=== PATIENT | female | born 1970 | race Caucasian/White ===

== ENCOUNTER 2017-09-27 15:15 | Outpatient (RCR) | payer OTHER, MEDICAID, SELFPAY ==
--- NOTE | 2017-06-05 16:45 | PT.OTN ---
Current Diagnoses Radiculopathy, lumbosacral region (06/05/17) Muscle weakness (generalized) (06/05/17) Myalgia (06/05/17) Sprain of sacroiliac joint, subsequent encounter (06/05/17) On June 05, 2017 our therapy services consisting of Speech, Occupational, and Physical therapy transitioned from [employer] electronic documentation system to a new [employer] electronic system. All documentation prior to June 05 can be found under [employer] saved data. From June 05 forward, all medical record documentation will be in [employer] 6.1.
--- NOTE | 2017-06-05 18:24 | PT.OTN ---
Current Diagnoses Radiculopathy, lumbosacral region (06/05/17) Muscle weakness (generalized) (06/05/17) Myalgia (06/05/17) Sprain of sacroiliac joint, subsequent encounter (06/05/17) Physical Therapy Treatment Note PT-OP-A Visit Information Start: 06/05/17 16:49 Freq: Status: Active Protocol: Activity Type Activity Date Activity User E-Sign Co-Sign Detail Recorded Client Recorded Date Recorded By Document 06/05/17 16:20 GGD [email or web address] 06/05/17 18:24 GGD 06/05/17 16:20 Out-Patient Physical Therapy Visit Information [Visit Information] -Visit Type Treatment Note -Visit Start Time 16:00 -Visit Stop Time 16:55 -Total Visit Minutes 55 -Visit Number 3 -Number of OVER THE ROAD DRIVER Visits 1 [Evaluation Information] -Evaluation Date 05/16/17 PT-OP-C Subjective Start: 06/05/17 16:49 Freq: Status: Active Protocol: Activity Type Activity Date Activity User E-Sign Co-Sign Detail Recorded Client Recorded Date Recorded By Document 06/05/17 16:20 GGD [email or web address] 06/05/17 18:24 GGD 06/05/17 16:20 OP-PT Subjective [Patient Comments] -Patient Comments Pt states she been doing her HEP. She has increase in pain with sleep and wakes from pain after 3-4 hours of sleep . OP-PT Pain Assessment [Location] Right Lower -Pain Location Details Right leg -Intensity 5 -Scale Used Numeric (1 - 10 ) -Description Sharp Shooting -Radiating Location hip into lower leg -Other Pain Aggravating Factors Sleeping PT-OP-Q Treatments Start: 06/05/17 16:49 Freq: Status: Active Protocol: Activity Type Activity Date Activity User E-Sign Co-Sign Detail Recorded Client Recorded Date Recorded By Document 06/05/17 16:20 GGD [email or web address] 06/05/17 18:24 GGD 06/05/17 16:20 Therapeutic Exercises [Supine Exercises] 1 -Supine Exercise Name Pirifomis Stretch -Side right -Reps/Minutes 2 [Sitting Exercises] 1 -Sitting Exercise Name Sciatic Nerve glides -Side right -Reps/Minutes 10 each -Comments SB B knee flexed, SB L with R knee ext , SB L with R knee ext & SB L C/S Manual Therapy Treatment [Soft Tissue Mobilization] 2 -Body Location quadratus lumborum -Mobilization Type Rolling -Intensity/Depth Moderate -Body Position Prone 1 -Body Location Pirformis -Mobilization Type Myofascial Release Rolling Sustained Pressure -Intensity/Depth Deep -Body Position Prone [Joint Mobilizations] 1 -Joint L4-5, L5-S1 -Direction Gap, distraction -Grade III -Body Position Sidelying -Reps/Duration 15 -Comments in left sidelying PT-OP-R Modalities Start: 06/05/17 16:49 Freq: Status: Active Protocol: Activity Type Activity Date Activity User E-Sign Co-Sign Detail Recorded Client Recorded Date Recorded By Document 06/05/17 16:20 GGD [email or web address] 06/05/17 18:24 GGD 06/05/17 16:20 Hot Pack/Cold Pack [Treatment] Cold Pack -Location L/S, -Patient Position Supine -Treatment Duration (minutes) 10 -Patient Tolerance Good PT-OP-T Assessment and Plan Start: 06/05/17 16:49 Freq: Status: Active Protocol: Activity Type Activity Date Activity User E-Sign Co-Sign Detail Recorded Client Recorded Date Recorded By Document 06/05/17 16:20 GGD [email or web address] 06/05/17 18:24 GGD 06/05/17 16:20 Physical Therapy Assessment [Assessment Summary] -Assessment Pt need cues for correct form with nerve glides and not to stretch into pain. She had decrease in pain after STM . Physical Therapy Plan [Frequency and Duration] -Frequency of Treatment 2x/Week -Duration of Treatment 8 weeks -Plan of Care Start Date 05/16/17 -Plan of Care End Date 07/10/17 [Next Visit Focus/Plan] -Next Visit Plan Progression under current plan and stretching, hip strengthening and review sciatic nerve glides.
--- NOTE | 2017-06-07 17:37 | PT.OTN ---
Current Diagnoses Radiculopathy, lumbosacral region (06/07/17) Muscle weakness (generalized) (06/07/17) Myalgia (06/07/17) Sprain of sacroiliac joint, subsequent encounter (06/07/17) Physical Therapy Treatment Note PT-OP-A Visit Information Start: 06/05/17 16:49 Freq: Status: Active Protocol: Activity Type Activity Date Activity User E-Sign Co-Sign Detail Recorded Client Recorded Date Recorded By Document 06/07/17 15:47 [place] [id number] 06/07/17 15:49 [facility] 06/07/17 15:47 Out-Patient Physical Therapy Visit Information [Visit Information] -Visit Type Treatment Note -Visit Start Time 15:15 -Visit Stop Time 15:58 -Total Visit Minutes 43 -Visit Number 4 -Number of WELDING MACHINE OPERATOR ARC Visits 0 [Evaluation Information] -Evaluation Date 05/16/17 PT-OP-C Subjective Start: 06/05/17 16:49 Freq: Status: Active Protocol: Activity Type Activity Date Activity User E-Sign Co-Sign Detail Recorded Client Recorded Date Recorded By Document 06/07/17 15:47 [place] [id number] 06/07/17 15:49 [facility] 06/07/17 15:47 OP-PT Subjective [Patient Comments] -Patient Comments Pt reports that she has less pain with sleep and feels like she had less pain at work today. -Patient Reported Progress Improving PT-OP-L Special Tests Start: 06/07/17 15:49 Freq: Status: Active Protocol: Activity Type Activity Date Activity User E-Sign Co-Sign Detail Recorded Client Recorded Date Recorded By Document 06/07/17 15:49 [place] [id number] 06/07/17 15:50 [facility] 06/07/17 15:49 Special Tests [LE Neural Special Tests] Sciatic Nerve Tension -Test Results (+) -Comments 35 deg hip flex (+) sciatic pain 60 deg. hip flexion without sciatic pain with hip add and IR ( modified slump) PT-OP-Q Treatments Start: 06/05/17 16:49 Freq: Status: Active Protocol: Activity Type Activity Date Activity User E-Sign Co-Sign Detail Recorded Client Recorded Date Recorded By Document 06/07/17 15:50 [facility] [email or web address] 06/07/17 15:54 [facility] 06/07/17 15:50 Therapeutic Exercises [Supine Exercises] 1 -Supine Exercise Name Piriformis Stretch -Side right -Reps/Minutes 2 min [Sitting Exercises] 1 -Sitting Exercise Name Sciatic Nerve glides -Side right -Equipment Used RLE on 5 step; seated, mirror for visual -Reps/Minutes 2 x 10 each -Comments SB L with R knee ext, SB L with R knee ext & SB L C/S Manual Therapy Treatment [Soft Tissue Mobilization] 2 -Body Location quadratus lumborum -Mobilization Type Rolling -Intensity/Depth Moderate -Body Position Sidelying -Comments Right [Joint Mobilizations] 1 -Joint L4-5, L5-S1 -Direction Gap, distraction -Grade III -Body Position Sidelying -Reps/Duration 18 -Comments L sidelying, towel under L side @ L4 PT-OP-R Modalities Start: 06/05/17 16:49 Freq: Status: Active Protocol: Activity Type Activity Date Activity User E-Sign Co-Sign Detail Recorded Client Recorded Date Recorded By Document 06/07/17 15:54 [facility] [email or web address] 06/07/17 15:54 [facility] 06/07/17 15:54 Hot Pack/Cold Pack [Treatment] Cold Pack -Location L/S, R hip -Patient Position Supine -Treatment Duration (minutes) 10 -Patient Tolerance Good PT-OP-T Assessment and Plan Start: 06/05/17 16:49 Freq: Status: Active Protocol: Activity Type Activity Date Activity User E-Sign Co-Sign Detail Recorded Client Recorded Date Recorded By Document 06/07/17 15:54 [facility] [email or web address] 06/07/17 16:00 [facility] 06/07/17 15:54 Physical Therapy Assessment [Assessment Summary] -Assessment Pt with decreased hypomobility of L4 on L5, but still with QL tension. 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 Pt with good understanding of HEP, less cuing for LE alignment required. Physical Therapy Plan [Frequency and Duration] -Frequency of Treatment 2x/Week -Duration of Treatment 8 wks -Plan of Care Start Date 05/16/17 -Plan of Care End Date 07/10/17 [Next Visit Focus/Plan] -Next Visit Plan continue with lumbar mobilizations, nerve glides in sitting (can progress to 6 step for RLE).
--- NOTE | 2017-06-12 18:00 | PT.OTN ---
Current Diagnoses Radiculopathy, lumbosacral region (06/12/17) Muscle weakness (generalized) (06/12/17) Myalgia (06/12/17) Sprain of sacroiliac joint, subsequent encounter (06/12/17) Physical Therapy Treatment Note PT-OP-A Visit Information Start: 06/05/17 16:49 Freq: Status: Active Protocol: Document 06/12/17 16:15 GGD (Rec: 06/12/17 17:59 GGD [email or web address]) Out-Patient Physical Therapy Visit Information Visit Information Visit Type Treatment Note Visit Start Time 15:50 Visit Stop Time 16:45 Total Visit Minutes 55 Visit Number 5 Number of QUANTITATIVE RESEARCH ANALYST Visits 1 Evaluation Information Evaluation Date 05/16/17 PT-OP-C Subjective Start: 06/05/17 16:49 Freq: Status: Active Protocol: Document 06/12/17 16:15 GGD (Rec: 06/12/17 17:59 GGD [email or web address]) OP-PT Subjective Patient Comments Patient Comments Pt states that her LBK feel tight today. PT-OP-L Special Tests Start: 06/07/17 15:49 Freq: Status: Active Protocol: Document 06/07/17 15:49 [facility] (Rec: 06/07/17 15:50 [facility] [email or web address]) Special Tests LE Neural Special Tests Sciatic Nerve Tension Test Results (+) Comments 35 deg hip flex (+) sciatic pain 60 deg. hip flexion without sciatic pain with hip add and IR (modified slump) PT-OP-Q Treatments Start: 06/05/17 16:49 Freq: Status: Active Protocol: Document 06/12/17 16:15 GGD (Rec: 06/12/17 17:59 GGD [email or web address]) Therapeutic Exercises Supine Exercises 1 Supine Exercise Name Piriformis Stretch Side right Reps/Minutes 2 min Sitting Exercises 1 Sitting Exercise Name Sciatic Nerve glides Side right Equipment Used RLE on 6 step; seated, mirror for visual Reps/Minutes 2 x 10 each Comments SB L with R knee ext, SB L with R knee ext & SB L C/S Manual Therapy Treatment Soft Tissue Mobilization 2 Body Location quadratus lumborum Mobilization Type Rolling Intensity/Depth Moderate Body Position Sidelying 1 Body Location Pirformis Mobilization Type Rolling Sustained Pressure Intensity/Depth Moderate Body Position Sidelying Joint Mobilizations 1 Joint L4-5, L5-S1 Direction Gap, distraction Grade III Body Position Sidelying Reps/Duration 18 Comments L sidelying, towel under L side @ L4 PT-OP-R Modalities Start: 06/05/17 16:49 Freq: Status: Active Protocol: Document 06/12/17 16:15 GGD (Rec: 06/12/17 17:59 GGD [email or web address]) Hot Pack/Cold Pack Treatment Cold Pack Location L/S, R hip Patient Position Supine Treatment Duration (minutes) 10 Patient Tolerance Good PT-OP-T Assessment and Plan Start: 06/05/17 16:49 Freq: Status: Active Protocol: Document 06/12/17 16:15 GGD (Rec: 06/12/17 17:59 GGD [email or web address]) Physical Therapy Assessment Assessment Summary Assessment Pt had increase in muscle tension and tenderness to QL Physical Therapy Plan Frequency and Duration Frequency of Treatment 2x/Week Duration of Treatment 8 wks Plan of Care Start Date 05/16/17 Plan of Care End Date 07/10/17 Next Visit Focus/Plan Next Visit Plan Progress under current plan of care and hip strengthening
--- NOTE | 2017-06-19 16:33 | PT.OTN ---
Current Diagnoses Radiculopathy, lumbosacral region (06/19/17) Muscle weakness (generalized) (06/19/17) Myalgia (06/19/17) Sprain of sacroiliac joint, subsequent encounter (06/19/17) Physical Therapy Treatment Note PT-OP-A Visit Information Start: 06/05/17 16:49 Freq: Status: Active Protocol: Document 06/19/17 15:21 GGD (Rec: 06/19/17 16:33 GGD [email or web address]) Out-Patient Physical Therapy Visit Information Visit Information Visit Type Treatment Note Visit Start Time 15:50 Visit Stop Time 16:45 Total Visit Minutes 55 Visit Number 6 Number of INTERNAL WHOLESALER Visits 2 Evaluation Information Evaluation Date 05/16/17 PT-OP-C Subjective Start: 06/05/17 16:49 Freq: Status: Active Protocol: Document 06/19/17 15:21 GGD (Rec: 06/19/17 16:33 GGD [email or web address]) OP-PT Subjective Patient Comments Patient Comments Pt states that she is sore. She been working more and only had one day off. Document 06/19/17 15:21 GGD (Rec: 06/19/17 16:33 GGD [email or web address]) Therapeutic Exercises Supine Exercises 2 Supine Exercise Name Hamstring Side right Resistance passive 1 Supine Exercise Name Piriformis Stretch Side right Reps/Minutes 2 min Sitting Exercises 1 Sitting Exercise Name Sciatic Nerve glides Side right Equipment Used RLE on 6 step; seated, mirror for visual Reps/Minutes 2 x 10 each Comments SB L with R knee ext, SB L with R knee ext & SB L C/S Manual Therapy Treatment Soft Tissue Mobilization 2 Body Location quadratus lumborum Mobilization Type Rolling Intensity/Depth Moderate Body Position Sidelying 1 Body Location Pirformis Mobilization Type Rolling Sustained Pressure Intensity/Depth Moderate Body Position Sidelying Joint Mobilizations 1 Joint L4-5, L5-S1 Direction Gap, distraction Grade III Body Position Sidelying Reps/Duration 18 Comments L sidelying, towel under L side @ L4 PT-OP-R Modalities Start: 06/05/17 16:49 Freq: Status: Active Protocol: Document 06/19/17 15:21 GGD (Rec: 06/19/17 16:33 GGD [email or web address]) Hot Pack/Cold Pack Treatment Cold Pack Location L/S, R hip Patient Position Supine Treatment Duration (minutes) 10 Patient Tolerance Good PT-OP-T Assessment and Plan Start: 06/05/17 16:49 Freq: Status: Active Protocol: Document 06/19/17 15:21 GGD (Rec: 06/19/17 16:33 GGD [email or web address]) Physical Therapy Assessment Assessment Summary Assessment Pt had decrease in pain after stretches. Physical Therapy Plan Frequency and Duration Frequency of Treatment 2x/Week Duration of Treatment 8 wks Plan of Care Start Date 05/16/17 Plan of Care End Date 07/10/17 Next Visit Focus/Plan Next Visit Plan Progress under current plan of care and flexibility
--- NOTE | 2017-06-21 16:09 | PT.OTN ---
Current Diagnoses Radiculopathy, lumbosacral region (06/21/17) Muscle weakness (generalized) (06/21/17) Myalgia (06/21/17) Sprain of sacroiliac joint, subsequent encounter (06/21/17) Physical Therapy Treatment Note PT-OP-A Visit Information Start: 06/05/17 16:49 Freq: Status: Active Protocol: Document 06/21/17 15:57 [facility] (Rec: 06/21/17 16:08 [facility] [email or web address]) Out-Patient Physical Therapy Visit Information Visit Information Visit Type Treatment Note Visit Start Time 15:15 Visit Stop Time 16:05 Total Visit Minutes 50 Visit Number 7 Number of ANALYSIS OR RESEARCH SAFETY INSPECTOR Visits 0 Evaluation Information Evaluation Date 05/16/17 PT-OP-C Subjective Start: 06/05/17 16:49 Freq: Status: Active Protocol: Document 06/21/17 15:57 [facility] (Rec: 06/21/17 16:08 [facility] [email or web address]) OP-PT Subjective Patient Comments Patient Comments Pt notes that her buttock and leg symptoms are better, but still has a knot in the R back . Patient Reported Progress Improving PT-OP-F Manual Assessment Start: 06/05/17 16:49 Freq: Status: Active Protocol: Document 06/21/17 15:57 [facility] (Rec: 06/21/17 16:08 [facility] [email or web address]) Manual Assessments Soft Tissue Assessment Soft Tissue Mobility Assessment TTP: R QL. PT-OP-L Special Tests Start: 06/07/17 15:49 Freq: Status: Active Protocol: Document 06/07/17 15:49 [facility] (Rec: 06/07/17 15:50 [facility] [email or web address]) Special Tests Neural Special Tests- Lower Body Sciatic Nerve Tension Test Results (+) Comments 35 deg hip flex (+) sciatic pain 60 deg. hip flexion without sciatic pain with hip add and IR (modified slump) PT-OP-Q Treatments Start: 06/05/17 16:49 Freq: Status: Active Protocol: Document 06/21/17 15:57 [facility] (Rec: 06/21/17 16:08 [facility] [email or web address]) Therapeutic Exercises Supine Exercises 3 Supine Exercise Name LTR Side bilateral Reps/Minutes 2 min 1 Supine Exercise Name Piriformis Stretch Side right Reps/Minutes 2 min Standing Exercises 1 Standing Exercise Name R QL stretch @ // bars Reps/Minutes 6 min. Manual Therapy Treatment Soft Tissue Mobilization 2 Body Location quadratus lumborum Mobilization Type Rolling Intensity/Depth Moderate Body Position Sidelying Comments 18 min Joint Mobilizations 1 Joint L4-5, L5-S1 Direction Gap, distraction Grade III Body Position Sidelying Reps/Duration 12 min Comments L sidelying PT-OP-R Modalities Start: 06/05/17 16:49 Freq: Status: Active Protocol: Document 06/21/17 15:57 [facility] (Rec: 06/21/17 16:08 [facility] [email or web address]) Hot Pack/Cold Pack Treatment Cold Pack Location L/S, R hip Patient Position Prone Treatment Duration (minutes) 10 Patient Tolerance Good PT-OP-T Assessment and Plan Start: 06/05/17 16:49 Freq: Status: Active Protocol: Document 06/21/17 15:57 [facility] (Rec: 06/21/17 16:08 [facility] [email or web address]) Physical Therapy Assessment Assessment Summary Assessment Pt with decreased QL tension and tenderness with manual therapy and stretching techniques. Pt appears to be reporting less distal symptoms , but does present with positive secondary tension of musculature of the lumbar spine. Physical Therapy Plan Frequency and Duration Frequency of Treatment 2x/Week Duration of Treatment 8 wks Plan of Care Start Date 05/16/17 Plan of Care End Date 07/10/17 Next Visit Focus/Plan Next Visit Plan check QL tension and tenderness, attempt quadruped position with progression toward alt LE extension if tolerable.
--- NOTE | 2017-06-26 17:21 | PT.OTN ---
Current Diagnoses Radiculopathy, lumbosacral region (06/26/17) Muscle weakness (generalized) (06/26/17) Myalgia (06/26/17) Sprain of sacroiliac joint, subsequent encounter (06/26/17) Physical Therapy Treatment Note PT-OP-A Visit Information Start: 06/05/17 16:49 Freq: Status: Active Protocol: Document 06/26/17 15:15 GGD (Rec: 06/26/17 17:21 GGD [email or web address]) Out-Patient Physical Therapy Visit Information Visit Information Visit Type Treatment Note Visit Start Time 15:15 Visit Stop Time 16:05 Total Visit Minutes 50 Visit Number 8 Number of SHEET METAL TECHNICIAN Visits 1 Evaluation Information Evaluation Date 05/16/17 PT-OP-C Subjective Start: 06/05/17 16:49 Freq: Status: Active Protocol: Document 06/26/17 15:15 GGD (Rec: 06/26/17 17:21 GGD [email or web address]) OP-PT Subjective Patient Comments Patient Comments Pt states that she feels more less tight and doing stretching everyday. PT-OP-F Manual Assessment Start: 06/05/17 16:49 Freq: Status: Active Protocol: Document 06/21/17 15:57 [facility] (Rec: 06/21/17 16:08 [facility] [email or web address]) Manual Assessments Soft Tissue Assessment Soft Tissue Mobility Assessment TTP: R QL. PT-OP-L Special Tests Start: 06/07/17 15:49 Freq: Status: Active Protocol: Document 06/07/17 15:49 [facility] (Rec: 06/07/17 15:50 [facility] [email or web address]) Special Tests Neural Special Tests- Lower Body Sciatic Nerve Tension Test Results (+) Comments 35 deg hip flex (+) sciatic pain 60 deg. hip flexion without sciatic pain with hip add and IR (modified slump) PT-OP-Q Treatments Start: 06/05/17 16:49 Freq: Status: Active Protocol: Document 06/26/17 15:15 GGD (Rec: 06/26/17 17:21 GGD [email or web address]) Therapeutic Exercises Supine Exercises 3 Supine Exercise Name LTR Side bilateral Reps/Minutes 2 min 1 Supine Exercise Name Piriformis Stretch Side right Reps/Minutes 2 min Standing Exercises 1 Standing Exercise Name R QL stretch @ // bars Reps/Minutes 6 min. Other Exercises 1 Other Exercise Name Quad Alt LE Reps/Minutes 10 Manual Therapy Treatment Soft Tissue Mobilization 2 Body Location quadratus lumborum Mobilization Type Rolling Intensity/Depth Moderate Body Position Sidelying Comments 18 min Joint Mobilizations 1 Joint L4-5, L5-S1 Direction Gap, distraction Grade III Body Position Sidelying Reps/Duration 12 min Comments L sidelying PT-OP-R Modalities Start: 06/05/17 16:49 Freq: Status: Active Protocol: Document 06/26/17 15:15 GGD (Rec: 06/26/17 17:21 GGD [email or web address]) Hot Pack/Cold Pack Treatment Cold Pack Location L/S, R hip Patient Position Prone Treatment Duration (minutes) 10 Patient Tolerance Good PT-OP-T Assessment and Plan Start: 06/05/17 16:49 Freq: Status: Active Protocol: Document 06/26/17 15:15 GGD (Rec: 06/26/17 17:21 GGD [email or web address]) Physical Therapy Assessment Assessment Summary Assessment PT improving with mobility and decrease muscle tenderness. Physical Therapy Plan Frequency and Duration Frequency of Treatment 2x/Week Duration of Treatment 8 wks Plan of Care Start Date 05/16/17 Plan of Care End Date 07/10/17 Next Visit Focus/Plan Next Visit Plan Progress under current plan of care and stabilization
--- NOTE | 2017-06-28 17:55 | PT.OTN ---
Current Diagnoses Radiculopathy, lumbosacral region (06/28/17) Muscle weakness (generalized) (06/28/17) Myalgia (06/28/17) Sprain of sacroiliac joint, subsequent encounter (06/28/17) Physical Therapy Treatment Note PT-OP-A Visit Information Start: 06/05/17 16:49 Freq: Status: Active Protocol: Document 06/28/17 16:05 [facility] (Rec: 06/28/17 17:54 [facility] [email or web address]) Out-Patient Physical Therapy Visit Information Visit Information Visit Type Treatment Note Visit Start Time 15:15 Visit Stop Time 16:05 Total Visit Minutes 50 Visit Number 9 Number of AVIATION MAINTENANCE INSTRUCTOR Visits 0 Evaluation Information Evaluation Date 05/16/17 PT-OP-C Subjective Start: 06/05/17 16:49 Freq: Status: Active Protocol: Document 06/28/17 16:05 [facility] (Rec: 06/28/17 17:54 [facility] [email or web address]) OP-PT Subjective Patient Comments Patient Comments Pt notes no pain in upper back this session. She admits that her lower back has been a little sore but no pain distally. PT-OP-F Manual Assessment Start: 06/05/17 16:49 Freq: Status: Active Protocol: Document 06/21/17 15:57 [facility] (Rec: 06/21/17 16:08 [facility] [email or web address]) Manual Assessments Soft Tissue Assessment Soft Tissue Mobility Assessment TTP: R QL. PT-OP-L Special Tests Start: 06/07/17 15:49 Freq: Status: Active Protocol: Document 06/07/17 15:49 [facility] (Rec: 06/07/17 15:50 [facility] [email or web address]) Special Tests Neural Special Tests- Lower Body Sciatic Nerve Tension Test Results (+) Comments 35 deg hip flex (+) sciatic pain 60 deg. hip flexion without sciatic pain with hip add and IR (modified slump) PT-OP-Q Treatments Start: 06/05/17 16:49 Freq: Status: Active Protocol: Document 06/28/17 16:05 [facility] (Rec: 06/28/17 17:54 [facility] [email or web address]) Therapeutic Exercises Supine Exercises 5 Supine Exercise Name Alternating hip/knee flex/ext Side bilateral Equipment Used 55 cm ball 4 Supine Exercise Name Bridging Side bilateral Equipment Used 55 cm ball Reps/Minutes 15 reps 3 Supine Exercise Name LTR Side bilateral Equipment Used 55 cm ball Reps/Minutes 2 min 1 Supine Exercise Name Piriformis Stretch Side right Reps/Minutes 2 min Sitting Exercises 2 Sitting Exercise Name piriformis stretch Reps/Minutes 4 min Other Exercises 1 Other Exercise Name Quad Alt LE Reps/Minutes 10 Manual Therapy Treatment Soft Tissue Mobilization 3 Body Location lumbosacral mm. Mobilization Type Strumming Intensity/Depth Moderate Body Position Sidelying Comments right Joint Mobilizations 1 Joint L4-5, L5-S1 Direction Gap, distraction Grade III Body Position Sidelying Reps/Duration 14 min Comments L sidelying PT-OP-R Modalities Start: 06/05/17 16:49 Freq: Status: Active Protocol: Document 06/28/17 16:05 [facility] (Rec: 06/28/17 17:54 [facility] [email or web address]) Hot Pack/Cold Pack Treatment Cold Pack Location L/S, R hip Patient Position Prone Treatment Duration (minutes) 10 Patient Tolerance Good PT-OP-T Assessment and Plan Start: 06/05/17 16:49 Freq: Status: Active Protocol: Document 06/28/17 16:05 [facility] (Rec: 06/28/17 17:54 [email or web address] Physical Therapy Assessment Assessment Summary Assessment Pt with less antalgic gait, and able to perform seated piriformis stretch (unable to do at initial evaluation). Physical Therapy Plan Next Visit Focus/Plan Next Note Type Treatment Note Next Visit Plan core stability Please Sign and Return: I have reviewed this Plan of Care and certify that the skilled therapy services above are required to meet the patient???s needs. Physician Signature Date Printed Name and Credentials Clinical Instructor Signature Printed Name and Credentials
--- NOTE | 2017-07-05 16:20 | PT.OTN ---
Current Diagnoses Radiculopathy, lumbosacral region (07/05/17) Muscle weakness (generalized) (07/05/17) Myalgia (07/05/17) Sprain of sacroiliac joint, subsequent encounter (07/05/17) Physical Therapy Treatment Note PT-OP-A Visit Information Start: 06/05/17 16:49 Freq: Status: Active Protocol: Document 07/05/17 16:10 RCC (Rec: 07/05/17 16:20 RCC [email or web address]) Out-Patient Physical Therapy Visit Information Visit Information Visit Type Treatment Note Visit Start Time 15:15 Visit Stop Time 16:10 Total Visit Minutes 55 Visit Number 10 Number of ENTRY LEVEL ACCOUNT MANAGER Visits 0 Evaluation Information Evaluation Date 05/16/17 PT-OP-C Subjective Start: 06/05/17 16:49 Freq: Status: Active Protocol: Document 07/05/17 16:10 RCC (Rec: 07/05/17 16:20 RCC [email or web address]) OP-PT Subjective Patient Comments Patient Comments Pt reports she has no lower leg pain this past week, but has had some R sided low back pain increased while at work. PT-OP-F Manual Assessment Start: 06/05/17 16:49 Freq: Status: Active Protocol: Document 07/05/17 16:10 RCC (Rec: 07/05/17 16:20 RCC [email or web address]) Manual Assessments Soft Tissue Assessment Soft Tissue Mobility Assessment Moderate tension in R QL and piriformis. PT-OP-L Special Tests Start: 06/07/17 15:49 Freq: Status: Active Protocol: Document 06/07/17 15:49 RCC (Rec: 06/07/17 15:50 RCC [email or web address]) Special Tests Neural Special Tests- Lower Body Sciatic Nerve Tension Test Results (+) Comments 35 deg hip flex (+) sciatic pain 60 deg. hip flexion without sciatic pain with hip add and IR (modified slump) PT-OP-Q Treatments Start: 06/05/17 16:49 Freq: Status: Active Protocol: Document 07/05/17 16:10 RCC (Rec: 07/05/17 16:20 RCC [email or web address]) Therapeutic Exercises Supine Exercises 2 Supine Exercise Name Hamstring Side right Resistance passive 1 Supine Exercise Name Piriformis Stretch Side right Reps/Minutes 2 min Sidelying Exercises 1 Sidelying Exercise Name R QL stretch Side right Reps/Minutes 2 min Manual Therapy Treatment Soft Tissue Mobilization 3 Body Location lumbosacral mm. Mobilization Type Strumming Intensity/Depth Moderate Body Position Sidelying Comments right 10 min 2 Body Location quadratus lumborum Mobilization Type Rolling Intensity/Depth Moderate Body Position Sidelying Comments 20 min 1 Body Location Pirformis Mobilization Type Rolling Sustained Pressure Intensity/Depth Moderate Body Position Sidelying Comments 10 min PT-OP-R Modalities Start: 06/05/17 16:49 Freq: Status: Active Protocol: Document 07/05/17 16:10 RCC (Rec: 07/05/17 16:20 RCC [email or web address]) Hot Pack/Cold Pack Treatment Cold Pack Location L/S, R hip Patient Position Supine Treatment Duration (minutes) 10 Patient Tolerance Good PT-OP-T Assessment and Plan Start: 06/05/17 16:49 Freq: Status: Active Protocol: Document 07/05/17 16:10 RCC (Rec: 07/05/17 16:20 [facility] [email or web address]) Physical Therapy Assessment Assessment Summary Assessment Pt with increased tension in quadratus lumborum on the R, but no more symptoms below the lumbosacral spine. Piriformis flexibility appears to be improving with greater ease for stretching. Physical Therapy Plan Frequency and Duration Frequency of Treatment 2x/Week Duration of Treatment 8 wks Plan of Care Start Date 05/16/17 Plan of Care End Date 07/10/17 Next Visit Focus/Plan Next Note Type Re-Evaluation Next Visit Plan Re-assess objective measures. Please Sign and Return: I have reviewed this Plan of Care and certify that the skilled therapy services above are required to meet the patient?s needs. Physician Signature Date Printed Name and Credentials Clinical Instructor Signature Printed Name and Credentials
--- NOTE | 2017-07-10 17:20 | PT.OPPOC ---
Current Diagnoses Radiculopathy, lumbosacral region (07/10/17) Muscle weakness (generalized) (07/10/17) Myalgia (07/10/17) Sprain of sacroiliac joint, subsequent encounter (07/10/17) Provider Visit Care Team Role Provider Type Nahun Mariee MD Family Provider Physician Primary Care Provider Specialty: Family Practice Address: [address] [place] [address], [id number] Email: DALTON Thomas Attending Provider Non-Staff Specialty: Medical Address: [address] [place] [address], [id number] Email: Plan Of Care PT-OP-T Assessment and Plan Start: 06/05/17 16:49 Freq: Status: Active Protocol: Document 07/10/17 16:54 EA (Rec: 07/10/17 17:17 EA [id number]) Physical Therapy Assessment Rehab Potential Rehabilitation Potential Good Goals Three Impairment Grade 2 tenderness to upper gluteals and SI joint. Chief Transfer And Pumphouse Operator Goal (LTG) Patient will exhibit grade 0-1 tenderness to right SI jnt and upper gluteal region LTG Duration 4 wks Two Impairment Increase right lateral trunk bending during gait Care Home Goal (LTG) Patient will exhibit improve core control with decrease lateral trunk bending to right . 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 Patient also exhibited increased lateral trunk bending to right during heel strike to left which placing increase stress to SI joint. During the course of the treatment, patient is progressing and will continue to benefit with skilled PT. Plan of Care Dates Plan of Care Start Date 05/16/17 Plan of Care End Date 07/10/17 Please Sign and Return: I have reviewed this Plan of Care and certify that the skilled therapy services above are required to meet the patient?s needs. Physician Signature Date Printed Name and Credentials Clinical Instructor Signature Printed Name and Credentials
--- NOTE | 2017-07-10 17:20 | PT.OTRE ---
Current Diagnoses Radiculopathy, lumbosacral region (07/10/17) Muscle weakness (generalized) (07/10/17) Myalgia (07/10/17) Sprain of sacroiliac joint, subsequent encounter (07/10/17) Surgical History History of carpal tunnel repair Provider Visit Care Team Role Provider Type Nahun Mariee MD Family Provider Physician Primary Care Provider Specialty: Family Practice Address: [address] [place] [address], [id number] Email: DALTON Thomas Attending Provider Non-Staff Specialty: Medical Address: [address] [place] [address], [id number] Email: Physical Therapy Re-Evaluation PT-OP-A Visit Information Start: 06/05/17 16:49 Freq: Status: Active Protocol: Document 07/10/17 16:54 EA (Rec: 07/10/17 17:17 EA [id number]) Out-Patient Physical Therapy Visit Information Visit Information Visit Type Treatment Note Visit Note Progress report perform to his visit Total Visit Minutes 55 Visit Number 11 PT-OP-C Subjective Start: 06/05/17 16:49 Freq: Status: Active Protocol: Document 07/10/17 16:54 EA (Rec: 07/10/17 17:17 EA [id number]) OP-PT Subjective Patient Comments Patient Comments Patient reports that pain comes and goes and rated 5/10 with weight bearing activities and 2/10 with rest. Patient states she might undergo MRI if pain does not improve with PT. Patient Reported Progress Improving Patient Questionnaires Oswestry Low Back Index Oswestry Score 13 Oswestry Impairment 1 to 19% Impaired (Score 1-19) PT-OP-F Manual Assessment Start: 06/05/17 16:49 Freq: Status: Active Protocol: Document 07/05/17 16:10 RCC (Rec: 07/05/17 16:20 RCC [email or web address]) Manual Assessments Soft Tissue Assessment Soft Tissue Mobility Assessment Moderate tension in R QL and piriformis. PT-OP-L Special Tests Start: 06/07/17 15:49 Freq: Status: Active Protocol: Document 07/10/17 16:54 EA (Rec: 07/10/17 17:17 EA [id number]) Special Tests Lumbar Spine Special Tests Other- 2 Test Results + single leg step up Straight Leg Raise Test Results + pain at SI joint Comments No pain radiation thigh Other- 1 Test Results + Gaenlen's test PT-OP-Q Treatments Start: 06/05/17 16:49 Freq: Status: Active Protocol: Document 07/10/17 16:54 EA (Rec: 07/10/17 17:17 EA [id number]) Therapeutic Exercises Supine Exercises 4 Supine Exercise Name Bridging Side bilateral Equipment Used 55 cm ball Reps/Minutes 15 reps Comments with isomet hip ABD: BTB 2 Supine Exercise Name Hamstring Side right Resistance passive 1 Supine Exercise Name Piriformis Stretch Side right Reps/Minutes 2 min Prone Exercises 1 Prone Exercise Name Right HIP extension with Abdominal bracing Reps/Minutes 15 x 2 Sidelying Exercises 1 Sidelying Exercise Name Clamshell Side right Resistance BTB Reps/Minutes x 12 reps x 2 Gait Training Gait Activity 1 Description Focus on decreasing lateral trunk bending to right Manual Therapy Treatment Soft Tissue Mobilization 3 Body Location lumbosacral mm. Mobilization Type Strumming Intensity/Depth Moderate Body Position Sidelying Comments right 10 min 2 Body Location quadratus lumborum Mobilization Type Rolling Intensity/Depth Moderate Body Position Sidelying 1 Body Location Pirformis Mobilization Type Rolling Sustained Pressure Intensity/Depth Moderate Body Position Sidelying PT-OP-R Modalities Start: 06/05/17 16:49 Freq: Status: Active Protocol: Document 07/10/17 16:54 EA (Rec: 07/10/17 17:17 EA [id number]) Electric Stimulation Electric Stimulation Interferential Current (IFC) Body Location Right UG, Paralumbars Duration (Minutes) 15 Combined With Heat/Cold Hot Pack PT-OP-T Assessment and Plan Start: 06/05/17 16:49 Freq: Status: Active Protocol: Document 07/10/17 16:54 EA (Rec: 07/10/17 17:17 EA [id number]) Physical Therapy Assessment Rehab Potential Rehabilitation Potential Good Goals Three Impairment Grade 2 tenderness to upper gluteals and SI joint. [facility] Goal (LTG) Patient will exhibit grade 0-1 tenderness to right SI jnt and upper gluteal region LTG Duration 4 wks Two Impairment Increase right lateral trunk bending during gait [facility] Goal (LTG) Patient will exhibit improve core control with decrease lateral trunk bending to right . 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 Patient also exhibited increased lateral trunk bending to right during heel strike to left which placing increase stress to SI joint. During the course of the treatment, patient is progressing and will continue to benefit with skilled PT. Please Sign and Return: I have reviewed this Plan of Care and certify that the skilled therapy services above are required to meet the patient?s needs. Physician Signature Date Printed Name and Credentials Clinical Instructor Signature Printed Name and Credentials
--- NOTE | 2017-07-17 15:56 | PT.OTN ---
Current Diagnoses Radiculopathy, lumbosacral region (07/17/17) Muscle weakness (generalized) (07/17/17) Myalgia (07/17/17) Sprain of sacroiliac joint, subsequent encounter (07/17/17) Physical Therapy Treatment Note PT-OP-A Visit Information Start: 06/05/17 16:49 Freq: Status: Active Protocol: Document 07/17/17 15:43 EA (Rec: 07/17/17 15:56 EA [id number]) Out-Patient Physical Therapy Visit Information Visit Information Visit Type Treatment Note Visit Start Time 15:15 Visit Stop Time 15:55 Total Visit Minutes 40 Visit Number 12 PT-OP-C Subjective Start: 06/05/17 16:49 Freq: Status: Active Protocol: Document 07/17/17 15:43 EA (Rec: 07/17/17 15:56 EA [id number]) OP-PT Subjective Patient Comments Patient Comments Patient reports right leg shooting pain occured when at bed time; states lying down to left side does not increase pain. PT-OP-F Manual Assessment Start: 06/05/17 16:49 Freq: Status: Active Protocol: Document 07/05/17 16:10 RCC (Rec: 07/05/17 16:20 RCC [email or web address]) Manual Assessments Soft Tissue Assessment Soft Tissue Mobility Assessment Moderate tension in R QL and piriformis. PT-OP-L Special Tests Start: 06/07/17 15:49 Freq: Status: Active Protocol: Document 07/10/17 16:54 EA (Rec: 07/10/17 17:17 EA [id number]) Special Tests Lumbar Spine Special Tests Other- 2 Test Results + single leg step up Straight Leg Raise Test Results + pain at SI joint Comments No pain radiation thigh Other- 1 Test Results + Gaenlen's test PT-OP-Q Treatments Start: 06/05/17 16:49 Freq: Status: Active Protocol: Document 07/17/17 15:43 EA (Rec: 07/17/17 15:56 EA [id number]) Cardio Equipment Recumbent Bicycle Duration (Minutes) 5 Resistance 4 Therapeutic Exercises Supine Exercises 4 Supine Exercise Name Bridging Side bilateral Equipment Used 55 cm ball Reps/Minutes 15 reps Comments with isomet hip ABD: BTB 2 Supine Exercise Name Hamstring Side right Resistance passive 1 Supine Exercise Name Piriformis Stretch Side right Reps/Minutes 2 min Prone Exercises 1 Prone Exercise Name Right HIP extension with Abdominal bracing Reps/Minutes 15 x 2 Sidelying Exercises 1 Sidelying Exercise Name Clamshell Side right Resistance BTB Reps/Minutes x 12 reps x 2 Manual Therapy Treatment Soft Tissue Mobilization 3 Body Location lumbosacral mm. Mobilization Type Strumming Intensity/Depth Moderate Body Position Sidelying Comments right 10 min 2 Body Location quadratus lumborum Mobilization Type Rolling Intensity/Depth Moderate Body Position Sidelying 1 Body Location Pirformis Mobilization Type Rolling Sustained Pressure Intensity/Depth Moderate Body Position Sidelying PT-OP-R Modalities Start: 06/05/17 16:49 Freq: Status: Active Protocol: Document 07/17/17 15:43 EA (Rec: 07/17/17 15:56 EA [id number]) Electric Stimulation Electric Stimulation Interferential Current (IFC) Body Location Right UG, Paralumbars Duration (Minutes) 15 Combined With Heat/Cold Hot Pack PT-OP-T Assessment and Plan Start: 06/05/17 16:49 Freq: Status: Active Protocol: Document 07/17/17 15:43 EA (Rec: 07/17/17 15:56 EA [id number]) Physical Therapy Assessment Assessment Summary Assessment Decreased stiffness and tenderness noted during the treatment. Multiple mid back and left mid ribs cramps complaint during hamstring stretch but disappear after few seconds of stretch. Physical Therapy Plan Next Visit Focus/Plan Next Visit Plan Cont. with current plan. Please Sign and Return: I have reviewed this Plan of Care and certify that the skilled therapy services above are required to meet the patient?s needs. Physician Signature Date Printed Name and Credentials Clinical Instructor Signature Printed Name and Credentials
--- NOTE | 2017-07-24 15:15 | PT.OTN ---
Current Diagnoses Radiculopathy, lumbosacral region (07/24/17) Muscle weakness (generalized) (07/24/17) Myalgia (07/24/17) Sprain of sacroiliac joint, subsequent encounter (07/24/17) Physical Therapy Treatment Note PT-OP-A Visit Information Start: 06/05/17 16:49 Freq: Status: Active Protocol: Document 07/24/17 15:15 GGD (Rec: 07/24/17 17:49 GGD [email or web address]) Out-Patient Physical Therapy Visit Information Visit Information Visit Type Treatment Note Visit Start Time 15:15 Visit Stop Time 16:15 Total Visit Minutes 60 Visit Number 13 Number of WOOD HEEL FINISHER Visits 1 Evaluation Information Evaluation Date 05/16/17 PT-OP-C Subjective Start: 06/05/17 16:49 Freq: Status: Active Protocol: Document 07/24/17 15:15 GGD (Rec: 07/24/17 17:49 GGD [email or web address]) OP-PT Subjective Patient Comments Patient Comments Pt states she feels tight, but overall a little better. PT-OP-F Manual Assessment Start: 06/05/17 16:49 Freq: Status: Active Protocol: Document 07/05/17 16:10 RCC (Rec: 07/05/17 16:20 RCC [email or web address]) Manual Assessments Soft Tissue Assessment Soft Tissue Mobility Assessment Moderate tension in R QL and piriformis. PT-OP-L Special Tests Start: 06/07/17 15:49 Freq: Status: Active Protocol: Document 07/10/17 16:54 EA (Rec: 07/10/17 17:17 EA [id number]) Special Tests Lumbar Spine Special Tests Other- 2 Test Results + single leg step up Straight Leg Raise Test Results + pain at SI joint Comments No pain radiation thigh Other- 1 Test Results + Gaenlen's test PT-OP-Q Treatments Start: 06/05/17 16:49 Freq: Status: Active Protocol: Document 07/24/17 15:15 GGD (Rec: 07/24/17 17:49 GGD [email or web address]) Cardio Equipment Recumbent Bicycle Duration (Minutes) 5 Resistance 4 Therapeutic Exercises Supine Exercises 4 Supine Exercise Name Bridging Side bilateral Equipment Used 55 cm ball Reps/Minutes 15 reps 2 Supine Exercise Name Hamstring Side right Resistance passive 1 Supine Exercise Name Piriformis Stretch Side right Reps/Minutes 2 min Prone Exercises 1 Prone Exercise Name Right HIP extension with Abdominal bracing Reps/Minutes 15 x 2 Sidelying Exercises 1 Sidelying Exercise Name Clamshell Side right Resistance level 2 Equipment Used Thera band Reps/Minutes x 15 reps x 2 Manual Therapy Treatment Soft Tissue Mobilization 3 Body Location lumbosacral mm. Mobilization Type Strumming Intensity/Depth Moderate Body Position Sidelying Comments right 10 min 2 Body Location quadratus lumborum Mobilization Type Rolling Intensity/Depth Moderate Body Position Sidelying 1 Body Location Pirformis Mobilization Type Rolling Sustained Pressure Intensity/Depth Moderate Body Position Prone Self-Care/Home Management Treatment Education Other Education Sleep postioning. PT-OP-R Modalities Start: 06/05/17 16:49 Freq: Status: Active Protocol: Document 07/24/17 15:15 GGD (Rec: 07/24/17 17:49 GGD [email or web address]) Electric Stimulation Electric Stimulation Interferential Current (IFC) Body Location right glutes and lumbar spine Duration (Minutes) 15 Combined With Heat/Cold Hot Pack Ultrasound Therapy Treatment right lumbar paraspinals Treatment Duration (minutes) 8 Patient Position Prone Coupling Medium Ultrasound Gel Applicator Size (cm2) 5 Frequency Setting (mHz) 1 Mode Setting Continuous Intensity Setting (w/cm2) 1.5 PT-OP-T Assessment and Plan Start: 06/05/17 16:49 Freq: Status: Active Protocol: Document 07/24/17 15:15 GGD (Rec: 07/24/17 17:49 GGD [email or web address]) Physical Therapy Assessment Assessment Summary Assessment Pt had decrease pain. She still limit in hip ROM and increase in tightness in lumbar spine muscle right greater than left. She need cues for core stability with exercise. Physical Therapy Plan Next Visit Focus/Plan Next Note Type Treatment Note Next Visit Plan Progress stretching and core stability.
--- NOTE | 2017-07-26 15:54 | PT.OTN ---
Current Diagnoses Radiculopathy, lumbosacral region (07/26/17) Muscle weakness (generalized) (07/26/17) Myalgia (07/26/17) Sprain of sacroiliac joint, subsequent encounter (07/26/17) Physical Therapy Treatment Note PT-OP-A Visit Information Start: 06/05/17 16:49 Freq: Status: Active Protocol: Document 07/26/17 15:54 RCC (Rec: 07/26/17 16:06 RCC [email or web address]) Out-Patient Physical Therapy Visit Information Visit Information Visit Type Treatment Note Visit Start Time 15:15 Visit Stop Time 15:54 Total Visit Minutes 39 Visit Number 14 Number of TRUCK DRIVER HEAVY Visits 0 Evaluation Information Evaluation Date 05/16/17 PT-OP-C Subjective Start: 06/05/17 16:49 Freq: Status: Active Protocol: Document 07/26/17 15:54 RCC (Rec: 07/26/17 16:06 RCC [email or web address]) OP-PT Subjective Patient Comments Patient Comments Pt notes that she is not having pain into the RLE or buttock, but does have a sharp pain in the R SI joint today. PT-OP-F Manual Assessment Start: 06/05/17 16:49 Freq: Status: Active Protocol: Document 07/26/17 15:54 RCC (Rec: 07/26/17 16:06 RCC [email or web address]) Manual Assessments Other Manual Assessments Other Manual Assessments R posterior ilial rotation. PT-OP-L Special Tests Start: 06/07/17 15:49 Freq: Status: Active Protocol: Document 07/10/17 16:54 EA (Rec: 07/10/17 17:17 EA [id number]) Special Tests Lumbar Spine Special Tests Other- 2 Test Results + single leg step up Straight Leg Raise Test Results + pain at SI joint Comments No pain radiation thigh Other- 1 Test Results + Gaenlen's test PT-OP-Q Treatments Start: 06/05/17 16:49 Freq: Status: Active Protocol: Document 07/26/17 15:54 RCC (Rec: 07/26/17 16:06 RCC [email or web address]) Therapeutic Exercises Supine Exercises 5 Supine Exercise Name Alternating hip/knee flex/ext Side bilateral Equipment Used 55 cm ball 4 Supine Exercise Name Bridging Side bilateral Equipment Used 55 cm ball Reps/Minutes 15 reps 3 Supine Exercise Name LTR Side bilateral Equipment Used 55 cm ball Reps/Minutes 1 x 20 1 Supine Exercise Name Piriformis Stretch Side right Reps/Minutes 2 min Manual Therapy Treatment Soft Tissue Mobilization 4 Body Location Gluteals Mobilization Type Strumming Intensity/Depth Moderate Body Position Prone Comments Right 1 Body Location Pirformis Mobilization Type Rolling Sustained Pressure Intensity/Depth Moderate Body Position Prone Comments Right Joint Mobilizations 2 Joint SI joint (Right) Direction caudal Grade III Body Position Prone Reps/Duration 10 min Manual Techniques 1 Type MET to correct R posterior ilial rotation Body Position Supine Reps/Duration 5 min PT-OP-R Modalities Start: 06/05/17 16:49 Freq: Status: Active Protocol: Document 07/24/17 15:15 GGD (Rec: 07/24/17 17:49 GGD [email or web address]) Electric Stimulation Electric Stimulation Interferential Current (IFC) Body Location right glutes and lumbar spine Duration (Minutes) 15 Combined With Heat/Cold Hot Pack Ultrasound Therapy Treatment right lumbar paraspinals Treatment Duration (minutes) 8 Patient Position Prone Coupling Medium Ultrasound Gel Applicator Size (cm2) 5 Frequency Setting (mHz) 1 Mode Setting Continuous Intensity Setting (w/cm2) 1.5 PT-OP-T Assessment and Plan Start: 06/05/17 16:49 Freq: Status: Active Protocol: Document 07/26/17 15:54 RCC (Rec: 07/26/17 16:06 RCC [email or web address]) Physical Therapy Assessment Goals Three Impairment Grade 2 tenderness to upper gluteals and SI joint. [facility] Goal (LTG) Patient will exhibit grade 0-1 tenderness to right SI jnt and upper gluteal region LTG Duration 4 wks Two Impairment Increase right lateral trunk bending during gait [facility] Goal (LTG) Patient will exhibit improve core control with decrease lateral trunk bending to right . LTG Duration 4 wks One Impairment Pain reports of 5/10 with mobility Brand Analyst Goal (LTG) Patient will report 2/10 pain complaint with mobility LTG Duration 4 wks Progress Towards Goals Progress Comments goals and objective measures taken 07/10/2017 and dates extended from 07/10/2017 to , as dates were not changed upon prior re-evaluation. Assessment Summary Assessment Pt with less discomfort into the R buttock and no symptoms into the R leg. Pt still with joint hypomobility of the R SI joint, and lacks core stability and strength of lower quadrant to stabilize her lumbosacral spine throughout the day and with work related tasks. Pt would greatly benefit from skilled outpatient physical therapy to progress strength and stability, improve posture, and progress toward pain-free work related tasks. Goals and objective measures taken 2017 and dates extended from to , as dates were not changed upon prior re -evaluation. Physical Therapy Plan Frequency and Duration Frequency of Treatment 2x/Week Duration of Treatment 8 wks Plan of Care Start Date 07/10/17 Plan of Care End Date 08/07/17 Therapeutic Interventions Therapeutic Interventions Aquatic Therapy Home Exercise Program Joint Mobilizations Neuromuscular Re-education Patient/Caregiver Education Self-Care/Home Management Soft Tissue Mobilization Taping Therapeutic Activities Therapeutic Exercises Modalities Cold Pack/Ice Massage Electric Stimulation Hot Packs Ultrasound Next Visit Focus/Plan Next Note Type Treatment Note Next Visit Plan Progress stretching and core stability.
--- NOTE | 2017-07-26 16:47 | PT.OPPOC ---
Current Diagnoses Radiculopathy, lumbosacral region (07/26/17) Muscle weakness (generalized) (07/26/17) Myalgia (07/26/17) Sprain of sacroiliac joint, subsequent encounter (07/26/17) Provider Visit Care Team Role Provider Type Nahun Mariee MD Family Provider Physician Primary Care Provider Specialty: Family Practice Address: [address] [place] [address], [id number] Email: DALTON Thomas Attending Provider Non-Staff Specialty: Medical Address: [address] [place] [address], [id number] Email: Plan Of Care PT-OP-T Assessment and Plan Start: 06/05/17 16:49 Freq: Status: Active Protocol: Document 07/26/17 15:54 RCC (Rec: 07/26/17 16:06 RCC [email or web address]) Physical Therapy Assessment Goals Three Impairment Grade 2 tenderness to upper gluteals and SI joint. Commissary Superintendent Goal (LTG) Patient will exhibit grade 0-1 tenderness to right SI jnt and upper gluteal region LTG Duration 4 wks Two Impairment Increase right lateral trunk bending during gait Commissary Superintendent Goal (LTG) Patient will exhibit improve core control with decrease lateral trunk bending to right . LTG Duration 4 wks One Impairment Pain reports of 5/10 with mobility [facility] Goal (LTG) Patient will report 2/10 pain complaint with mobility LTG Duration 4 wks Progress Towards Goals Progress Comments goals and objective measures taken 07/10/2017 and dates extended from 07/10/2017 to , as dates were not changed upon prior re-evaluation. Assessment Summary Assessment Pt with less discomfort into the R buttock and no symptoms into the R leg. Pt still with joint hypomobility of the R SI joint, and lacks core stability and strength of lower quadrant to stabilize her lumbosacral spine throughout the day and with work related tasks. Pt would greatly benefit from skilled outpatient physical therapy to progress strength and stability, improve posture, and progress toward pain-free work related tasks. Goals and objective measures taken 2017 and dates extended from to 7/3/208, as dates were not changed upon prior re -evaluation. Physical Therapy Plan Frequency and Duration Frequency of Treatment 2x/Week Duration of Treatment 4 wks Plan of Care Start Date 07/10/17 Plan of Care End Date 08/07/17 Therapeutic Interventions Therapeutic Interventions Aquatic Therapy Home Exercise Program Joint Mobilizations Neuromuscular Re-education Patient/Caregiver Education Self-Care/Home Management Soft Tissue Mobilization Taping Therapeutic Activities Therapeutic Exercises Modalities Cold Pack/Ice Massage Electric Stimulation Hot Packs Ultrasound Next Visit Focus/Plan Next Note Type Treatment Note Next Visit Plan Progress stretching and core stability. Plan of Care Dates Plan of Care Start Date 07/10/17 Plan of Care End Date 08/07/17 Please Sign and Return: I have reviewed this Plan of Care and certify that the skilled therapy services above are required to meet the patient?s needs. Physician Signature Date Printed Name and Credentials Clinical Instructor Signature Printed Name and Credentials
--- NOTE | 2017-08-02 16:05 | PT.OTN ---
Current Diagnoses Radiculopathy, lumbosacral region (08/02/17) Muscle weakness (generalized) (08/02/17) Myalgia (08/02/17) Sprain of sacroiliac joint, subsequent encounter (08/02/17) Physical Therapy Treatment Note PT-OP-A Visit Information Start: 06/05/17 16:49 Freq: Status: Active Protocol: Document 08/02/17 15:55 RCC (Rec: 08/02/17 16:02 RCC [email or web address]) Out-Patient Physical Therapy Visit Information Visit Information Visit Type Treatment Note Visit Start Time 15:15 Visit Stop Time 16:05 Total Visit Minutes 50 Visit Number 15 Number of FISHER WEIR Visits 0 Evaluation Information Evaluation Date 05/16/17 PT-OP-C Subjective Start: 06/05/17 16:49 Freq: Status: Active Protocol: Document 08/02/17 15:55 RCC (Rec: 08/02/17 16:02 RCC [email or web address]) OP-PT Subjective Patient Comments Patient Comments Pt notes she still feels a little knot in her R buttock , but significantly better since last session. PT-OP-F Manual Assessment Start: 06/05/17 16:49 Freq: Status: Active Protocol: Document 07/26/17 15:54 RCC (Rec: 07/26/17 16:06 RCC [email or web address]) Manual Assessments Other Manual Assessments Other Manual Assessments R posterior ilial rotation. PT-OP-L Special Tests Start: 06/07/17 15:49 Freq: Status: Active Protocol: Document 07/10/17 16:54 EA (Rec: 07/10/17 17:17 EA [id number]) Special Tests Lumbar Spine Special Tests Other- 2 Test Results + single leg step up Straight Leg Raise Test Results + pain at SI joint Comments No pain radiation thigh Other- 1 Test Results + Gaenlen's test PT-OP-Q Treatments Start: 06/05/17 16:49 Freq: Status: Active Protocol: Document 08/02/17 15:55 RCC (Rec: 08/02/17 16:02 RCC [email or web address]) Therapeutic Exercises Supine Exercises 6 Supine Exercise Name posterior pelvic tilt Side bilateral Reps/Minutes 15 reps 3 Supine Exercise Name LTR Side bilateral Reps/Minutes 1 x 20 1 Supine Exercise Name Piriformis Stretch Side right Reps/Minutes 2 min Other Exercises 2 Other Exercise Name Quadruped cat/camel 1 Other Exercise Name Quadruped alternating LE lift Side bilateral Resistance 10 Manual Therapy Treatment Soft Tissue Mobilization 4 Body Location Gluteals Mobilization Type Strumming Intensity/Depth Moderate Body Position Prone Comments Right 1 Body Location Pirformis Mobilization Type Rolling Sustained Pressure Intensity/Depth Moderate Body Position Prone Comments Right Joint Mobilizations 2 Joint SI joint (Right) Direction caudal Grade III Body Position Prone Reps/Duration 10 min Manual Techniques 1 Type MET to correct R posterior ilial rotation Body Position Supine Reps/Duration 5 min PT-OP-R Modalities Start: 06/05/17 16:49 Freq: Status: Active Protocol: Document 08/02/17 15:55 RCC (Rec: 08/02/17 16:02 RCC [email or web address]) Hot Pack/Cold Pack Treatment Hot Pack Location l/s, R hip Patient Position Supine Treatment Duration (minutes) 10 Patient Tolerance Good PT-OP-T Assessment and Plan Start: 06/05/17 16:49 Freq: Status: Active Protocol: Document 08/02/17 15:55 RCC (Rec: 08/02/17 16:02 RCC [email or web address]) Physical Therapy Assessment Assessment Summary Assessment Pt still with hypomobility of the SI joint on the R, but less tension noted in musculature this date. Physical Therapy Plan Frequency and Duration Frequency of Treatment 2x/Week Duration of Treatment 8 wks Plan of Care Start Date 07/10/17 Plan of Care End Date 08/07/17 Next Visit Focus/Plan Next Note Type Progress Note Next Visit Plan reassess objective measures.
--- NOTE | 2017-08-09 15:50 | PT.OPPOC ---
Current Diagnoses Radiculopathy, lumbosacral region (08/09/17) Muscle weakness (generalized) (08/09/17) Myalgia (08/09/17) Sprain of sacroiliac joint, subsequent encounter (08/09/17) Provider Visit Care Team Role Provider Type Nahun Mariee MD Family Provider Physician Primary Care Provider Specialty: Family Practice Address: [address] [place] [address], [id number] Email: DALTON Thomas Attending Provider Non-Staff Specialty: Medical Address: [address] [place] [address], [id number] Email: Plan Of Care PT-OP-T Assessment and Plan Start: 06/05/17 16:49 Freq: Status: Active Protocol: Document 08/09/17 15:50 RCC (Rec: 08/09/17 18:07 RCC [email or web address]) Physical Therapy Assessment Rehab Potential Rehabilitation Potential Excellent Impairments Impairments Activity Tolerance Functional Activities Functional Mobility Pain Posture Soft Tissue Mobility Goals Three Impairment Grade 2 tenderness to upper gluteals and SI joint. Prison Goal (LTG) Patient will exhibit grade 0-1 tenderness to right SI jnt and upper gluteal region *Goal achieved 08/09/2017 LTG Duration 4 wks Two Impairment Increase right lateral trunk bending during gait Collet Gluer Goal (LTG) Patient will exhibit improve core control with decrease lateral trunk bending to right . *Goal achieved 08/09/2017. No lateral sway with gait. LTG Duration 4 wks One Impairment Pain reports of 5/10 with mobility Prison Goal (LTG) Patient will report 2/10 pain complaint with mobility LTG Duration 6 wks Progress Towards Goals Progress Towards Goals Slow Progress due to Activity Tolerance Progress Comments met goal 2 and 3 but pt still with pain in prolonged standing and work 5/10 at worst, but no longer extending distally below SI joint. Assessment Summary Assessment Pt with SI joint and lumbar spinal musculature pain, but no longer with radiating pain into the upper leg. Pt still has pain with work related tasks and prolonged standing, but we have initiated pelvic posture/positioning activities and will progress to standing activities with core engagement to assist with work demand. Overall, pt does have times of no pain but still moderate intensity in standing for prolonged periods of time . Pt would greatly benefit from the continuation of skilled physical therapy to improve core stability, decrease pain, and improve posture and body mechanics to decrease discomfort at work. Physical Therapy Plan Frequency and Duration Frequency of Treatment 1x/Week Duration of Treatment 6 weeks Plan of Care Start Date 08/09/17 Plan of Care End Date 09/20/17 Therapeutic Interventions Therapeutic Interventions Aquatic Therapy Home Exercise Program Joint Mobilizations Neuromuscular Re-education Patient/Caregiver Education Self-Care/Home Management Soft Tissue Mobilization Taping Therapeutic Activities Therapeutic Exercises Modalities Cold Pack/Ice Massage Electric Stimulation Hot Packs Ultrasound Next Visit Focus/Plan Next Note Type Treatment Note Next Visit Plan pelvic positioning, standing body mechanics, core stability . Plan of Care Dates Plan of Care Start Date 08/09/17 Plan of Care End Date 09/20/17 Please Sign and Return: I have reviewed this Plan of Care and certify that the skilled therapy services above are required to meet the patient?s needs. Physician Signature Date Printed Name and Credentials Clinical Instructor Signature Printed Name and Credentials
--- NOTE | 2017-08-09 15:50 | PT.OTN ---
Current Diagnoses Radiculopathy, lumbosacral region (08/09/17) Muscle weakness (generalized) (08/09/17) Myalgia (08/09/17) Sprain of sacroiliac joint, subsequent encounter (08/09/17) Physical Therapy Treatment Note PT-OP-A Visit Information Start: 06/05/17 16:49 Freq: Status: Active Protocol: Document 08/09/17 15:50 RCC (Rec: 08/09/17 18:07 RCC [email or web address]) Out-Patient Physical Therapy Visit Information Visit Information Visit Type Treatment Note Visit Start Time 15:20 Visit Stop Time 15:50 Total Visit Minutes 30 Visit Number 16 Number of HEALTHCARE TRANSLATOR Visits 0 Evaluation Information Evaluation Date 05/16/17 PT-OP-B Current Condition Start: 06/05/17 16:49 Freq: Status: Active Protocol: Document 08/09/17 15:50 RCC (Rec: 08/09/17 18:07 RCC [email or web address]) Current Condition History of Current Condition Onset Date 04/23/17 History of Current Condition Pt is a 47 y/o female presenting to outpatient physical therapy witha c/o R sided low back, buttock, and upper leg pain. Denies any JEN . 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 She denies any numbness or tingling. Heat and massage help decrease pain. Prior Treatments and Tests Radiograph 05/26/17 negative ( lumbar spine) Future Testing and Treatments Planned MRI if continued pain/symptoms . PT-OP-C Subjective Start: 06/05/17 16:49 Freq: Status: Active Protocol: Document 08/09/17 15:50 RCC (Rec: 08/09/17 18:07 RCC [email or web address]) OP-PT Subjective Patient Comments Patient Comments Pt notes that she was able to sit in a car for 2.5 hours without increased back or buttock pain. She is still experiencing some low back/SI joint pain with prolonged standing at work. OP-PT Pain Assessment Location Right Lower Sacrum Pain Location Details @ worst; sometimes no pain Intensity 5 Scale Used Numeric (1 - 10) PT-OP-F Manual Assessment Start: 06/05/17 16:49 Freq: Status: Active Protocol: Document 08/09/17 15:50 RCC (Rec: 08/09/17 18:07 RCC [email or web address]) Manual Assessments Soft Tissue Assessment Soft Tissue Mobility Assessment Mild tenderness R QL and piriformis, moderate IT band. PT-OP-L Special Tests Start: 06/07/17 15:49 Freq: Status: Active Protocol: Document 08/09/17 15:50 RCC (Rec: 08/09/17 18:07 [facility] [email or web address]) Special Tests Lumbar Spine Special Tests Other- 2 Test Results negative (-) single leg step up Straight Leg Raise Test Results negative Other- 1 Test Results + Gaenlen's test PT-OP-Q Treatments Start: 06/05/17 16:49 Freq: Status: Active Protocol: Document 08/09/17 15:50 RCC (Rec: 08/09/17 18:07 [facility] [email or web address]) Therapeutic Exercises Sitting Exercises 3 Sitting Exercise Name posterior pelvic tilt Side bilateral Equipment Used 65 cm ball Manual Therapy Treatment Soft Tissue Mobilization 4 Body Location Gluteals Mobilization Type Strumming Intensity/Depth Moderate Body Position Prone Comments Right 2 Body Location quadratus lumborum Mobilization Type Rolling Intensity/Depth Moderate Body Position Sidelying 1 Body Location Pirformis Mobilization Type Rolling Sustained Pressure Intensity/Depth Moderate Body Position Prone Comments Right Joint Mobilizations 1 Joint L4-5, L5-S1 Direction Gap, distraction Grade III Body Position Sidelying Reps/Duration 10 min Comments L sidelying PT-OP-R Modalities Start: 06/05/17 16:49 Freq: Status: Active Protocol: Document 08/02/17 15:55 RCC (Rec: 08/02/17 16:02 [facility] [email or web address]) Hot Pack/Cold Pack Treatment Hot Pack Location l/s, R hip Patient Position Supine Treatment Duration (minutes) 10 Patient Tolerance Good PT-OP-T Assessment and Plan Start: 06/05/17 16:49 Freq: Status: Active Protocol: Document 08/09/17 15:50 RCC (Rec: 08/09/17 18:07 [facility] [email or web address]) Physical Therapy Assessment Rehab Potential Rehabilitation Potential Excellent Impairments Impairments Activity Tolerance Functional Activities Functional Mobility Pain Posture Soft Tissue Mobility Goals Three Impairment Grade 2 tenderness to upper gluteals and SI joint. Assisted Goal (LTG) Patient will exhibit grade 0-1 tenderness to right SI jnt and upper gluteal region *Goal achieved 08/09/2017 LTG Duration 4 wks Two Impairment Increase right lateral trunk bending during gait Assisted Goal (LTG) Patient will exhibit improve core control with decrease lateral trunk bending to right . *Goal achieved 08/09/2017. No lateral sway with gait. LTG Duration 4 wks One Impairment Pain reports of 5/10 with mobility Waistline Joiner Goal (LTG) Patient will report 2/10 pain complaint with mobility LTG Duration 4 wks Progress Towards Goals Progress Towards Goals Slow Progress due to Activity Tolerance Progress Comments met goal 2 and 3 but pt still with pain in prolonged standing and work 5/10 at worst, but no longer extending distally below SI joint. Assessment Summary Assessment Pt with SI joint and lumbar spinal musculature pain, but no longer with radiating pain into the upper leg. Pt still has pain with work related tasks and prolonged standing, but we have initiated pelvic posture/positioning activities and will progress to standing activities with core engagement to assist with work demand. Overall, pt does have times of no pain but still moderate intensity in standing for prolonged periods of time . Pt would greatly benefit from the continuation of skilled physical therapy to improve core stability, decrease pain, and improve posture and body mechanics to decrease discomfort at work. Physical Therapy Plan Frequency and Duration Frequency of Treatment 1x/Week Duration of Treatment 6 weeks Plan of Care Start Date 08/09/17 Plan of Care End Date 09/20/17 Therapeutic Interventions Therapeutic Interventions Aquatic Therapy Home Exercise Program Joint Mobilizations Neuromuscular Re-education Patient/Caregiver Education Self-Care/Home Management Soft Tissue Mobilization Taping Therapeutic Activities Therapeutic Exercises Modalities Cold Pack/Ice Massage Electric Stimulation Hot Packs Ultrasound Next Visit Focus/Plan Next Note Type Treatment Note Next Visit Plan pelvic positioning, standing body mechanics, core stability .
--- NOTE | 2017-08-16 15:15 | PT.OTN ---
Current Diagnoses Radiculopathy, lumbosacral region (08/16/17) Muscle weakness (generalized) (08/16/17) Myalgia (08/16/17) Sprain of sacroiliac joint, subsequent encounter (08/16/17) Physical Therapy Treatment Note PT-OP-A Visit Information Start: 06/05/17 16:49 Freq: Status: Active Protocol: Document 08/16/17 15:55 RCC (Rec: 08/16/17 17:18 RCC [email or web address]) Out-Patient Physical Therapy Visit Information Visit Information Visit Type Treatment Note Visit Start Time 15:15 Visit Stop Time 15:55 Total Visit Minutes 40 Visit Number 17 Number of CLINICAL DOCUMENTATION CLERK Visits 0 Evaluation Information Evaluation Date 05/16/17 PT-OP-B Current Condition Start: 06/05/17 16:49 Freq: Status: Active Protocol: Document 08/09/17 15:50 RCC (Rec: 08/09/17 18:07 RCC [email or web address]) Current Condition History of Current Condition Onset Date 04/23/17 History of Current Condition Pt is a 47 y/o female presenting to [facility] physical therapy witha c/o R sided low back, buttock, and upper leg pain. Denies any JEN . 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 She denies any numbness or tingling. Heat and massage help decrease pain. Prior Treatments and Tests Radiograph 05/26/17 negative ( lumbar spine) Future Testing and Treatments Planned MRI if continued pain/symptoms . PT-OP-C Subjective Start: 06/05/17 16:49 Freq: Status: Active Protocol: Document 08/16/17 15:55 RCC (Rec: 08/16/17 17:18 RCC [email or web address]) OP-PT Subjective Patient Comments Patient Comments Pt reports that she is doing well today, slight back pain but otherwise doing well at work as well. PT-OP-F Manual Assessment Start: 06/05/17 16:49 Freq: Status: Active Protocol: Document 08/16/17 15:55 RCC (Rec: 08/16/17 17:18 RCC [email or web address]) Manual Assessments Soft Tissue Assessment Soft Tissue Mobility Assessment TTP: R QL, multifidi. PT-OP-L Special Tests Start: 06/07/17 15:49 Freq: Status: Active Protocol: Document 08/09/17 15:50 RCC (Rec: 08/09/17 18:07 RCC [email or web address]) Special Tests Lumbar Spine Special Tests Other- 2 Test Results negative (-) single leg step up Straight Leg Raise Test Results negative Other- 1 Test Results + Gaenlen's test PT-OP-Q Treatments Start: 06/05/17 16:49 Freq: Status: Active Protocol: Document 08/16/17 15:55 RCC (Rec: 08/16/17 17:18 RCC [email or web address]) Therapeutic Exercises Supine Exercises 4 Supine Exercise Name Bridging Side bilateral Equipment Used 55 cm ball Reps/Minutes 15 reps 3 Supine Exercise Name LTR Side bilateral Reps/Minutes 1 x 20 1 Supine Exercise Name Piriformis Stretch Side right Sitting Exercises 4 Sitting Exercise Name Alternating UE lift, heel lift , LE lift Equipment Used 65 cm ball 3 Sitting Exercise Name posterior pelvic tilt Side bilateral Equipment Used 65 cm ball Standing Exercises 2 Standing Exercise Name Lifting/body mechanics Resistance 5-10 lbs Comments box lifts from 12 setting, stepping with holding weighted box Manual Therapy Treatment Soft Tissue Mobilization 3 Body Location lumbosacral mm. Mobilization Type Strumming Intensity/Depth Moderate Body Position Sidelying Comments right 2 Body Location quadratus lumborum Mobilization Type Rolling Intensity/Depth Moderate Body Position Sidelying Comments right PT-OP-R Modalities Start: 06/05/17 16:49 Freq: Status: Active Protocol: Document 08/02/17 15:55 RCC (Rec: 08/02/17 16:02 RCC [email or web address]) Hot Pack/Cold Pack Treatment Hot Pack Location l/s, R hip Patient Position Supine Treatment Duration (minutes) 10 Patient Tolerance Good PT-OP-T Assessment and Plan Start: 06/05/17 16:49 Freq: Status: Active Protocol: Document 08/16/17 15:55 RCC (Rec: 08/16/17 17:18 RCC [email or web address]) Physical Therapy Assessment Assessment Summary Assessment Pt with excessive lateral lean with alternating LE sitting on ball, but able to improve pelvic positioning and core activation. Pt requires moderate supervision and cuing for lifting technique and body mechanics and will require further ongoing training to prevent re-injury. Physical Therapy Plan Frequency and Duration Frequency of Treatment 1x/Week Duration of Treatment 6 weeks Plan of Care Start Date 08/09/17 Plan of Care End Date 08/16/18 Next Visit Focus/Plan Next Note Type Treatment Note Next Visit Plan core strengthening, lifting/ body mechanics.
--- NOTE | 2017-08-30 15:55 | PT.OTN ---
Current Diagnoses Radiculopathy, lumbosacral region (08/30/17) Muscle weakness (generalized) (08/30/17) Myalgia (08/30/17) Sprain of sacroiliac joint, subsequent encounter (08/30/17) Physical Therapy Treatment Note PT-OP-A Visit Information Start: 06/05/17 16:49 Freq: Status: Active Protocol: Document 08/30/17 15:55 RCC (Rec: 08/31/17 08:44 RCC [email or web address]) Out-Patient Physical Therapy Visit Information Visit Information Visit Type Treatment Note Visit Start Time 15:15 Visit Stop Time 15:55 Total Visit Minutes 40 Visit Number 18 Number of OPERATORS SCHOOL MANAGER Visits 0 Evaluation Information Evaluation Date 05/16/17 PT-OP-B Current Condition Start: 06/05/17 16:49 Freq: Status: Active Protocol: Document 08/09/17 15:50 RCC (Rec: 08/09/17 18:07 RCC [email or web address]) Current Condition History of Current Condition Onset Date 04/23/17 History of Current Condition Pt is a 47 y/o female presenting to [facility] physical therapy witha c/o R sided low back, buttock, and upper leg pain. Denies any JEN . 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 She denies any numbness or tingling. Heat and massage help decrease pain. Prior Treatments and Tests Radiograph 05/26/17 negative ( lumbar spine) Future Testing and Treatments Planned MRI if continued pain/symptoms . PT-OP-C Subjective Start: 06/05/17 16:49 Freq: Status: Active Protocol: Document 08/30/17 15:55 RCC (Rec: 08/31/17 08:44 RCC [email or web address]) OP-PT Subjective Patient Comments Patient Comments Denies pain into the RLE, but stiff today, and tight in the R low back. PT-OP-F Manual Assessment Start: 06/05/17 16:49 Freq: Status: Active Protocol: Document 08/30/17 15:55 RCC (Rec: 08/31/17 08:44 RCC [email or web address]) Manual Assessments Soft Tissue Assessment Soft Tissue Mobility Assessment TTP: R QL, multifidi. PT-OP-L Special Tests Start: 06/07/17 15:49 Freq: Status: Active Protocol: Document 08/09/17 15:50 RCC (Rec: 08/09/17 18:07 RCC [email or web address]) Special Tests Lumbar Spine Special Tests Other- 2 Test Results negative (-) single leg step up Straight Leg Raise Test Results negative Other- 1 Test Results + Gaenlen's test PT-OP-Q Treatments Start: 06/05/17 16:49 Freq: Status: Active Protocol: Document 08/30/17 15:55 RCC (Rec: 08/31/17 08:44 RCC [email or web address]) Therapeutic Exercises Supine Exercises 5 Supine Exercise Name Alternating hip/knee flex/ext Side bilateral Equipment Used 55 cm ball 3 Supine Exercise Name LTR Side bilateral Reps/Minutes 1 x 20 2 Supine Exercise Name Hamstring Side right Resistance passive 1 Supine Exercise Name Piriformis Stretch Side right Manual Therapy Treatment Soft Tissue Mobilization 3 Body Location lumbosacral mm. Mobilization Type Strumming Intensity/Depth Moderate Body Position Sidelying Comments right 2 Body Location quadratus lumborum Mobilization Type Rolling Intensity/Depth Moderate Body Position Sidelying Comments right 1 Body Location Pirformis Mobilization Type Rolling Sustained Pressure Intensity/Depth Moderate Body Position Sidelying Comments Right Joint Mobilizations 1 Joint L4-5, L5-S1 Direction Gap, distraction Grade III Body Position Sidelying Reps/Duration 10 min Comments L sidelying Manual Techniques 1 Type MET to correct R posterior ilial rotation Body Position Supine Reps/Duration 5 min PT-OP-R Modalities Start: 06/05/17 16:49 Freq: Status: Active Protocol: Document 08/02/17 15:55 RCC (Rec: 08/02/17 16:02 [facility] [email or web address]) Hot Pack/Cold Pack Treatment Hot Pack Location l/s, R hip Patient Position Supine Treatment Duration (minutes) 10 Patient Tolerance Good PT-OP-T Assessment and Plan Start: 06/05/17 16:49 Freq: Status: Active Protocol: Document 08/30/17 15:55 RCC (Rec: 08/31/17 08:44 RCC [email or web address]) Physical Therapy Assessment Assessment Summary Assessment Tension in the general lumbosacral musculature and R QL this session, but no referred pain. Pt likely with increased tone due to increased days of working and repetitive working tasks and improper body mechanics. Recommend continuing to train body mechanics, STR, and core stability to improve functional abilities and tolerance. Physical Therapy Plan Frequency and Duration Frequency of Treatment 1x/Week Duration of Treatment 6 weeks Plan of Care Start Date 08/09/17 Plan of Care End Date 09/20/17 Next Visit Focus/Plan Next Note Type Treatment Note Next Visit Plan core strengthening, lifting/ body mechanics.
--- NOTE | 2017-09-27 16:00 | PT.OPPOC ---
Current Diagnoses Radiculopathy, lumbosacral region (09/27/17) Muscle weakness (generalized) (09/27/17) Myalgia (09/27/17) Sprain of sacroiliac joint, subsequent encounter (09/27/17) Provider Visit Care Team Role Provider Type Nahun Mariee MD Family Provider Physician Primary Care Provider Specialty: Family Practice Address: [address] [place] [address], [id number] Email: DALTON Thomas Attending Provider Non-Staff Specialty: Medical Address: [address] [place] [address], [id number] Email: Plan Of Care PT-OP-T Assessment and Plan Start: 06/05/17 16:49 Freq: Status: Active Protocol: Document 09/27/17 16:00 RCC (Rec: 09/27/17 18:08 RCC [email or web address]) Physical Therapy Assessment Impairments Impairments Activity Tolerance Pain Posture Soft Tissue Mobility Strength Goals Four Impairment impaired body mechanics Penitentiary Goal (LTG) Patient will demonstrate neutral spine with lifting 10 lb object from ground prior to d/c. LTG Duration 6 wks Three Impairment Grade 2 tenderness to upper gluteals and SI joint. Penitentiary Goal (LTG) Patient will exhibit grade 0-1 tenderness to right SI jnt and upper gluteal region *Goal achieved 08/09/2017 LTG Duration 4 wks Two Impairment Increase right lateral trunk bending during gait Venue Attendant Goal (LTG) Patient will exhibit improve core control with decrease lateral trunk bending to right . *Goal achieved 08/09/2017. No lateral sway with gait. LTG Duration 4 wks One Impairment pain 6/10 Penitentiary Goal (LTG) Patient will report 2/10 pain complaint with mobility LTG Duration 6 wks Progress Towards Goals Progress Comments pt's pain has increased slightly since initial evaluation over the past week. Assessment Summary Assessment Pt with c/o increased pain over the past week, and denies any mechanism of injury. It is likely that pt's pain has once again been exacerbated by work related tasks, and she would benefit from continued training on body mechanics and lifting techniques, and continued skilled progression of strength and manual therapy for soft tissue and joint mobility restrictions. Pt may benefit from an MRI of the lumbar and SI region to rule out further injury to the lumbosacral region that could be non-mechanical causation of her symptoms. Recommend MRI of lumbar and sacral regions at this time given the extent of impairments and continued issues at these regions. Physical Therapy Plan Frequency and Duration Frequency of Treatment 1x/Week Duration of Treatment 6 weeks Plan of Care Start Date 09/27/17 Plan of Care End Date 11/08/17 Therapeutic Interventions Therapeutic Interventions Aquatic Therapy Home Exercise Program Joint Mobilizations Neuromuscular Re-education Patient/Caregiver Education Self-Care/Home Management Soft Tissue Mobilization Taping Therapeutic Activities Therapeutic Exercises Modalities Cold Pack/Ice Massage Electric Stimulation Hot Packs Ultrasound Other Referrals/Consults Referrals/Consults Recommended MD for MRI of lumbar and sacral regions- referred pain continued into buttock Next Visit Focus/Plan Next Note Type Treatment Note Next Visit Plan lifting and body mechanics r/t work, continued STR and joint mobilizations as needed. Plan of Care Dates Plan of Care Start Date 09/27/17 Plan of Care End Date 11/08/17 Please Sign and Return: I have reviewed this Plan of Care and certify that the skilled therapy services above are required to meet the patient?s needs. Physician Signature Date Printed Name and Credentials Clinical Instructor Signature Printed Name and Credentials
--- NOTE | 2017-09-27 16:00 | PT.OTN ---
Current Diagnoses Radiculopathy, lumbosacral region (09/27/17) Muscle weakness (generalized) (09/27/17) Myalgia (09/27/17) Sprain of sacroiliac joint, subsequent encounter (09/27/17) Physical Therapy Treatment Note PT-OP-A Visit Information Start: 06/05/17 16:49 Freq: Status: Active Protocol: Document 09/27/17 16:00 RCC (Rec: 09/27/17 18:08 RCC [email or web address]) Out-Patient Physical Therapy Visit Information Visit Information Visit Type Treatment Note Visit Start Time 15:15 Visit Stop Time 16:00 Total Visit Minutes 45 Visit Number 19 Number of RECEPTION SPECIALIST Visits 0 Evaluation Information Evaluation Date 05/16/17 PT-OP-B Current Condition Start: 06/05/17 16:49 Freq: Status: Active Protocol: Document 08/09/17 15:50 RCC (Rec: 08/09/17 18:07 RCC [email or web address]) Current Condition History of Current Condition Onset Date 04/23/17 History of Current Condition Pt is a 47 y/o female presenting to [facility] physical therapy witha c/o R sided low back, buttock, and upper leg pain. Denies any JEN . 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 She denies any numbness or tingling. Heat and massage help decrease pain. Prior Treatments and Tests Radiograph 05/26/17 negative ( lumbar spine) Future Testing and Treatments Planned MRI if continued pain/symptoms . PT-OP-C Subjective Start: 06/05/17 16:49 Freq: Status: Active Protocol: Document 09/27/17 16:00 RCC (Rec: 09/27/17 18:08 RCC [email or web address]) OP-PT Subjective Patient Comments Patient Comments Pt notes that over the past week her pain has worsened. She was feeling good for the first two weeks off of PT with doing her HEP, but this week she has had increased pain to the R low back and buttock. Patient Reported Progress Worse OP-PT Pain Assessment Location Right Lower Sacrum Intensity 6 Scale Used Numeric (1 - 10) PT-OP-F Manual Assessment Start: 06/05/17 16:49 Freq: Status: Active Protocol: Document 09/27/17 16:00 RCC (Rec: 09/27/17 18:08 [facility] [email or web address]) Manual Assessments Soft Tissue Assessment Soft Tissue Mobility Assessment TTP: R lower lumbar paraspinals and glute Joint Mobility Assessment Joint Mobility Assessment hypomobile R SI joint PT-OP-L Special Tests Start: 06/07/17 15:49 Freq: Status: Active Protocol: Document 09/27/17 16:00 RCC (Rec: 09/27/17 18:08 RCC [email or web address]) Special Tests Lumbar Spine Special Tests Other- 2 Test Results negative (+) single leg step up Straight Leg Raise Test Results negative PT-OP-Q Treatments Start: 06/05/17 16:49 Freq: Status: Active Protocol: Document 09/27/17 16:00 RCC (Rec: 09/27/17 18:08 [facility] [email or web address]) Therapeutic Exercises Standing Exercises 6 Standing Exercise Name 8 step up Side right Reps/Minutes 10 5 Standing Exercise Name hip extension Side right Reps/Minutes 10 4 Standing Exercise Name Gastroc stretch Side bilateral Equipment Used NOAH 3 Standing Exercise Name HS stretch Side bilateral Equipment Used stairs Manual Therapy Treatment Soft Tissue Mobilization 4 Body Location Gluteals Mobilization Type Strumming Intensity/Depth Moderate Body Position Prone Comments Right 3 Body Location lumbosacral mm. Mobilization Type Strumming Intensity/Depth Moderate Body Position Sidelying Comments right Joint Mobilizations 2 Joint SI joint (Right) Direction caudal Grade III Body Position Prone Reps/Duration 10 min 1 Joint L4-5, L5-S1 Direction Gap, distraction Grade III Body Position Sidelying Reps/Duration 10 min Comments L sidelying PT-OP-R Modalities Start: 06/05/17 16:49 Freq: Status: Active Protocol: Document 08/02/17 15:55 RCC (Rec: 08/02/17 16:02 [facility] [email or web address]) Hot Pack/Cold Pack Treatment Hot Pack Location l/s, R hip Patient Position Supine Treatment Duration (minutes) 10 Patient Tolerance Good PT-OP-T Assessment and Plan Start: 06/05/17 16:49 Freq: Status: Active Protocol: Document 09/27/17 16:00 RCC (Rec: 09/27/17 18:08 RCC [email or web address]) Physical Therapy Assessment Impairments Impairments Activity Tolerance Pain Posture Soft Tissue Mobility Strength Goals Four Impairment impaired body mechanics Dramatic Teacher Goal (LTG) Patient will demonstrate neutral spine with lifting 10 lb object from ground prior to d/c. LTG Duration 6 wks Three Impairment Grade 2 tenderness to upper gluteals and SI joint. Dramatic Teacher Goal (LTG) Patient will exhibit grade 0-1 tenderness to right SI jnt and upper gluteal region *Goal achieved 08/09/2017 LTG Duration 4 wks Two Impairment Increase right lateral trunk bending during gait Dramatic Teacher Goal (LTG) Patient will exhibit improve core control with decrease lateral trunk bending to right . *Goal achieved 08/09/2017. No lateral sway with gait. LTG Duration 4 wks One Impairment pain 6/10 Retirement Goal (LTG) Patient will report 2/10 pain complaint with mobility LTG Duration 6 wks Progress Towards Goals Progress Comments pt's pain has increased slightly since initial evaluation over the past week. Assessment Summary Assessment Pt with c/o increased pain over the past week, and denies any mechanism of injury. It is likely that pt's pain has once again been exacerbated by work related tasks, and she would benefit from continued training on body mechanics and lifting techniques, and continued skilled progression of strength and manual therapy for soft tissue and joint mobility restrictions. Pt may benefit from an MRI of the lumbar and SI region to rule out further injury to the lumbosacral region that could be non-mechanical causation of her symptoms. Recommend MRI of lumbar and sacral regions at this time given the extent of impairments and continued issues at these regions. Physical Therapy Plan Frequency and Duration Frequency of Treatment 1x/Week Duration of Treatment 6 weeks Plan of Care Start Date 09/27/17 Plan of Care End Date 11/08/17 Therapeutic Interventions Therapeutic Interventions Aquatic Therapy Home Exercise Program Joint Mobilizations Neuromuscular Re-education Patient/Caregiver Education Self-Care/Home Management Soft Tissue Mobilization Taping Therapeutic Activities Therapeutic Exercises Modalities Cold Pack/Ice Massage Electric Stimulation Hot Packs Ultrasound Other Referrals/Consults Referrals/Consults Recommended MD for MRI of lumbar and sacral regions- referred pain continued into buttock Next Visit Focus/Plan Next Note Type Treatment Note Next Visit Plan lifting and body mechanics r/t work, continued STR and joint mobilizations as needed.
--- NOTE | 2017-12-19 17:37 | PT.OPDS ---
Current Diagnoses Radiculopathy, lumbosacral region (09/27/17) Muscle weakness (generalized) (09/27/17) Myalgia (09/27/17) Sprain of sacroiliac joint, subsequent encounter (09/27/17) Provider Visit Care Team Role Provider Type Nahun Mariee MD Family Provider Physician Primary Care Provider Specialty: Family Practice Address: [address] [place] [address], [id number] Email: DALTON Thomas Attending Provider Non-Staff Specialty: Medical Address: [address] [place] [address], [id number] Email: Visit Number Visit Number 19 Discharge Summary PT-OP-B Current Condition Start: 06/05/17 16:49 Freq: Status: Active Protocol: Document 08/09/17 15:50 RCC (Rec: 08/09/17 18:07 RCC [email or web address]) Current Condition History of Current Condition Onset Date 04/23/17 History of Current Condition Pt is a 47 y/o female presenting to patient physical therapy witha c/o R sided low back, buttock, and upper leg pain. Denies any JEN . 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 She denies any numbness or tingling. Heat and massage help decrease pain. Prior Treatments and Tests Radiograph 05/26/17 negative ( lumbar spine) Future Testing and Treatments Planned MRI if continued pain/symptoms . PT-OP-C Subjective Start: 06/05/17 16:49 Freq: Status: Active Protocol: Document 12/19/17 17:37 RCC (Rec: 12/19/17 17:41 RCC [email or web address]) OP-PT Subjective Patient Comments Patient Comments Pt called into the clinic and stated that her health insurance had changed, she now has a $40 co-pay. She is unable to attend regular physical therapy at this time due to this. PT-OP-F Manual Assessment Start: 06/05/17 16:49 Freq: Status: Active Protocol: Document 09/27/17 16:00 RCC (Rec: 09/27/17 18:08 RCC [email or web address]) Manual Assessments Soft Tissue Assessment Soft Tissue Mobility Assessment TTP: R lower lumbar paraspinals and glute Joint Mobility Assessment Joint Mobility Assessment hypomobile R SI joint PT-OP-L Special Tests Start: 06/07/17 15:49 Freq: Status: Active Protocol: Document 09/27/17 16:00 RCC (Rec: 09/27/17 18:08 RCC [email or web address]) Special Tests Lumbar Spine Special Tests Other- 2 Test Results negative (+) single leg step up Straight Leg Raise Test Results negative PT-OP-T Assessment and Plan Start: 06/05/17 16:49 Freq: Status: Active Protocol: Document 12/19/17 17:37 RCC (Rec: 12/19/17 17:41 RCC [email or web address]) Physical Therapy Assessment Assessment Summary Assessment Pt is unable to attend physical therapy on a regular basis due to the financial burden of a high co-pay. Pt with some improvements with therapy but pain continues to be set off most of the time by work related tasks. Pt appeared to be compliant with her HEP, but was forced to work many hours which likely caused increased pain. Pt has not attended physical therapy since 09/27/17. Objective measures taken on her final visit on 09/27/17. Recommend recheck with MD and MRI if pain continues. Pt is no longer attending PT at this time. Physical Therapy Plan Discharge Physical Therapy Discharge Reasons No Longer Attending PT Discharge Comments increased co-pay amount, high financial burden
== END 2018-04-24 10:04 ==
LOC: PHYS 15:15
PROVIDERS: Family Provider Family Medicine; PCP Family Medicine; Visit Provider Nurse Practitioner Family
DX: M79.1 Myalgia (principal); S33.6XXD Sprain of sacroiliac joint, subsequent encounter; M54.17 Radiculopathy, lumbosacral region; M62.81 Muscle weakness (generalized)
CPT/HCPCS: 97010; 97014; 97035; 97110; 97116; 97140; G0283

== ENCOUNTER → 2018-05-06 14:41 | Outpatient (CLI) | payer OTHER, SELFPAY ==
--- NOTE | 2018-05-06 | DI.MG.S_ITS ---
BILATERAL DIGITAL SCREENING MAMMOGRAM 3D/2D WITH CAD: 05/06/2018 CLINICAL: Routine screening. Comparison is made to exams dated: 05/04/2017 mammogram, 05/01/2016 mammogram, 03/08/2015 mammogram, 03/05/2014 mammogram, 03/01/2012 mammogram, 02/24/2011 mammogram - [facility]. There are scattered fibroglandular elements in both breasts. Current study was also evaluated with a Computer Aided Detection (CAD) system. Previously noted 1.3 cm oval circumbscribed equal denisty mass in the lower inner left breast at middle depth remains stable in appearance to prior exams, consistent with benignity. No significant masses, calcifications, or other findings are seen in either breast. There has been no significant interval change. IMPRESSION: There is no mammographic evidence of malignancy. A 1 year screening mammogram is recommended. This exam was interpreted at Station ID: [id number]. NOTE: For mammograms, a report in lay terms will be sent to the patient. Approximately 15% of breast malignancies will not be visualized mammographically. In the management of a palpable breast mass, a negative mammogram must not discourage biopsy of a clinically suspicious lesion. Electronically Signed By: Reggie Campbell M.D. ecl/:05/06/2018 20:43:15 letter sent: Normal Exam ACR BI-RADS Category 2: Benign Finding(s) [id number]
== END ==
PROVIDERS: PCP Family Medicine; Visit Provider Family Medicine
DX: Z12.31 Encounter for screening mammogram for malignant neoplasm of breast (principal)
CPT/HCPCS: 77063; 77067

== ENCOUNTER → 2018-05-10 11:15 | Outpatient (CLI) | payer OTHER, SELFPAY ==
--- NOTE | 2018-05-10 | DI.RAD.S_ITS ---
PROCEDURE: XR SACROILIAC JOINT MIN 3V INDICATIONS: PAIN TECHNIQUE: 3 views of the sacroiliac joints were acquired. COMPARISON: None. FINDINGS: Bones: Osteoarthritic changes involving left sacroiliac joint is seen with mild joint space narrowing and subchondral sclerosis. No bony erosions or ankylosis. No suspicious bony lesions. No fractures. Soft tissues: Overlying bowel gas pattern is normal. No suspicious soft tissue densities. 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 No bony erosion or ankylosis. Normal appearing right sacroiliac joint. Dictated by: Richar Lacey M.D. on 05/10/2018 at 13:30 Approved by: Richar Lacey M.D. on 05/10/2018 at 13:32
--- NOTE | 2018-05-10 | DI.RAD.S_ITS ---
PROCEDURE: XR LUMBAR SPINE 2-3V INDICATIONS: RT SIDE LUMBAR PAIN W/RADICULOPATHY CHRONIC TECHNIQUE: 3 views of the lumbar spine were acquired. COMPARISON: [facility], , -SPINE 2-3 VIEWS, 05/26/2017, 7:09. FINDINGS: Bones: 5 [id number] vertebrae are present. There is normal bony alignment. Degenerative endplate changes are noted throughout lower thoracic spine and lumbar spine not significantly changed from previous study. No vertebral body compression fractures. No suspicious bony lesions. Soft tissues: Overlying bowel gas pattern is normal. No suspicious soft tissue calcifications. IMPRESSION: Mild degenerative disc disease throughout lumbar spine. No compression fracture or spondylolisthesis. Dictated by: Richar Lacey M.D. on 05/10/2018 at 13:29 Approved by: Richar Lacey M.D. on 05/10/2018 at 13:30
== END ==
PROVIDERS: PCP Family Medicine; Visit Provider Nurse Practitioner Family
DX: M51.16 Intervertebral disc disorders with radiculopathy, lumbar region (principal)
CPT/HCPCS: 72100; 72202

== ENCOUNTER → 2018-10-29 13:43 | Outpatient (CLI) | payer OTHER, SELFPAY | DX: Z23 Encounter for immunization (principal) | CPT/HCPCS: 90471; 90686 ==

== ENCOUNTER → 2019-07-31 12:34 | Outpatient (CLI) | payer OTHER, SELFPAY ==
--- NOTE | 2019-07-31 12:36 | DI.MG.S_ITS ---
BILATERAL DIGITAL SCREENING MAMMOGRAM 3D/2D WITH CAD: 07/31/2019 CLINICAL: Routine screening. Comparison is made to exams dated: 05/06/2018 mammogram, 05/04/2017 mammogram, and 05/01/2016 mammogram - [facility]. There are scattered fibroglandular elements in both breasts. Current study was also evaluated with a Computer Aided Detection (CAD) system. There is a benign mass in the left breast. No significant masses, calcifications, or other findings are seen in either breast. There has been no significant interval change. IMPRESSION: There is no mammographic evidence of malignancy. A 1 year screening mammogram is recommended. This exam was interpreted at Station ID: [id number]. NOTE: For mammograms, a report in lay terms will be sent to the patient. Approximately 15% of breast malignancies will not be visualized mammographically. In the management of a palpable breast mass, a negative mammogram must not discourage biopsy of a clinically suspicious lesion. Electronically Signed By: Aguilar [email or web address]/[email or web address]:07/31/2019 13:37:07 letter sent: Normal Exam ACR BI-RADS Category 2: Benign Finding(s) [id number]
== END ==
PROVIDERS: PCP Internal Medicine; Referring Provider Internal Medicine; Visit Provider Internal Medicine
DX: Z12.31 Encounter for screening mammogram for malignant neoplasm of breast (principal)
CPT/HCPCS: 77063; 77067

== ENCOUNTER → 2019-09-30 13:26 | Outpatient (CLI) | payer OTHER, SELFPAY ==
[2019-10-01 16:35] LABS: COVID19 Sendout Not Detected (Not Detect)
== END ==
PROVIDERS: PCP Internal Medicine; Visit Provider Physician Assistant
DX: Z11.59 Encounter for screening for other viral diseases (principal)
CPT/HCPCS: 87635

== ENCOUNTER 2019-10-03 14:36 | Day surgery (SDC) | payer OTHER, SELFPAY ==
--- NOTE | 2019-10-03 12:05 | PM.HP.1 ---
History of Present Illness History of Present Illness Date Patient Seen: 10/03/19 Chief complaint: SDC Narrative: 49 Years Old Female seen today for consideration of a screening colonoscopy. There have been no lower GI symptoms suggesting disease such as change in bowel habits, bleeding, abdominal pain or anemia. There's been no family history of colon cancer or colon polyps. Overall health issues have been stable, including no major cardiac events for at least 6 weeks. Current Medications: 1) Lisinopril 5 Mg Oral Tablet (Lisinopril) .... Take 1 tablet by mouth once a day for blood pressure control. 2) Metformin Hcl 1000 Mg Oral Tablet (Metformin Hcl) .... Take one tablet twice a day for diabetes 3) Meloxicam 15 Mg Oral Tablet (Meloxicam) .... Take 1/2 tablet once a day as needed for joint pain 4) Crowdasaurus Finepoint Lancets (Lancets) .... Use to check blood sugar once a day 5) [employer]aurus Ultra Blue in Vitro Strip (Glucose Blood) .... use once daily for diabetes 6) [employer]aurus Ultra 2 W/device Kit (Blood Glucose Monitoring Suppl) .... Use as directed, for diabetes management 7) Aspirin Ec 81 Mg Oral Tablet Delayed Release (Aspirin) .... Take one daily to reduce cardiovascular risk 8) Zomig 5 Mg Oral Tablet (Zolmitriptan) .... Take 1 at headache onset; may repeat after 2 hours; max 2 doses in 24 hours. 9) Imitrex 100 Mg Oral Tablet (Sumatriptan Succinate) .... Take 1 tablet by mouth at start of headache. May repeat in 2 hours. Maximum 200 mg per 24 hours. 10) Imitrex Statdose System 6 Mg/0.5ml Subcutaneous Solution Auto-Injector (Sumatriptan Succinate) .... 1 subcu at start of headache. May repeat in 2 hours. Max 12 mg in 24 hours. 11) Triamcinolone Acetonide 0.5 % External Cream (Triamcinolone Acetonide) .... Apply thin layer to affected areas once daily. Allergies: No Known Drug Allergies Past Medical History: Psoriasis; 2015 depression; 2015 acne, mild; 2015 Hypertension SEBORRHEIC KERATOSIS Diabetes mellitus type II Obesity BMI 37-37.9 adult Low back pain Migraine w/out aura Past Surgical History: Carpal Tunnel Release, bilateral Shoulder surgery 2008 Bilateral tubal ligation Family History: Reviewed history from 03/18/2015 and no changes required: Father: Diabetes Mother: high blood pressure Siblings: Social History: Reviewed history from 08/15/2018 and no changes required: Marital Status: Children: none Occupation: [employer] Household Members: Bebe (1971) Education: 14 Alcohol drinks/day: 0 >5/day in last 3 mos: no Caffeine use/day: 1 Type of Exercise: yard work and housekeeping Exercise Times per Week: daily Guns in home: no Dental Care w/in 6 mos.: yes Sun Exposure: occasionally Fall Risk: no falls in past year Seat Belt Use: yes Smoking Status: never smoker Passive Smoke Exposure: no Drug Use: never HIV High Risk Behavior: no Patient History Medical History (Updated 10/03/19 @ 15:42 by Tiffany Owen RN) Acne, mild (Acute) Depression (Acute) Diabetes (Acute) Hypertension (Acute) Low back pain (Acute) Migraine without aura (Acute) Obesity (BMI 35.0-39.9 without comorbidity) (Acute) Psoriasis (Acute) Seborrheic keratosis (Acute) Surgical History (Updated 10/03/19 @ 15:42 by Tiffany Owen RN) H/O shoulder surgery (Acute) History of bilateral tubal ligation (Acute) History of carpal tunnel release of both wrists (Acute) History of carpal tunnel repair Meds Home Medications and Allergies Home Medications Medication Instructions Recorded Confirmed Type Imitrex 100 mg PO 10/03/19 History aspirin [Aspirin Low Dose] 81 mg PO DAILY 10/03/19 10/03/19 History meloxicam 7.5 mg PO DAILY PRN 10/03/19 10/03/19 History metformin 1,000 mg PO BID 10/03/19 10/03/19 History sumatriptan succinate [Imitrex mg SUBCUT PRN 10/03/19 History STATdose Pen] triamcinolone acetonide 1 applic TOPICAL DAILY 10/03/19 10/03/19 History Allergies Allergy/AdvReac Type Severity Reaction Status Date / Time No Known Drug Allergies Allergy Verified 10/03/19 15:15 Review of Systems Review of Systems ROS: Yes All systems reviewed with the patient and are negative except as otherwise documented Exam Narrative Exam Narrative: GENERAL: Alert and oriented, appearing stated age and in no acute distress. HEENT: Head normocephalic/atraumatic. Pupils equal, round, and reactive to light and accomodation. Extraocular muscles intact. Tympanic membranes clear. Nasal mucosa moist, septum midline. Oral mucosa moist, no lesions. Neck soft and supple, no lymphadenopathy. LUNGS: Clear to ausculation bilaterally, no wheezes, rhonchi or rales. CV: Normal S1 and S2 with regular rate and rhythm, no audible murmurs, rubs or gallops. ABDOMEN: Soft, non-tender, non-distended, no organomegaly. Positive bowel sounds. EXTREMITIES: No clubbing, cyanosis, or edema. NEURO: Cranial nerves II through XII grossly intact, no focal deficits. PSYCH: Alert and oriented x 3. SKIN: No concerning lesions. Assessment & Plan Assessment & Plan narrative: 1. Screening for colon cancer Plan for colonoscopy. The nature and character of the procedure as well as anticipated results were discussed. The possibility of not completing the procedure was also discussed. Possible complications including aspiration pneumonia, bleeding, perforation and reaction to medications either for sedation or preparation and missed lesions were discussed. Questions were answered and proceeding to the colonoscopy was elected. Informed consent signed. I sincerely appreciate the referral allowing me to participate in this patient's care. Please contact me with any questions or concerns.
--- NOTE | 2019-10-03 12:06 | PM.OP.ENDO ---
Operative Date/Time/Diagnoses Date of procedure: 10/03/19 Procedure Notes SCOAP/Timeout: 4:01 p.m. Procedure in detail: ENDOSCOPIST: Fernanda Wiggins MD Sedation RN: Jero Smith RN Sedation start time: 4:02 p.m. Sedation end time: 4:34 p.m. PROCEDURE: Colonoscopy INDICATIONS: 1. Screening for colon cancer MEDICATION: Levsin 0.125 mg sublingual, incremental doses of Versed and fentanyl until appropriate level sedation achieved. ASA CLASS: 2 CECAL WITHDRAWAL TIME: 8 minutes COMPLICATIONS: None. EXTENT OF PROCEDURE: Cecum. QUALITY OF PREP: Good with portions of liquid stool. PROCEDURE: Prior to insertion of the colonoscope, a digital rectal examination was accomplished with circumferential palpation of the distal rectal mucosa without significant findings being noted. The high-definition colonoscope was passed into the rectum in the usual fashion and advanced over to the cecum without difficulty. The ileocecal valve, appendiceal stoma, and medial wall all could be inspected and no abnormalities were seen. ASCENDING COLON: As the colonoscope was withdrawn, care was taken to expose and inspect the haustral folds and no abnormalities were seen. HEPATIC FLEXURE: Normal, no polyps, diverticula or other abnormalities. TRANSVERSE COLON: Normal, no polyps, diverticula or other abnormalities. DESCENDING COLON: Normal, no polyps, diverticula or other abnormalities. SIGMOID COLON: Normal, no polyps, diverticula or other abnormalities. RECTUM: Normal. J maneuver was produced. There was no significant perianal disease. The J maneuver was broken. The remainder of the rectum was inspected and there was no external hemorrhoid disease. The scope was withdrawn. IMPRESSION: 1. Normal colonoscopy PLAN: 1. Repeat colonoscopy in 10 years. The possibility of a missed lesion including a malignancy has been discussed with the patient previously. Potential alarm symptoms have been discussed and should be reported immediately.
[2019-10-03] MEDS: HYOSCYAMINE 0.125 MG TABLET PO (15:20)
[2019-10-03] MEDS: LACTATED RINGERS 1,000 ML 200 ML IV (15:20)
[2019-10-03 15:30] VITALS: BP 127/81; PULSE 90; RESP 16; TEMP 36.6; O2SAT 99; BMI 38.0
[2019-10-03] MEDS: fentaNYL 250 MCG/5 ML INJ IV (16:02)
[2019-10-03] MEDS: MIDAZOLAM 5 MG/5 ML VIAL IV (16:03)
[2019-10-03 16:43] VITALS: BP 123/75; PULSE 83; RESP 22; TEMP 36.2; O2SAT 96
[2019-10-03 16:48] VITALS: BP 115/61; PULSE 84; RESP 18; TEMP 36.2; O2SAT 97
[2019-10-03 16:53] VITALS: BP 113/52; PULSE 80; RESP 16; TEMP 36.2; O2SAT 98
[2019-10-03 16:58] VITALS: BP 118/54; PULSE 73; RESP 19; TEMP 36.4; O2SAT 98
== END 2019-10-03 17:12 | disposition home or self-care (01) ==
PROVIDERS: PCP Internal Medicine; Referring Provider Student in an Organized Health Care Education/Training Program; Visit Provider Student in an Organized Health Care Education/Training Program
PROC: 0DJD8ZZ Inspection of Lower Intestinal Tract, Via Natural or Artificial Opening Endoscopic (ICD-10-PCS; CPT 45378; principal; 2019-10-03 16:00)
DX: Z12.11 Encounter for screening for malignant neoplasm of colon (principal)
CPT/HCPCS: 45378; J2250; J3010

== ENCOUNTER 2019-10-27 16:51 | Emergency (ER) | payer OTHER, SELFPAY ==
[2019-10-27 16:59] VITALS: BP 165/68; PULSE 92; RESP 16; O2SAT 99; BMI 33.6
[2019-10-27 17:31] LABS: Alanine Aminotransferase 16 IU/L (<35)
[2019-10-27] MEDS: TET,DIPH,PERTUSS(ACELL),VAC/PF 0.5 ML SYRINGE IM (17:43)
[2019-10-27] MEDS: BACITRACIN OINT 0.9 GM PCKT 1 APPLIC TOP (17:47)
[2019-10-27 18:16] LABS: Hepatitis B Surface Antigen NEGATIVE s/c (NEGATIVE)
[2019-10-27 18:49] LABS: HIV 1 & 2 Ab/Ag 4th Gen Combo NEGATIVE (NEGATIVE); Hep C Virus Ab w/Reflex Quant NEGATIVE s/c (NEGATIVE)
--- NOTE | 2019-10-27 21:14 | ED.GENADULT ---
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 Patient reports she was emptying out the trash and there were 3 long sharp needles that was used for spine surgery wrapped in white tape punctured the affected finger tip. Patient reports numbness to affected finger tip and pain. Patient was employed since August last year and she is pretty sure received hepatitis A/B series. She is not sure about last tetanus immunization. The source patient of the needles that were used are known who was admitted to the hospital. 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 Hepatitis-B antibody was drawn in April 2019 in EHR showing >999 (possibly post vaccination verification). Related Data Home Medications Medication Instructions Recorded Confirmed Imitrex 100 mg PO 10/03/19 aspirin [Aspirin Low Dose] 81 mg PO DAILY 10/03/19 10/03/19 meloxicam 7.5 mg PO DAILY PRN 10/03/19 10/03/19 metformin 1,000 mg PO BID 10/03/19 10/03/19 sumatriptan succinate [Imitrex mg SUBCUT PRN 10/03/19 STATdose Pen] triamcinolone acetonide 1 applic TOPICAL DAILY 10/03/19 10/03/19 Allergies Allergy/AdvReac Type Severity Reaction Status Date / Time No Known Drug Allergies Allergy Verified 10/27/19 17:05 Review of Systems <Gerald ForrestDALTON - Last Filed: 10/27/19 21:49> Review of Systems Narrative: General: Denies fever, chills, fatigue, malaise, sweats. HEENT: Denies sinus pain, ear pain, sore throat, difficulty swallowing, dizziness. Respiratory: Denies dyspnea, cough, wheezing, hemoptysis, sputum. Cardiovascular: Denies chest pain, palpitations, orthopnea, edema. Gastrointestinal: Denies nausea, vomiting, abdominal pain, diarrhea, constipation, melena. : Denies dysuria, frequency, incontinence, hematuria, urinary retention. Musculoskeletal: see HPI Skin: See HPI Neurologic: Denies weakness, headache, numbness, change in speech, confusion, seizures, incoordination. Patient History <DALTON Cummings - Last Filed: 10/27/19 21:49> Medical History Acne, mild (Acute) Depression (Acute) Diabetes (Acute) Hypertension (Acute) Low back pain (Acute) Migraine without aura (Acute) Obesity (BMI 35.0-39.9 without comorbidity) (Acute) Psoriasis (Acute) Seborrheic keratosis (Acute) Surgical History H/O shoulder surgery (Acute) History of bilateral tubal ligation (Acute) History of carpal tunnel release of both wrists (Acute) History of carpal tunnel repair Social History household members: spouse Smoking Status: Never smoker Smoking Status: Never smoker alcohol intake frequency: holidays/special occasions only Substance Use Type: does not use and prescription drug Exam <DALTON Cummings - Last Filed: 10/27/19 21:49> Narrative Exam Narrative: General appearance: well developed, well nourished, in no acute distress. Head: normocephalic, atraumatic, no scalp lesions, non-tender. ENT: Hearing grossly intact. Nose without bleeding, purulent discharge. Airway patent. Neck/Thyroid: neck supple, full range of motion, no visible masses or meningeal signs. No JVD, non-tender without lymphadenopathy. Skin: one erythematous puncture wound appreciated in right index finger pad. no suspicious rashes, lesions over visible areas. Warm and dry and appropriate color for ethnicity. Heart: no clubbing, no cyanosis, no edema. Lungs: Breathing even and unlabored. No stridor. No accessory muscles used. Able to speak in full sentences. Chest: normal shape and expansion. Abdomen: non-obese, non-distended. Neurologic: alert and oriented. 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 Psych: good eye contact, normal affect. Initial Vital Signs Initial Vital Signs: Vital Signs Pulse Rate 92 H 10/27/19 16:59 Respiratory Rate 16 10/27/19 16:59 Blood Pressure 165/68 H 10/27/19 16:59 Pulse Oximetry 99 10/27/19 16:59 Extrem Right upper extremity: hand Details: normal to inspection, neuromotor exam normal, neurosensory exam normal, tenderness Location: of the 2nd digit Location: at the distal phalanx (pad), vascular exam Details: radial pulse present and normal capillary refill, normal ROM of fingers, no swelling and puncture wound (One red puncture spot appreciated in index finger pad); no unusual warmth and no foreign bodies <Carole Leung DO - Last Filed: 11/02/19 07:33> Initial Vital Signs Initial Vital Signs: Vital Signs Pulse Rate 92 H 10/27/19 16:59 Respiratory Rate 16 10/27/19 16:59 Blood Pressure 165/68 H 10/27/19 16:59 Pulse Oximetry 99 10/27/19 16:59 Scores <DALTON Cummings - Last Filed: 10/27/19 21:49> GCS Rip coma scale eye opening: Spontaneous [place] coma scale verbal response: Orientated [place] coma scale motor response: Obey commands Rip coma scale total score: 15 Course <DALTON Cummings - Last Filed: 10/27/19 21:49> Orders Ordered: Discontinued Medications Bacitracin (Bacitracin) 1 applic TOP NOW ONE Stop: 10/27/19 17:42 Last Admin: 10/27/19 17:47 Dose: 1 applic Documented by: CATE Diphtheria/Tetanus/Acell Pertussis (Adacel) 0.5 ml IM .ONCE ONE Stop: 10/27/19 17:39 Last Admin: 10/27/19 17:43 Dose: 0.5 ml Documented by: CATE Vital Signs Vital signs: Vital Signs - 8 hr 10/27/19 16:59 Pulse Rate 92 H Respiratory Rate 16 Blood Pressure 165/68 H Pulse Oximetry 99 <Carole Leung DO - Last Filed: 11/02/19 07:33> Orders Ordered: Discontinued Medications Bacitracin (Bacitracin) 1 applic TOP NOW ONE Stop: 10/27/19 17:42 Last Admin: 10/27/19 17:47 Dose: 1 applic Documented by: CATE Diphtheria/Tetanus/Acell Pertussis (Adacel) 0.5 ml IM .ONCE ONE Stop: 10/27/19 17:39 Last Admin: 10/27/19 17:43 Dose: 0.5 ml Documented by: CATE Vital Signs Vital signs: Vital Signs - 8 hr 10/27/19 16:59 Pulse Rate 92 H Respiratory Rate 16 Blood Pressure 165/68 H Pulse Oximetry 99 Medical Decision Making <Gerald KrugerDALTON Valle - Last Filed: 10/27/19 21:49> Differential Diagnosis Differential Diagnosis: Needlestick, accidental exposure to body fluid Medical Records Medical records reviewed: Yes I reviewed the patient's medical records. Lab Data Lab results reviewed: Yes I reviewed the patient's lab results. 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 The known source for the exposure is a low risk according to EHR. Post exposure labs were drawn as a baseline. We discussed risk and benefit on starting post body fluid exposure medications with patient and she deferred at this time. ALT is 16. Negative hep B antigen, negative hep C antibody, HIV 1 and 2 antibody results were negative as well. Hep B antibody test result pending. Patient advised to monitor for signs and symptoms for infection on affected finger. Advised to follow up with employee health and provided contact phone number. Require documentation was initiated and send it to the employee health department. Return precautions were discussed with patient and patient verbalized understanding in agreement with the treatment plan. Patient advised to use precaution during sexual encounter until this was cleared by Employee Health (HIV test was pending when the patient was discharged from ED). <Carole Leung DO - Last Filed: 11/02/19 07:33> Lab Data Labs: Lab Results 10/27/19 10/27/19 10/27/19 Range/Units 17:11 17:11 17:11 ALT 16 (<35) IU/L Hep Bs Antigen Negative (NEGATIVE) s/c Hep Bs Antibody Reactive (.) Hepatitis C Antibody Negative (NEGATIVE) s/c HIV 1&2 Ab/P24 Ag 4thGn Negative (NEGATIVE) Discharge Plan Departure Patient Disposition: Home Clinical Impression: Needlestick injury accident Discharge Date/Time: 10/27/19 18:49 Instructions: DI for Accidental Exposure to Body Fluids Activity Restrictions/Additional Instructions: You have been diagnosed with [accidental needlestick and exposure to body fluid to known source at work]. What to do: *Take your medications as directed. No new medications at this time. *Follow up with employee health, call for an appointment. [phone] if you do not hear from them next couple of days. Let them know you were seen in the ED and that we asked you to be seen in follow up. *Return to ED if you have any new, worsening, or concerning symptoms, such as [chest pain, breathing difficulty, abdominal pain, nausea vomiting, jaundice, fever, or any acute concerns]. Prescriptions: No Action meloxicam 15 mg Tablet 7.5 mg PO DAILY PRN (Reason: Joint Pain) RF: 0 aspirin [Aspirin Low Dose] 81 mg Tablet,Delayed Release (Dr/Ec) 81 mg PO DAILY RF: 0 triamcinolone acetonide 0.025 % Cream 1 applic TOPICAL DAILY RF: 0 metformin 1,000 mg Tablet 1,000 mg PO BID RF: 0 sumatriptan succinate [Imitrex STATdose Pen] 6 mg/0.5 mL Pen Injector SUBCUT PRN (Reason: headaches) RF: 0 Imitrex 100 mg PO RF: 0 Referrals: Corinna Lynn ARNP [Primary Care Provider] - <Carole Leung DO - Last Filed: 11/02/19 07:33> Cosign ED Attending Cossoteroature Attestation: I was immediately available in the department for consultation. Documentation has been reviewed. I agree with assessment and plan.
[2019-10-28 07:35] LABS: Hepatitis B Surf Ab Qualitativ Reactive (.)
== END 2019-10-27 18:49 | disposition home or self-care (01) ==
PROVIDERS: Emergency Provider Nurse Practitioner Family; PCP Internal Medicine
DX: Z77.21 Contact with and (suspected) exposure to potentially hazardous body fluids (principal); W46.0XXA Contact with hypodermic needle, initial encounter; Z23 Encounter for immunization; Y99.0 Civilian activity done for income or pay
CPT/HCPCS: 36415; 90471; 99283; 90715

== ENCOUNTER → 2020-02-11 08:56 | Outpatient (CLI) | payer OTHER, SELFPAY ==
[2020-02-11] MEDS: COVID-19 VACC(MODERNA-1)/PF 100 MCG/0.5 ML VIAL IM (09:03)
== END ==
PROVIDERS: PCP Internal Medicine; Visit Provider Internal Medicine
DX: Z23 Encounter for immunization (principal)
CPT/HCPCS: 0011A; 91301

== ENCOUNTER → 2020-03-12 11:57 | Outpatient (CLI) | payer OTHER, SELFPAY ==
[2020-03-12] MEDS: COVID-19 VACC #2, MRNA(MOD) 100 MCG/0.5 ML VIAL IM (12:03)
== END ==
PROVIDERS: PCP Internal Medicine; Visit Provider Internal Medicine
DX: Z23 Encounter for immunization (principal)
CPT/HCPCS: 0012A; 91301

== ENCOUNTER 2020-06-07 19:04 | Emergency (ER) | payer OTHER, SELFPAY ==
[2020-06-07 19:08] VITALS: BP 140/75; PULSE 75; RESP 16; TEMP 36.7; O2SAT 99
--- NOTE | 2020-06-07 19:17 | ED_ITS ---
HPI - Wound/Laceration General Chief Complaint: Wound/Laceration Stated Complaint: FALL RIGHT KNEE INJURY AND HANDS Time Seen by Provider: 06/07/20 19:10 Source: patient Mode of arrival: Ambulatory Limitations: no limitations History of Present Illness HPI narrative: 50-year-old female nonsmoker with noncontributory medical history presents with a work related fall and right knee injury. She states she was in her normal state of health and denies any dizziness, weakness or lightheadedness. She had no chest pain or shortness of breath and denies any prodromal symptoms. She states that she was walking and slipped on a slick substance on the floor and fell forward, landing solidly on her right knee. She denies any head neck or back pain. She had no loss of consciousness and has full recall. She does state that she has a minimal amount of pain in the palms of her hands but nothing significant. She was able to ambulate in without significant difficulty but suffered a superficial abrasion to her right knee Onset (ago): minute(s) Extremity Location: Right: knee Body four view annotation: 1. Place: work Patient tetanus UTD: Yes Context: accidental Associated symptoms: none Treatments prior to arrival: cold therapy and bandage Related Data Home Medications Medication Instructions Recorded Confirmed Imitrex 100 mg PO 10/03/19 aspirin [Aspirin Low Dose] 81 mg PO DAILY 10/03/19 10/03/19 meloxicam 7.5 mg PO DAILY PRN 10/03/19 10/03/19 metformin 1,000 mg PO BID 10/03/19 10/03/19 sumatriptan succinate [Imitrex mg SUBCUT PRN 10/03/19 STATdose Pen] triamcinolone acetonide 1 applic TOPICAL DAILY 10/03/19 10/03/19 Allergies Allergy/AdvReac Type Severity Reaction Status Date / Time No Known Drug Allergies Allergy Verified 10/27/19 17:05 Review of Systems Constitutional Constitutional: Denies chills, Denies fatigue, Denies fever(s), Denies frequent falls, Denies lethargy and Denies weakness Eyes Eyes: Denies change in vision, Denies eye discharge, Denies irritation and Denies loss of vision ENT Ears, Nose, Mouth, and Throat: Denies change in voice, Denies dizziness, Denies neck pain, Denies sore throat and Denies throat swelling Cardiovascular Cardiovascular: Denies chest pain, Denies irregular heart rhythm, Denies lightheadedness, Denies palpitations, Denies dyspnea, Denies dyspnea on exertion and Denies orthopnea Respiratory Respiratory: Denies cough, Denies dyspnea, Denies dyspnea on exertion and Denies wheezing Gastrointestinal Gastrointestinal: Denies abdominal pain, Denies change in bowel habits, Denies diarrhea, Denies nausea and Denies vomiting Musculoskeletal Musculoskeletal: Reports arthralgias, Denies neck pain and Denies numbness Integumentary/Breasts Skin/Breast: Denies pruritus, Denies erythema, Denies rash and Reports wounds Neurologic Neurologic: Denies behavioral changes, Denies confusion, Denies dizziness, Denies frequent falls, Denies loss of vision, Denies numbness and Denies weakness Psychiatric Psychiatric: Denies anxiety, Denies behavioral changes, Denies confusion, Denies depression, Denies homicidal ideation and Denies suicidal ideation Endocrine Endocrine: Denies fatigue, Denies flushing and Denies palpitations Hematologic/Lymphatic Hematologic/Lymphatic: Denies easy bruising Allergic/Immunologic Allergic/Immunologic: Denies urticaria, Denies throat swelling and Denies wheezing Patient History Medical History Acne, mild Depression Diabetes Hypertension Low back pain Migraine without aura Obesity (BMI 35.0-39.9 without comorbidity) Psoriasis Seborrheic keratosis Surgical History H/O shoulder surgery History of bilateral tubal ligation History of carpal tunnel release of both wrists History of carpal tunnel repair Social History household members: spouse Smoking Status: Never smoker Smoking Status: Never smoker alcohol intake frequency: holidays/special occasions only Substance Use Type: does not use and prescription drug Exam Narrative Exam Narrative: GENERAL: [50] year old patient appears stated age. Well- nourished, well-developed patient, in mild distress. GCS 15 HEAD: Atraumatic. Normocephalic. EYES: Pupils equal round and reactive. Extraocular motions intact. No scleral icterus. No injection or drainage. ENT: Nose without bleeding, purulent drainage. Throat without erythema, to nsillar hypertrophy or exudate. Airway patent. NECK: Trachea midline. Non tender CARDIOVASCULAR: Regular rate and rhythm without murmurs, gallops, or rubs. RESPIRATORY: Clear to auscultation. Breath sounds equal bilaterally. No wheezes, rales, or rhonchi. GASTROINTESTINAL: Abdomen soft, non-tender, nondistended. EXTREMITIES: Full painless range of motion of the right knee with a very superficial abrasion overlying her patella. No bleeding, no foreign body, no joint effusion or ligamentous instability. She has no bony point tenderness and a non antalgic gait. Very superficial abrasions noted on the palms, no wound care needed, full, painless range of motion at bilateral wrists BACK: Nontender without deformity or crepitance. No flank tenderness. NEURO: AOx3. SKIN: No rash or erythema of visible areas Initial Vital Signs Initial Vital Signs: Vital Signs Temperature 98.0 F 06/07/20 19:08 Pulse Rate 75 06/07/20 19:08 Respiratory Rate 16 06/07/20 19:08 Blood Pressure 140/75 06/07/20 19:08 Pulse Oximetry 99 06/07/20 19:08 Course Orders Ordered: Discontinued Medications Bacitracin (Bacitracin Oint 0.9 Gm Pckt) 1 applic TOP NOW ONE Stop: 06/07/20 19:22 Vital Signs Vital signs: Vital Signs - 8 hr 06/07/20 19:08 Temperature 98.0 F Pulse Rate 75 Respiratory Rate 16 Blood Pressure 140/75 Pulse Oximetry 99 MDM - Wound/Laceration MDM Narrative Medical decision making narrative: Patient with a very minor injury as a consequence of a ground level fall while at work. She has full recall denies any head neck or back pain. She walked in without any difficulty and has only a superficial abrasion on her knee. No imaging is necessary, no wound closure required. Return precautions given and questions answered to her apparent satis faction Discharge Plan Departure Patient Disposition: Home Clinical Impression: Abrasion Instructions: DI for Abrasion Activity Restrictions/Additional Instructions: *You have been diagnosed with [work related fall with right knee abrasion] *What to do: * continue to take medications as directed. Consider a topical antibiotic ointment for the abrasion on your right knee *Follow up with your primary care provider in 2-3 days, call for an appointment. Let them know you were seen in the Emergency Department and that we ask that you be seen in follow up *Return to ER if you should have any new, worsening or concerning symptoms, such as [increasing pain, fever greater than 101 F, shaking chills or other bothersome symptom] Prescriptions: No Action meloxicam 15 mg Tablet 7.5 mg PO DAILY PRN (Reason: Joint Pain) RF: 0 aspirin [Aspirin Low Dose] 81 mg Tablet,Delayed Release (Dr/Ec) 81 mg PO DAILY RF: 0 triamcinolone acetonide 0.025 % Cream 1 applic TOPICAL DAILY RF: 0 metformin 1,000 mg Tablet 1,000 mg PO BID RF: 0 sumatriptan succinate [Imitrex STATdose Pen] 6 mg/0.5 mL Pen Injector SUBCUT PRN (Reason: headaches) RF: 0 Imitrex 100 mg PO RF: 0 Referrals: Corinna Lynn ARNP [Primary Care Provider] -
== END 2020-06-07 19:31 | disposition home or self-care (01) ==
PROVIDERS: Emergency Provider Emergency Medicine; PCP Internal Medicine
DX: S80.211A Abrasion, right knee, initial encounter (principal); W19.XXXA Unspecified fall, initial encounter
CPT/HCPCS: 99281; 99282

== ENCOUNTER 2020-06-09 07:50 | Emergency (ER) | payer OTHER, SELFPAY ==
--- NOTE | 2020-06-09 07:53 | ED_ITS ---
HPI - General Adult General Chief complaint: Back Pain/Injury Stated complaint: Moderate pain across lower back injury /3 Time Seen by Provider: 06/09/20 07:51 Source: patient Mode of arrival: Ambulatory Limitations: no limitations History of Present Illness HPI narrative: Patient is a 50-year-old female who approximately 48 hours ago slipped and fell while at work and fell forward landing on both of her knees and her hands. She was seen here in the emergency department afterwards for right knee abrasion was discharged home. Starting yesterday she started having pain in her right hip. She is still ambulatory. Has been taking anti- inflammatories. Related Data Home Medications Medication Instructions Recorded Confirmed Imitrex 100 mg PO 10/03/19 aspirin [Aspirin Low Dose] 81 mg PO DAILY 10/03/19 10/03/19 meloxicam 7.5 mg PO DAILY PRN 10/03/19 10/03/19 metformin 1,000 mg PO BID 10/03/19 10/03/19 sumatriptan succinate [Imitrex mg SUBCUT PRN 10/03/19 STATdose Pen] triamcinolone acetonide 1 applic TOPICAL DAILY 10/03/19 10/03/19 Allergies Allergy/AdvReac Type Severity Reaction Status Date / Time No Known Drug Allergies Allergy Verified 10/27/19 17:05 Review of Systems Constitutional Constitutional: Denies fever(s) and Denies headache(s) Eyes Eyes: Denies change in vision ENT Ears, Nose, Mouth, and Throat: Denies headache(s) and Denies sore throat Cardiovascular Cardiovascular: Denies dyspnea Respiratory Respiratory: Denies dyspnea Gastrointestinal Gastrointestinal: Denies abdominal pain Musculoskeletal Comments: Right hip pain Integumentary/Breasts Skin/Breast: Denies rash Neurologic Neurologic: Denies behavioral changes and Denies headache(s) Psychiatric Psychiatric: Denies behavioral changes Hematologic/Lymphatic On Anticoagulants: No Allergic/Immunologic Allergic/Immunologic: Denies urticaria Patient History Medical History (Updated 06/09/20 @ 08:19 by Nahun Krishnan DO) Acne, mild Depression Diabetes Hypertension Low back pain Migraine without aura Obesity (BMI 35.0-39.9 without comorbidity) Psoriasis Seborrheic keratosis Surgical History H/O shoulder surgery History of bilateral tubal ligation History of carpal tunnel release of both wrists History of carpal tunnel repair Social History household members: spouse Smoking Status: Never smoker Smoking Status: Never smoker alcohol intake frequency: holidays/special occasions only Substance Use Type: does not use and prescription drug Exam Initial Vital Signs Initial Vital Signs: Vital Signs Temperature 97.6 F 06/09/20 08:02 Pulse Rate 86 06/09/20 08:02 Respiratory Rate 16 06/09/20 08:02 Blood Pressure 144/84 H 06/09/20 08:02 Pulse Oximetry 100 06/09/20 08:02 Const General: cooperative and comfortable Limitations: mental status not altered HENMT Head: normal to inspection and normocephalic Resp Effort & Inspection: normal respiratory effort Cardio Rate: regular rate Back/Spine/Pelvis Other: Tenderness to palpation over the right sacroiliac joint. Skin Other: Abrasion to right knee Neuro General: patient alert, patient awake and patient oriented x3 Cognition: normal cognition Speech: speech normal Extrem Other: Full range of motion of right knee and right hip Psych Appearance: grossly normal and well kempt Course Vital Signs Vital signs: Vital Signs - 8 hr 06/09/20 08:02 Temperature 97.6 F Pulse Rate 86 Respiratory Rate 16 Blood Pressure 144/84 H Pulse Oximetry 100 Medical Decision Making MDM Narrative Medical decision making narrative: Patient does have tenderness to palpation specifically over the right sacroiliac joint. She is still ambulatory. She has no neurologic symptoms. I suspect this is related to her fall a couple days ago. I feel we can hold on any radiologic studies. Have low suspicion for fracture. We did discuss conservative measures to include anti-inflammatories. She is given return precautions. She expressed understanding agreement. Discharge Plan Departure Patient Disposition: Home Clinical Impression: Sacro-iliac pain Instructions: DI for Low Back Pain Activity Restrictions/Additional Instructions: Recommend that you continue with the anti-inflammatories. You have no restrictions on your activities. You can use heat and ice. Contact your primary provider for follow-up. Return to the emergency department for any new or worsening symptoms Prescriptions: No Action meloxicam 15 mg Tablet 7.5 mg PO DAILY PRN (Reason: Joint Pain) RF: 0 aspirin [Aspirin Low Dose] 81 mg Tablet,Delayed Release (Dr/Ec) 81 mg PO DAILY RF: 0 triamcinolone acetonide 0.025 % Cream 1 applic TOPICAL DAILY RF: 0 metformin 1,000 mg Tablet 1,000 mg PO BID RF: 0 sumatriptan succinate [Imitrex STATdose Pen] 6 mg/0.5 mL Pen Injector SUBCUT PRN (Reason: headaches) RF: 0 Imitrex 100 mg PO RF: 0 Referrals: Corinna Lynn ARNP [Primary Care Provider] -
[2020-06-09 08:02] VITALS: BP 144/84; PULSE 86; RESP 16; TEMP 36.4; O2SAT 100
[2020-06-09 08:48] VITALS: BP 125/74; PULSE 75; RESP 16; O2SAT 97
== END 2020-06-09 08:54 | disposition home or self-care (01) ==
LOC: ED 08:01
PROVIDERS: Emergency Provider Emergency Medicine; PCP Internal Medicine
DX: M53.3 Sacrococcygeal disorders, not elsewhere classified (principal); W01.0XXA Fall on same level from slipping, tripping and stumbling without subsequent striking against object, initial encounter; Y99.0 Civilian activity done for income or pay
CPT/HCPCS: 99281

== ENCOUNTER → 2020-09-07 11:17 | Outpatient (CLI) | payer OTHER, SELFPAY ==
--- NOTE | 2020-09-07 | DI.MG.S_ITS ---
BILATERAL DIGITAL SCREENING MAMMOGRAM 3D/2D WITH CAD: 09/07/2020 CLINICAL: Routine screening. Comparison is made to exams dated: 07/31/2019 mammogram, 05/06/2018 mammogram, and 05/04/2017 mammogram - [facility]. There are scattered fibroglandular elements in both breasts. Current study was also evaluated with a Computer Aided Detection (CAD) system. There is a stable benign focal asymmetry in the left breast. No significant masses, calcifications, or other findings are seen in either breast. There has been no significant interval change. IMPRESSION: BENIGN There is no mammographic evidence of malignancy. A 1 year screening mammogram is recommended. This exam was interpreted at Station ID: [id number]. NOTE: For mammograms, a report in lay terms will be sent to the patient. Approximately 15% of breast malignancies will not be visualized mammographically. In the management of a palpable breast mass, a negative mammogram must not discourage biopsy of a clinically suspicious lesion. Electronically Signed By: Adam Anderson acr/bethany:09/07/2020 11:41:23 letter sent: Normal Exam ACR BI-RADS Category 2: Benign Finding(s) 3342F
== END ==
PROVIDERS: PCP Internal Medicine; Referring Provider Internal Medicine; Visit Provider Internal Medicine
DX: Z12.31 Encounter for screening mammogram for malignant neoplasm of breast (principal)
CPT/HCPCS: 77063; 77067

== ENCOUNTER → 2021-09-09 07:57 | Outpatient (CLI) | payer OTHER, SELFPAY ==
--- NOTE | 2021-09-09 | DI.MG.S_ITS ---
BILATERAL DIGITAL SCREENING MAMMOGRAM 3D/2D WITH CAD: 09/09/2021 CLINICAL: Routine screening. Comparison is made to exams dated: 09/07/2020 mammogram, 07/31/2019 mammogram, and 05/06/2018 mammogram - [facility]. There are scattered fibroglandular elements in both breasts. Current study was also evaluated with a Computer Aided Detection (CAD) system. No significant masses, calcifications, or other findings are seen in either breast. There has been no significant interval change. IMPRESSION: NEGATIVE There is no mammographic evidence of malignancy. A 1 year screening mammogram is recommended. Based on the Tyrer Cuzick model (a risk assessment model) the patient's lifetime risk is 10.2% and her 10 year risk is 2.6%. According to the ACR, ACS, and NCCN guidelines, an annual breast MRI exam along with mammogram is recommended if the patient's lifetime risk is 20% or greater. This exam was interpreted at Station ID: [id number]. NOTE: For mammograms, a report in lay terms will be sent to the patient. Approximately 15% of breast malignancies will not be visualized mammographically. In the management of a palpable breast mass, a negative mammogram must not discourage biopsy of a clinically suspicious lesion. Electronically Signed By: Antonio ragsdale/[email or web address]:09/09/2021 08:39:33 letter sent: Normal Exam ACR BI-RADS Category 1: Negative [id number]
== END ==
PROVIDERS: PCP Internal Medicine; Referring Provider Internal Medicine; Visit Provider Internal Medicine
DX: Z12.31 Encounter for screening mammogram for malignant neoplasm of breast (principal)
CPT/HCPCS: 77063; 77067

== ENCOUNTER 2022-08-21 18:13 | Emergency (ER) | payer OTHER, SELFPAY ==
[2022-08-21 18:23] VITALS: BP 141/82; PULSE 100; RESP 18; TEMP 36.7; O2SAT 98; BMI 36.0
[2022-08-21 18:59] LABS: Add Manual Diff / Slide Review NO; Basophils Absolute Auto 100 /uL (0-100); Basophils Percent Auto 0.7 % (0-2); Eosinophils Absolute Auto 100 /uL (0-450); Eosinophils Percent Auto 0.7 % (2-4); Hematocrit 41.9 % (36-46); Hemoglobin 14.2 g/dL (12.0-16.0); Lymphocytes Absolute Auto 2900 /uL (1100-4500); Lymphocytes Percent Auto 29.8 % (25-40); Mean Corpuscular HGB Conc 33.9 % (30-36); Mean Corpuscular Hemoglobin 30.6 PG (26-34); Mean Corpuscular Volume 90.2 fL (80-100); Monocytes Absolute Auto 700 /uL (0-900); Monocytes Percent Auto 6.9 % (3-14); Neutrophils Absolute Auto 6100 /uL (1500-7000); Neutrophils Percent Auto 61.9 % (50-75); Platelet Count 300 X10^3/uL (150-400); Red Blood Cell Count 4.65 X10^6/uL (4.0-5.2); White Blood Cell Count 9.8 X10^3/uL (4.5-11.0)
[2022-08-21 19:08] LABS: Alanine Aminotransferase 19 IU/L (<35); Albumin 4.5 g/dL (3.5-5.0); Albumin Globulin Ratio 1.2 (1.0-2.8); Alkaline Phosphatase 72 U/L (38-126); Aspartate Aminotransferase 23 IU/L (14-36); BUN Creatinine Ratio 22.4 (6-22); Bilirubin Total 0.9 mg/dL (0.2-1.3); Blood Urea Nitrogen 15 mg/dL (7-17); Calcium 8.7 mg/dL (8.4-10.2); Carbon Dioxide 25 mmol/L (22-32); Chloride 102 mmol/L (98-107); Estimated Glomerular Filt Rate > 60 mL/min (>60); Globulin 3.8 g/dL (1.7-4.1); Glucose 149 mg/dL (70-100); HEMOLYSIS 29 (0-50); Lipase 39 U/L (23-300); Potassium 3.7 mmol/L (3.4-5.1); Sodium 135 mmol/L (137-145); Total Protein 8.3 g/dL (6.3-8.2)
[2022-08-21] MEDS: ONDANSETRON 4 MG/2 ML INJ IV (20:47)
[2022-08-21] MEDS: MORPHINE 4 MG/ML INJ IV (20:47)
--- NOTE | 2022-08-21 21:37 | ED_ITS ---
HPI - General Adult General Chief complaint: Abdominal Pain Stated complaint: ABD PAIN Time Seen by Provider: 08/21/22 21:26 Source: patient Mode of arrival: Ambulatory History of Present Illness HPI narrative: 51-year-old woman with a history of diabetes presents with 24 hours of increasing left lower quadrant abdominal pain not associated with fevers, cough, diarrhea nausea or vomiting. She notes palpation anywhere around the abdomen exacerbates the left lower quadrant pain. She is not had prior abdominal surgeries and she has not had prior diverticulitis. Related Data Home Medications Medication Instructions Recorded Confirmed Imitrex 100 mg PO 10/03/19 aspirin 81 mg tablet,delayed 81 mg PO DAILY 10/03/19 10/03/19 release (Jose Alfredo Low Dose Aspirin) meloxicam 15 mg tablet 7.5 mg PO DAILY PRN Joint Pain 10/03/19 10/03/19 metformin 1,000 mg tablet 1,000 mg PO BID 10/03/19 10/03/19 sumatriptan succinate 6 mg/0.5 mL mg SUBCUT PRN headaches 10/03/19 subcutaneous pen injector (Imitrex STATdose Pen) triamcinolone acetonide 0.025 % 1 applic topical DAILY 10/03/19 10/03/19 topical cream Allergies Allergy/AdvReac Type Severity Reaction Status Date / Time No Known Drug Allergies Allergy Verified 06/09/20 08:38 Review of Systems Review of Systems Narrative: Pertinent positive and negative findings as per HPI Patient History Medical History (Updated 08/22/22 @ 00:07 by Arelis Marti MD) Acne, mild Depression Diabetes Hypertension Low back pain Migraine without aura Obesity (BMI 35.0-39.9 without comorbidity) Psoriasis Seborrheic keratosis Surgical History H/O shoulder surgery History of bilateral tubal ligation History of carpal tunnel release of both wrists History of carpal tunnel repair Social History household members: spouse Smoking Status: Never smoker Smoking Status: Never smoker alcohol intake frequency: holidays/special occasions only Substance Use Type: does not use and prescription drug Exam Initial Vital Signs Initial Vital Signs: Vital Signs Temperature 98.1 F 08/21/22 18:23 Pulse Rate 100 H 08/21/22 18:23 Respiratory Rate 18 08/21/22 18:23 Blood Pressure 141/82 H 08/21/22 18:23 Pulse Oximetry 98 08/21/22 18:23 Oxygen Delivery Method Room Air 08/21/22 18:23 General: Healthy appearing, in mild pain Able to give a complete and coherent history. Well-nourished well-developed HEENT: Moist mucous membranes, normal sclera with reactive pupils, Respiratory: Lungs are clear to auscultation, no wheezing no rales no rhonchi. Full and symmetrical air movement Cardiac: Regular rate and rhythm no murmurs no bruits Abdomen: Soft, tender in the left lower quadrant and any palpation in other quadrants exacerbate based the left lower quadrant tenderness, no flank pain Skin: Warm and dry, no rashes and particularly no rashes in the area of pain Neurologic: Grossly neurologically intact with no obvious asymmetries or abnormalities Extremities: No trauma, well perfused Psych: Cooperative, appropriate insight and affect Course Orders Ordered: ED Orders 08/21/22 18:27 EKG-12 Lead Stat 08/21/22 18:43 Complete Blood Count AUTO DIFF Stat Comprehensive Metabolic Panel Stat Lipase Stat 08/21/22 21:41 CT abdomen pelvis w con Stat Hydromorphone HCl (Hydromorphone 0.5 Mg Inj) 0.5 mg IV Q15MIN PRN PRN Reason: Pain, Last Admin: 08/21/22 21:59 Dose: 0.5 mg Documented By: Ondansetron HCl (Ondansetron 4 Mg Odt) 4 mg PO NOW PRN PRN Reason: Nausea And Vomiting Ondansetron HCl (Ondansetron 4 Mg/2 Ml Inj) 4 mg IV NOW PRN PRN Reason: Nausea And Vomiting Last Admin: 08/21/22 20:47 Dose: 4 mg Documented By: KB Discontinued Medications Sodium Chloride (Normal Saline 0.9%) 1,000 mls @ 1,000 mls/hr IV BOLUS ONE Stop: 08/21/22 22:55 Last Infusion: 08/21/22 22:57 Dose: 0 mls/hr Documented By: Admin: 08/21/22 21:59 Dose: 1,000 mls/hr Documented By: Morphine Sulfate (Morphine 4 Mg/Ml Inj) 4 mg IV NOW ONE Stop: 08/21/22 20:43 Last Admin: 08/21/22 20:47 Dose: 4 mg Documented By: GILLES Vital Signs Vital signs: Vital Signs - 8 hr 08/21/22 18:23 08/21/22 21:50 Temperature 98.1 F Pulse Rate 100 H 72 Respiratory Rate 18 18 Blood Pressure 141/82 H 137/92 H Pulse Oximetry 98 100 Oxygen Delivery Method Room Air Room Air Medical Decision Making Lab Data 08/21/22 18:43 08/21/22 18:43 Labs: Lab Results 08/21/22 08/21/22 Range/Units 18:43 18:43 WBC 9.8 (4.5-11.0) X10^3/uL RBC 4.65 (4.0-5.2) X10^6/uL Hgb 14.2 (12.0-16.0) g/dL Hct 41.9 (36-46) % MCV 90.2 (80-100) fL MCH 30.6 (26-34) PG MCHC 33.9 (30-36) % RDW 13.0 (11.6-14.8) % Plt Count 300 (150-400) X10^3/uL Neut % (Auto) 61.9 (50-75) % Lymph % (Auto) 29.8 (25-40) % [place] % (Auto) 6.9 (3-14) % Eos % (Auto) 0.7 L (2-4) % Baso % (Auto) 0.7 (0-2) % Neut # (Auto) 6100 (8798-3672) /uL Lymph # (Auto) 2900 (6446-2411) /uL [place] # (Auto) 700 (0-900) /uL Eos # (Auto) 100 (0-450) /uL Baso # (Auto) 100 (0-100) /uL Sodium 135 L (137-145) mmol/L Potassium 3.7 (3.4-5.1) mmol/L Chloride 102 (98-107) mmol/L Carbon Dioxide 25 (22-32) mmol/L BUN 15 (7-17) mg/dL Creatinine 0.67 (0.52-1.04) mg/dL Estimated GFR > 60 (>60) mL/min BUN/Creatinine Ratio 22.4 H (6-22) Glucose 149 H (70-100) mg/dL Calcium 8.7 (8.4-10.2) mg/dL Total Bilirubin 0.9 (0.2-1.3) mg/dL AST 23 (14-36) IU/L ALT 19 (<35) IU/L Alkaline Phosphatase 72 (38-126) U/L Total Protein 8.3 H (6.3-8.2) g/dL Albumin 4.5 (3.5-5.0) g/dL Globulin 3.8 (1.7-4.1) g/dL Albumin/Globulin Ratio 1.2 (1.0-2.8) Lipase 39 (23-300) U/L Urine Dip Bedside Urine Glucose Negative Bedside Urine Bilirubin - Negative Bedside Urine Ketone - Negative Urine Specific [place] 1.030 Bedside Urine Occult Blood - Negative Bedside Urine pH 5.5 Bedside Urine Protein - Negative Bedside Urine Urobilinogen - Negative Bedside Urine Nitrite - Negative Bedside Urine Leukocytes - Negative Esterase Point of care testing: Urine Dip Bedside Urine Glucose Negative Bedside Urine Bilirubin - Negative Bedside Urine Ketone - Negative Urine Specific [place] 1.030 Bedside Urine Occult Blood - Negative Bedside Urine pH 5.5 Bedside Urine Protein - Negative Bedside Urine Urobilinogen - Negative Bedside Urine Nitrite - Negative Bedside Urine Leukocytes - Negative Esterase MDM Narrative Medical decision making narrative: CC: Left lower quadrant abdominal pain, uncertain prognosis acute complaint Complicating co-morbidities: Diabetes, hypertension Data collected from: patient, Medical records reviewed: Primary care notes reviewed. Colonoscopy in September of 2019 Differential considered: Diverticulitis, constipation, gastroenteritis, appendicitis Exam documented above, pertinent findings include: Significant left lower quadrant tenderness without rebound or guarding Lab Test results independently reviewed as above. Pertinent findings: CBC is unremarkable Metabolic panel does not show any significant abnormalities Imaging studies independently reviewed: CT scan of the abdomen shows a small region of pericolonic fat stranding anterior to the descending colon, a nonspecific finding. Possible epiploic appendagitis without evidence for acute diverticulitis or appendicitis. No bowel obstruction. Discussion: 52-year-old woman with left lower quadrant pain CT scan suggests epiploic appendagitis. No evidence of acute infection, diverticulitis, bowel obstruction, appendicitis. There is no signs of sepsis. No urinary tract infection or pyelonephritis. Pain is moderately controlled after IV morphine, half a mg of IV Dilaudid, fluids and parenteral Zofran. Findings reviewed in detail with patient explaining the physiology of this interesting diagnosis. We will send her home with a Percocet prepack and instructions to return should s ymptoms worsen. Questions are answered and she is safe for discharge Discharge Plan Departure Patient Disposition: Home Clinical Impression: Appendicitis epiploica Activity Restrictions/Additional Instructions: Thank you for coming in today Your lab workup is actually quite reassuring. There is no sign of overwhelming bacterial infection, kidney problems or acute electrolyte abnormalities. Your CT scan suggests epiploic appendagitis. Along the colon there are small little outpouchings of fat, these were called epiploic appendages. Sometimes 1 of those little outpouchings can twist on itself and become inflamed. This can be quite painful but it is not a surgical emergency, does not require antibiotics and will resolve spontaneously. There is no evidence of acute diverticulitis, abscess, appendicitis or other infection that would require surgery or antibiotics Using 400 mg of ibuprofen (2 ypgo-ifi-bglwyeb pills) and 1 Tylenol every 6 hours can be very helpful in controlling pain. For severe pain you can use to ibuprofen and 1 Percocet. If you do choose to use the narcotic pain medication, please make sure you are also using a stool softener to prevent constipation. If you find that you are getting worse or develop any new symptoms, please feel free to return to the emergency department for further evaluation. Prescriptions: No Action meloxicam 15 mg Tablet 7.5 mg PO DAILY PRN (Reason: Joint Pain) aspirin [Jose Alfredo Low Dose Aspirin] 81 mg Tablet,Delayed Release (Dr/Ec) 81 mg PO DAILY triamcinolone acetonide 0.025 % Cream 1 applic TOPICAL DAILY Rx Instructions: apply thin layer to affected areas once daily metformin 1,000 mg Tablet 1,000 mg PO BID sumatriptan succinate [Imitrex STATdose Pen] 6 mg/0.5 mL Pen Injector SUBCUT PRN (Reason: headaches) Patient Comments: 1 1/2 months Rx Instructions: 1 sq at start of headache, may repeat in 2 hours, max 12mg in 24 hours Imitrex 100 mg PO Patient Comments: states that she takes it in a shot (didn't find in list) Referrals: Corinna Lynn ARNP [Primary Care Provider] - Stand Alone Forms: Patient Portal/API, Work Release Note
--- NOTE | 2022-08-21 21:41 | DI.CT.S_ITS ---
PROCEDURE: CT ABDOMEN PELVIS W CON INDICATIONS: LLQ pain TECHNIQUE: After the administration of IV contrast, axial sections were acquired from the lung bases to the pubic symphysis. Coronal and sagittal reformats were performed. For radiation dose reduction, the following was used: automated exposure control, adjustment of mA and/or kV according to patient size. COMPARISON: None. FINDINGS: Image quality: Excellent. Lung bases: Unremarkable. Heart: Heart is normal in size. ABDOMEN: Liver: No mass lesion. Gallbladder: Within normal limits without calcified gallstones. Biliary ducts: No biliary ductal dilatation. Pancreas: Unremarkable. Spleen: Normal in size. Adrenal Glands: No adrenal nodules. Kidneys and Ureters: No hydronephrosis. Stomach and Bowel: Stomach, small bowel loops, and colon are normal in caliber and wall thickness. The appendix is normal. There is colonic diverticulosis without acute diverticulitis. There is a small region of minimal pericolonic fat stranding anterior to the descending colon as seen on series 2, image 47. Peritoneum: No abnormal intraperitoneal fluid. No free air. Ventral Wall: No hernia. Abdominal Nodes: No retroperitoneal or mesenteric adenopathy by size criteria. Vessels: Aorta and inferior vena cava are normal in size. PELVIS: Pelvic Organs: Unremarkable. Bladder: Unremarkable. Pelvic Nodes: No enlarged lymph nodes. Miscellaneous: No inguinal hernias are seen. Bones: Visualized osseous structures demonstrate no suspicious focal lesions. IMPRESSION: 1. Small region of minimal pericolonic fat stranding anterior to the descending colon is nonspecific. The findings are suggestive of epiploic appendagitis or an omental infarct. 2. Colonic diverticulosis without acute diverticulitis. 3. No evidence of appendicitis. Dictated by: Jake Spencer M.D. on 08/21/2022 at 23:35 Approved by: Jake Spencer M.D. on 08/21/2022 at 23:39
[2022-08-21 21:50] VITALS: BP 137/92; PULSE 72; RESP 18; O2SAT 100
[2022-08-21] MEDS: SODIUM CHLORIDE 0.9% 1,000 ML 1000 ML IV (21:59)
[2022-08-21] MEDS: HYDROMORPHONE 0.5 MG INJ IV (21:59)
[2022-08-22] MEDS: OXYCODONE/APAP 5/325 PREPACK 1 BOTTLE MISC (00:16)
[2022-08-22 00:18] VITALS: PULSE 66; O2SAT 98
[2022-08-22 00:23] VITALS: BP 137/88; RESP 18
== END 2022-08-22 00:24 | disposition home or self-care (01) ==
PROVIDERS: Emergency Provider Emergency Medicine; PCP Internal Medicine
DX: K63.89 Other specified diseases of intestine (principal)
CPT/HCPCS: 36415; 74177; 80053; 81003; 83690; 85025; 93005; 96361; 96374; 96375; 99284; J1170; J2270; J2405; Q9967

== ENCOUNTER → 2022-09-22 08:00 | Outpatient (CLI) | payer OTHER, SELFPAY ==
--- NOTE | 2022-09-22 | DI.MG.S_ITS ---
BILATERAL DIGITAL SCREENING MAMMOGRAM 3D/2D WITH CAD: 09/22/2022 CLINICAL: Routine screening. Comparison is made to exams dated: 09/09/2021 mammogram, 09/07/2020 mammogram, and 07/31/2019 mammogram - [facility]. Both breasts are heterogeneously dense, which may obscure small masses (category c / 51-75% glandular tissue). Current study was also evaluated with a Computer Aided Detection (CAD) system. No significant masses, calcifications, or other findings are seen in either breast. There has been no significant interval change. IMPRESSION: NEGATIVE There is no mammographic evidence of malignancy. A 1 year screening mammogram is recommended. Based on the Tyrer Cuzick model (a risk assessment model) the patient's lifetime risk is 15.0% and her 10 year risk is 4.1%. According to the ACR, ACS, and NCCN guidelines, an annual breast MRI exam along with mammogram is recommended if the patient's lifetime risk is 20% or greater. This exam was interpreted at Station ID: [id number]. NOTE: For mammograms, a report in lay terms will be sent to the patient. Approximately 15% of breast malignancies will not be visualized mammographically. In the management of a palpable breast mass, a negative mammogram must not discourage biopsy of a clinically suspicious lesion. Electronically Signed By: Sukumar morrison/ebthany:09/22/2022 08:44:18 letter sent: Normal Exam ACR BI-RADS Category 1: Negative 3341F
== END ==
PROVIDERS: PCP Internal Medicine; Referring Provider Internal Medicine; Visit Provider Internal Medicine
DX: Z12.31 Encounter for screening mammogram for malignant neoplasm of breast (principal)
CPT/HCPCS: 77063; 77067

== ENCOUNTER → 2023-03-08 08:49 | Outpatient (CLI) | payer OTHER, SELFPAY | PROVIDERS: PCP Internal Medicine; Visit Provider Nurse Practitioner Family | DX: J02.9 Acute pharyngitis, unspecified (principal) | CPT/HCPCS: 87070; 87077; 87147 ==

== ENCOUNTER → 2023-09-05 07:17 | Outpatient (CLI) | payer OTHER, SELFPAY | PROVIDERS: PCP Student in an Organized Health Care Education/Training Program; Visit Provider Nurse Practitioner Family | DX: J02.9 Acute pharyngitis, unspecified (principal) | CPT/HCPCS: 87070 ==

== ENCOUNTER → 2023-09-15 07:20 | Outpatient (CLI) | payer OTHER, SELFPAY | PROVIDERS: PCP Student in an Organized Health Care Education/Training Program; Visit Provider Registered Nurse | DX: J02.9 Acute pharyngitis, unspecified (principal) | CPT/HCPCS: 87070; 87077; 87147 ==

== ENCOUNTER → 2023-09-28 07:35 | Outpatient (CLI) | payer OTHER, SELFPAY ==
--- NOTE | 2023-09-28 07:36 | DI.MG.S_ITS ---
BILATERAL DIGITAL SCREENING MAMMOGRAM 3D/2D WITH CAD: 09/28/2023 CLINICAL: Routine screening. Comparison is made to exams dated: 09/22/2022 mammogram, 09/09/2021 mammogram, and 09/07/2020 mammogram - [facility]. There are scattered areas of fibroglandular density in both breasts (category b / 25%-50% glandular tissue). Current study was also evaluated with a Computer Aided Detection (CAD) system. No significant masses, calcifications, or other findings are seen in either breast. There has been no significant interval change. IMPRESSION: NEGATIVE There is no mammographic evidence of malignancy. A 1 year screening mammogram is recommended. Based on the Tyrer Cuzick model (a risk assessment model) the patient's lifetime risk is 10.0% and her 10 year risk is 2.9%. According to the ACR, ACS, and NCCN guidelines, an annual breast MRI exam along with mammogram is recommended if the patient's lifetime risk is 20% or greater. This exam was interpreted at Station ID: [id number]. NOTE: For mammograms, a report in lay terms will be sent to the patient. Approximately 15% of breast malignancies will not be visualized mammographically. In the management of a palpable breast mass, a negative mammogram must not discourage biopsy of a clinically suspicious lesion. Electronically Signed By: Aguilar munoz/bethany:09/28/2023 08:12:50 letter sent: Normal Exam ACR BI-RADS Category 1: Negative 3341F
== END ==
LOC: MAMMO 07:35
PROVIDERS: PCP Student in an Organized Health Care Education/Training Program; Referring Provider Student in an Organized Health Care Education/Training Program; Visit Provider Student in an Organized Health Care Education/Training Program
DX: Z12.31 Encounter for screening mammogram for malignant neoplasm of breast (principal); R92.323 Mammographic fibroglandular density, bilateral breasts
CPT/HCPCS: 77063; 77067

== ENCOUNTER → 2024-03-14 07:16 | Outpatient (CLI) | payer OTHER, SELFPAY ==
[2024-03-14 07:42] LABS: Add Manual Diff / Slide Review NO; Basophils Absolute Auto 100 /uL (0-100); Basophils Percent Auto 1.3 % (0-2); Eosinophils Absolute Auto 100 /uL (0-450); Eosinophils Percent Auto 0.9 % (2-4); Hematocrit 43.3 % (36-46); Hemoglobin 14.5 g/dL (12.0-16.0); Lymphocytes Absolute Auto 2400 /uL (1100-4500); Lymphocytes Percent Auto 35.7 % (25-40); Mean Corpuscular HGB Conc 33.5 % (30-36); Mean Corpuscular Hemoglobin 30.8 PG (26-34); Mean Corpuscular Volume 91.8 fL (80-100); Monocytes Absolute Auto 500 /uL (0-900); Monocytes Percent Auto 6.7 % (3-14); Neutrophils Absolute Auto 3700 /uL (1500-7000); Neutrophils Percent Auto 55.4 % (50-75); Platelet Count 359 X10^3/uL (150-400); Red Blood Cell Count 4.71 X10^6/uL (4.0-5.2); Red Cell Distribution Width 12.9 % (11.6-14.8); White Blood Cell Count 6.7 X10^3/uL (4.5-11.0)
[2024-03-14 07:56] LABS: Hemoglobin A1C% w Est Avg Glu 5.5 % (4.0-6.0)
[2024-03-14 08:02] LABS: Alanine Aminotransferase 19 IU/L (<35); Albumin 4.4 g/dL (3.5-5.0); Albumin Globulin Ratio 1.5 (1.0-2.8); Alkaline Phosphatase 68 U/L (38-126); Aspartate Aminotransferase 25 IU/L (14-36); BUN Creatinine Ratio 22.7 (6-22); Bilirubin Total 1.1 mg/dL (0.2-1.3); Blood Urea Nitrogen 15 mg/dL (7-17); Calcium 8.9 mg/dL (8.4-10.2); Carbon Dioxide 27 mmol/L (22-32); Chloride 102 mmol/L (98-107); Cholesterol 204 mg/dL (140-199); Estimated Glomerular Filt Rate > 60 mL/min (>60); Glucose 125 mg/dL (70-100); HDL Cholesterol 55 mg/dL (40-60); HEMOLYSIS < 15 (0-50); LDL Cholesterol Calculated 130 mg/dL (<100); Potassium 4.4 mmol/L (3.4-5.1); Sodium 136 mmol/L (137-145); Total Protein 7.4 g/dL (6.3-8.2); Triglycerides 97 mg/dL (35-150)
[2024-03-14 08:15] LABS: Creatinine Urine Random 98.35 mg/dL
[2024-03-14 08:26] LABS: Microalbumin Urine Random < 0.6 mg/dL (0-1.6)
== END ==
PROVIDERS: PCP Student in an Organized Health Care Education/Training Program; Referring Provider Student in an Organized Health Care Education/Training Program; Visit Provider Student in an Organized Health Care Education/Training Program
DX: I10 Essential (primary) hypertension (principal); E11.9 Type 2 diabetes mellitus without complications
CPT/HCPCS: 36415; 80053; 80061; 82043; 82570; 83036; 85025

== ENCOUNTER → 2024-03-15 14:59 | Outpatient (CLI) | payer OTHER, SELFPAY ==
--- NOTE | 2024-03-15 15:01 | DI.US.S_ITS ---
PROCEDURE: US PELVIC COMPLETE INDICATIONS: Post menopausal bleeding TECHNIQUE: Real-time scanning was performed of the pelvic organs, with image documentation. Additional endovaginal scanning was necessary due to incomplete visualization of the adnexal and endometrial structures by transabdominal scanning. COMPARISON: None. FINDINGS: Uterus: 7.5 x 3.7 x 5.2 cm. Endometrium measures 5.2 mm. Heterogeneous myometrial echotexture with a few complex cysts measuring up to 1.2 x 1.1 cm. Ovaries: Not seen Other: No pathologic free fluid. IMPRESSION: Borderline thickened endometrium, measuring just above 5 mm. Consider sampling in the setting of postmenopausal bleeding. Nonspecific heterogeneity of the subendometrial region/myometrium with cystic changes measuring up to 1.2 x 1.1 cm. Dictated by: Sukumar Melton M.D. on 03/15/2024 at 19:33 Approved by: Sukumar Melton M.D. on 03/15/2024 at 19:34
== END ==
PROVIDERS: PCP Student in an Organized Health Care Education/Training Program; Referring Provider Student in an Organized Health Care Education/Training Program; Visit Provider Student in an Organized Health Care Education/Training Program
DX: N95.0 Postmenopausal bleeding (principal); N93.9 Abnormal uterine and vaginal bleeding, unspecified
CPT/HCPCS: 76830; 76856

== ENCOUNTER 2024-09-09 17:00 | Outpatient (RCR) | payer OTHER, SELFPAY ==
--- NOTE | 2024-07-10 17:15 | PT.OPPOC ---
Physical, Occupational & Speech Therapy At [facility] Current Diagnoses Pain in left foot (07/10/24) Visit Care Team Role Provider Type Marie Ro MD Family Provider Physician Primary Care Provider Specialty: Family Practice Obstetrics Address: [facility] [place], [address] Email: [email or web address] Domingo [email or web address] Attending Provider Physician Referring Provider Specialty: Orthopedics Orthopedic Surgery Podiatry Address: [address] [place] [address], [id number] Email: [email or web address] Plan Of Care PT-OP-B Current Condition Start: 07/10/24 17:38 Freq: Status: Active Protocol: Document 07/10/24 16:30 DCW (Rec: 07/10/24 17:49 DCW [id number]) Current Condition History of Current Condition Current Complaints Left foot pain, arthritis History of Current Pt is a 54 year old female presenting with a multi-year Condition history of worsening foot pain. 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 Notes that by the end of the day, my foot is killing me. Was seen by her compensator, reports x-rays of her left foot showed arthritis. Admits she goes through a lot of shoes, wears out about one pair a month. Currently wearing croc-like footwear. Reports she has vague memories of wearing braces on her legs as a child, but has no memory of why she worse them or how long. Pt's goal is to be able to tolerate a full work day without severe foot pain by the end of the day. PT-OP-T Assessment and Plan Start: 07/10/24 17:38 Freq: Status: Active Protocol: Document 07/10/24 16:30 DCW (Rec: 07/11/24 08:53 DCW [id number]) Physical Therapy Assessment Rehab Potential Rehabilitation Good Potential Evaluation Complexity Number of Personal 3 or More Factors/ Comorbidities Number of Body 4 or More Systems Impaired Clinical Evolving Presentation at Evaluation Impairments Impairments Functional Activities,Functional Mobility,Gait,Pain,ROM ,Soft Tissue Mobility,Tone Goals Three Impairment Pt experiences severe pain in L foot by the end of her work day Alf Goal (LTG) Pt to report left foot pain is a maximum of 4/10 following her work day for one full week, in order to better tolerate working conditions LTG Duration 09/10/24 Two Impairment Pt displays decreased ankle dorsiflexion bilaterally Track Repairer Helper Goal (LTG) Pt to demonstrate increased AROM of bilateral dorsiflexion to >5? in order to improve gait pattern and decrease functional limitations at her ankles LTG Duration 09/10/24 One Impairment Pt does not have an appropriate home exercise program Short Term Goal (STG Pt to be independent and compliant with an appropriate ) HEP STG Duration 08/10/24 Assessment Summary Assessment Pt presents with signs and symptoms consistent with referring diagnosis. Pt complains of pain on the dorsal surface of her left foot, especially following extended time on her feet. Pt displays increased tone along bilateral gastrocsoleus complex, L>R, as well as limitations in bilateral ankle ROM, most notable dorsiflexion. Pt feet excessively pronated in standing. Currently wearing croc-like footwear, discussed importance of supportive shoes. Gait restricted by lack of DF, resulting in shortened stride length and reduced push-off. Pt will likely benefit from skilled therapeutic intervention focusing on decreasing calf tone, improving functional ankle ROM, and strengthening intrinsic foot musculature. Physical Therapy Plan Frequency and Duration Frequency of 2x/Week Treatment Plan of Care Start 07/10/24 Plan of Care End 09/09/24 Date Therapeutic Interventions Therapeutic Balance Training,Gait Training,Home Exercise Program, Interventions Joint Mobilizations,Manual Therapy,Neuromuscular Re- education,Patient/Caregiver Education,Self-Care/Home Management,Soft Tissue Mobilization,Therapeutic Activities,Therapeutic Exercises Next Visit Focus/Plan Next Note Type Treatment Note Next Visit Plan Brush pick-up, joint mobs, calf STM Plan of Care Dates Plan of Care Start Date 07/10/24 Plan of Care End Date 09/09/24 Electronically Signed by: Jass Lion, PT 07/11/24 0838 If you are in agreement with this Plan of Care, please return a signed and dated copy. I have reviewed this Plan of Care and certify that the skilled therapy services above are required to meet the patient?s needs. Physician Signature Date Printed Name and Credentials Clinical Instructor Signature Printed Name and Credentials
--- NOTE | 2024-07-10 17:15 | PT.OIE ---
Current Diagnoses Pain in left foot (07/10/24) Past Medical History (Last Updated 03/11/24 @ 11:04 by Angela Leone MA) Acne, mild Depression Diabetes Headache Hypertension Low back pain Mgr NOS wo ntrc w st mgr (01/31/11) Migraine without aura Obesity (BMI 35.0-39.9 without comorbidity) Psoriasis Seborrheic keratosis Type 2 diabetes mellitus Past Surgical History (Last Reviewed 09/15/23 @ 07:45 by DALTON Gillette) H/O shoulder surgery History of bilateral tubal ligation History of carpal tunnel release of both wrists History of carpal tunnel repair Visit Care Team Role Provider Type Marie Ro MD Family Provider Physician Primary Care Provider Specialty: Family Practice Obstetrics Address: [address] [place] [address], [id number] Email: [email or web address] Kathleen Domingo DPM Attending Provider Physician Referring Provider Specialty: Orthopedics Orthopedic Surgery Podiatry Address: [address] [place] [address], [id number] Email: [email or web address] Physical Therapy Initial Evaluation PT-OP-A Visit Information Start: 07/10/24 17:38 Freq: Status: Active Protocol: Document 07/10/24 16:30 DCW (Rec: 07/10/24 17:49 DCW [id number]) Out-Patient Physical Therapy Visit Information Visit Information Visit Type Initial Evaluation Visit Start Time 16:30 Visit Stop Time 17:10 Visit Number 1 Number of SOCIAL SCIENCE ANALYST Visits 0 Evaluation Information Evaluation Date 07/10/24 PT-OP-B Current Condition Start: 07/10/24 17:38 Freq: Status: Active Protocol: Document 07/10/24 16:30 DCW (Rec: 07/10/24 17:49 DCW [id number]) Current Condition History of Current Condition Current Complaints Left foot pain, arthritis History of Current Pt is a 54 year old female presenting with a multi-year Condition history of worsening foot pain. 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 Notes that by the end of the day, my foot is killing me. Was seen by her airport operations duty manager, reports x-rays of her left foot showed arthritis. Admits she goes through a lot of shoes, wears out about one pair a month. Currently wearing croc-like footwear. Reports she has vague memories of wearing braces on her legs as a child, but has no memory of why she worse them or how long. Pt's goal is to be able to tolerate a full work day without severe foot pain by the end of the day. PT-OP-C Subjective Start: 07/10/24 17:38 Freq: Status: Active Protocol: Document 07/10/24 16:30 DCW (Rec: 07/10/24 17:49 DCW [id number]) OP-PT Subjective Patient Comments Patient Comments They told me I had arthritis, and that I should go to PT, but I'm not really sure how PT is going to help arthritis. Patient Reported Worse Progress PT-OP-F Manual Assessment Start: 07/10/24 17:38 Freq: Status: Active Protocol: Document 07/10/24 16:30 DCW (Rec: 07/11/24 08:38 DCW [id number]) Manual Assessments Joint Mobility Assessment Joint Mobility Mild tenderness at proximal end with mobilization of Assessment left third metatarsal PT-OP-G Mobility & Gait Start: 07/10/24 17:38 Freq: Status: Active Protocol: Document 07/10/24 16:30 DCW (Rec: 07/11/24 08:38 DCW [id number]) OP Gait Assessment Comments Gait Comments Pt exhibits early push off during gait bilaterally with decreased stride length, limitations in bilateral dorsiflexion ROM PT-OP-K Range of Motion Start: 07/10/24 17:38 Freq: Status: Active Protocol: Document 07/10/24 16:30 DCW (Rec: 07/11/24 08:38 DCW [id number]) Ankle and Foot Goniometric Range of Motion Ankle and Foot Right Active Ankle/Foot ROM WFL No Testing Position Sitting Dorsiflexion with 2 Knee Flexed Plantarflexion 45 Inversion 35 Eversion 15 Comments DF with knee extended measured at -3? Left Active Ankle/Foot ROM WFL No Testing Position Sitting Dorsiflexion with 1 Knee Flexed Plantarflexion 40 Inversion 20 Eversion 10 Comments DF with knee extended measured at -5? PT-OP-Q Treatments Start: 07/10/24 17:38 Freq: Status: Active Protocol: Document 07/10/24 16:30 DCW (Rec: 07/10/24 17:49 DCW [id number]) Therapeutic Exercises Sitting Exercises Towel Scrunch Sitting Exercise Towel scrunch with foot Name Side bilateral Standing Exercises Calf Stretch Standing Exercise Runner's stretch: straight knee, bent knee Name Side bilateral PT-OP-T Assessment and Plan Start: 07/10/24 17:38 Freq: Status: Active Protocol: Document 07/10/24 16:30 DCW (Rec: 07/11/24 08:53 DCW [id number]) Physical Therapy Assessment Rehab Potential Rehabilitation Good Potential Evaluation Complexity Number of Personal 3 or More Factors/ Comorbidities Number of Body 4 or More Systems Impaired Clinical Evolving Presentation at Evaluation Impairments Impairments Functional Activities,Functional Mobility,Gait,Pain,ROM ,Soft Tissue Mobility,Tone Goals Three Impairment Pt experiences severe pain in L foot by the end of her work day Intermediate Goal (LTG) Pt to report left foot pain is a maximum of 4/10 following her work day for one full week, in order to better tolerate working conditions LTG Duration 09/10/24 Two Impairment Pt displays decreased ankle dorsiflexion bilaterally Intermediate Goal (LTG) Pt to demonstrate increased AROM of bilateral dorsiflexion to >5? in order to improve gait pattern and decrease functional limitations at her ankles LTG Duration 09/10/24 One Impairment Pt does not have an appropriate home exercise program Short Term Goal (STG Pt to be independent and compliant with an appropriate ) HEP STG Duration 08/10/24 Assessment Summary Assessment Pt presents with signs and symptoms consistent with referring diagnosis. Pt complains of pain on the dorsal surface of her left foot, especially following extended time on her feet. Pt displays increased tone along bilateral gastrocsoleus complex, L>R, as well as limitations in bilateral ankle ROM, most notable dorsiflexion. Pt feet excessively pronated in standing. Currently wearing croc-like footwear, discussed importance of supportive shoes. Gait restricted by lack of DF, resulting in shortened stride length and reduced push-off. Pt will likely benefit from skilled therapeutic intervention focusing on decreasing calf tone, improving functional ankle ROM, and strengthening intrinsic foot musculature. Physical Therapy Plan Frequency and Duration Frequency of 2x/Week Treatment Plan of Care Start 07/10/24 Date Plan of Care End 09/09/24 Date Therapeutic Interventions Therapeutic Balance Training,Gait Training,Home Exercise Program, Interventions Joint Mobilizations,Manual Therapy,Neuromuscular Re- education,Patient/Caregiver Education,Self-Care/Home Management,Soft Tissue Mobilization,Therapeutic Activities,Therapeutic Exercises Next Visit Focus/Plan Next Note Type Treatment Note Next Visit Plan [place] pick-up, joint mobs, calf STM
--- NOTE | 2024-07-22 17:57 | PT.OTN ---
Current Diagnoses Pain in left foot (07/22/24) Physical Therapy Treatment Note PT-OP-A Visit Information Start: 07/10/24 17:38 Freq: Status: Active Protocol: Document 07/22/24 17:02 AB (Rec: 07/22/24 17:52 AB Laptop) Out-Patient Physical Therapy Visit Information Visit Information Visit Type Treatment Note Visit Note Access Code: [email or web address] Visit Start Time 17:02 Visit Stop Time 17:47 Visit Number 2 Number of ROUND UP RING HAND Visits 1 Evaluation Information Evaluation Date 07/10/24 PT-OP-B Current Condition Start: 07/10/24 17:38 Freq: Status: Active Protocol: Document 07/10/24 16:30 DCW (Rec: 07/10/24 17:49 DCW [id number]) Current Condition History of Current Condition Current Complaints Left foot pain, arthritis History of Current Pt is a 54 year old female presenting with a multi-year Condition history of worsening foot pain. 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 Notes that by the end of the day, my foot is killing me. Was seen by her dehydrogenation converter helper, reports x-rays of her left foot showed arthritis. Admits she goes through a lot of shoes, wears out about one pair a month. Currently wearing croc-like footwear. Reports she has vague memories of wearing braces on her legs as a child, but has no memory of why she worse them or how long. Pt's goal is to be able to tolerate a full work day without severe foot pain by the end of the day. PT-OP-C Subjective Start: 07/10/24 17:38 Freq: Status: Active Protocol: Document 07/22/24 17:02 AB (Rec: 07/22/24 17:52 AB Laptop) OP-PT Subjective Patient Comments Patient Comments Patient reports she is the same. Patient rates pain 6/ 10 K L foot ambulating into session without device ipsilateral trunk sidebend bilaterally stance phase, dec DF terminal stance with LE's ER at hips PT-OP-F Manual Assessment Start: 07/10/24 17:38 Freq: Status: Active Protocol: Document 07/10/24 16:30 DCW (Rec: 07/11/24 08:38 DCW [id number]) Manual Assessments Joint Mobility Assessment Joint Mobility Mild tenderness at proximal end with mobilization of Assessment left third metatarsal PT-OP-G Mobility & Gait Start: 07/10/24 17:38 Freq: Status: Active Protocol: Document 07/10/24 16:30 DCW (Rec: 07/11/24 08:38 DCW [id number]) OP Gait Assessment Comments Gait Comments Pt exhibits early push off during gait bilaterally with decreased stride length, limitations in bilateral dorsiflexion ROM PT-OP-K Range of Motion Start: 07/10/24 17:38 Freq: Status: Active Protocol: Document 07/10/24 16:30 DCW (Rec: 07/11/24 08:38 DCW [id number]) Ankle and Foot Goniometric Range of Motion Ankle and Foot Right Active Ankle/Foot ROM WFL No Testing Position Sitting Dorsiflexion with 2 Knee Flexed Plantarflexion 45 Inversion 35 Eversion 15 Comments DF with knee extended measured at -3? Left Active Ankle/Foot ROM WFL No Testing Position Sitting Dorsiflexion with 1 Knee Flexed Plantarflexion 40 Inversion 20 Eversion 10 Comments DF with knee extended measured at -5? PT-OP-Q Treatments Start: 07/10/24 17:38 Freq: Status: Active Protocol: Document 07/22/24 17:02 AB (Rec: 07/22/24 17:52 AB Laptop) Therapeutic Exercises Supine Exercises piriformis stretch Supine Exercise Name HEP Side bilateral Reps/Minutes 60 sec X 2 each Comments verbal cues Sitting Exercises arch/great toe abd Sitting Exercise HEP Name Reps/Minutes X 10 X 2 Comments verbal and tactile cues then X [address] toe yoga Sitting Exercise HEP Name Reps/Minutes X 10 Comments verbal cues Standing Exercises step through calf stretch Standing Exercise On NOAH with UE use Name Reps/Minutes X 15 each LE Comments verbal and visual cues glute med isometric Standing Exercise HEP Name Reps/Minutes 60 sec each LE Comments Patient reports no pain with ambulation post Calf Stretch Standing Exercise on stairs Name Side bilateral Reps/Minutes 60 sec X 2 each Comments verbal cues Manual Therapy Treatment Consent Patient gave verbal Yes consent for manual treatment Soft Tissue Mobilization L calf Mobilization Type Cross-Friction,Instrument Assisted,Rolling Intensity/Depth Moderate Body Position Prone Comments cupping with AROM PF DF with cups on soleus and gastroc X 10 each PT-OP-T Assessment and Plan Start: 07/10/24 17:38 Freq: Status: Active Protocol: Document 07/22/24 17:02 AB (Rec: 07/22/24 17:52 AB Laptop) Physical Therapy Assessment Goals Three Impairment Pt experiences severe pain in L foot by the end of her work day Music Adapter Goal (LTG) Pt to report left foot pain is a maximum of 4/10 following her work day for one full week, in order to better tolerate working conditions LTG Duration 09/10/24 Two Impairment Pt displays decreased ankle dorsiflexion bilaterally Music Adapter Goal (LTG) Pt to demonstrate increased AROM of bilateral dorsiflexion to >5? in order to improve gait pattern and decrease functional limitations at her ankles LTG Duration 09/10/24 One Impairment Pt does not have an appropriate home exercise program Short Term Goal (STG Pt to be independent and compliant with an appropriate ) HEP STG Duration 08/10/24 Assessment Summary Assessment Patient rates pain 3/10 L foot ambulating out of session without device. Increased piriformis stiffness contributing/vs impacted by calf muscle stiffness, and gait deviations. Physical Therapy Plan Frequency and Duration Frequency of 2x/Week Treatment Plan of Care Start 07/10/24 Date Plan of Care End 09/09/24 Date Therapeutic Interventions Therapeutic Balance Training,Gait Training,Home Exercise Program, Interventions Joint Mobilizations,Manual Therapy,Neuromuscular Re- education,Patient/Caregiver Education,Self-Care/Home Management,Soft Tissue Mobilization,Therapeutic Activities,Therapeutic Exercises Next Visit Focus/Plan Next Note Type Treatment Note Next Visit Plan [place] pick-up, joint mobs, calf STM
--- NOTE | 2024-07-29 18:01 | PT.OTN ---
Current Diagnoses Pain in left foot (07/29/24) Physical Therapy Treatment Note PT-OP-A Visit Information Start: 07/10/24 17:38 Freq: Status: Active Protocol: Document 07/29/24 16:10 AB (Rec: 07/29/24 18:01 AB Laptop) Out-Patient Physical Therapy Visit Information Visit Information Visit Type Treatment Note Visit Note Access Code: [email or web address] Visit Start Time 17:03 Visit Stop Time 17:45 Visit Number 3 ( PN due 08/09/2024 Number of SALES COMPENSATION ANALYST Visits 2 Evaluation Information Evaluation Date 07/10/24 PT-OP-B Current Condition Start: 07/10/24 17:38 Freq: Status: Active Protocol: Document 07/10/24 16:30 DCW (Rec: 07/10/24 17:49 DCW [id number]) Current Condition History of Current Condition Current Complaints Left foot pain, arthritis History of Current Pt is a 54 year old female presenting with a multi-year Condition history of worsening foot pain. 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 Notes that by the end of the day, my foot is killing me. Was seen by her hedge fund manager, reports x-rays of her left foot showed arthritis. Admits she goes through a lot of shoes, wears out about one pair a month. Currently wearing croc-like footwear. Reports she has vague memories of wearing braces on her legs as a child, but has no memory of why she worse them or how long. Pt's goal is to be able to tolerate a full work day without severe foot pain by the end of the day. PT-OP-C Subjective Start: 07/10/24 17:38 Freq: Status: Active Protocol: Document 07/29/24 16:10 AB (Rec: 07/29/24 18:01 AB Laptop) OP-PT Subjective Patient Comments Patient Comments Patient reports pain 3/10 after being on feet all day. Patient reports her father made her a NOAH to perform stretches at home. PT-OP-F Manual Assessment Start: 07/10/24 17:38 Freq: Status: Active Protocol: Document 07/10/24 16:30 DCW (Rec: 07/11/24 08:38 DCW [id number]) Manual Assessments Joint Mobility Assessment Joint Mobility Mild tenderness at proximal end with mobilization of Assessment left third metatarsal PT-OP-G Mobility & Gait Start: 07/10/24 17:38 Freq: Status: Active Protocol: Document 07/10/24 16:30 DCW (Rec: 07/11/24 08:38 DCW [id number]) OP Gait Assessment Comments Gait Comments Pt exhibits early push off during gait bilaterally with decreased stride length, limitations in bilateral dorsiflexion ROM PT-OP-K Range of Motion Start: 07/10/24 17:38 Freq: Status: Active Protocol: Document 07/10/24 16:30 DCW (Rec: 07/11/24 08:38 DCW [id number]) Ankle and Foot Goniometric Range of Motion Ankle and Foot Right Active Ankle/Foot ROM WFL No Testing Position Sitting Dorsiflexion with 2 Knee Flexed Plantarflexion 45 Inversion 35 Eversion 15 Comments DF with knee extended measured at -3? Left Active Ankle/Foot ROM WFL No Testing Position Sitting Dorsiflexion with 1 Knee Flexed Plantarflexion 40 Inversion 20 Eversion 10 Comments DF with knee extended measured at -5? PT-OP-Q Treatments Start: 07/10/24 17:38 Freq: Status: Active Protocol: Document 07/29/24 16:10 AB (Rec: 07/29/24 18:01 AB Laptop) Therapeutic Exercises Supine Exercises piriformis stretch Supine Exercise Name HEP Side bilateral Reps/Minutes 60 sec X 2 each Comments verbal cues Standing Exercises Squats Standing Exercise HEP Name Side bilateral Resistance Level 4 band Reps/Minutes X 10 X 3 Comments Verbal cues for LE alignment and hip hinge step through calf stretch Standing Exercise On NOAH with UE use Name Reps/Minutes X 15 each LE Comments verbal and visual cues Calf Stretch Standing Exercise on NOAH Name Side bilateral Reps/Minutes 60 sec X 2 each Comments verbal cues Manual Therapy Treatment Consent Patient gave verbal Yes consent for manual treatment Soft Tissue Mobilization L calf Mobilization Type Cross-Friction,Instrument Assisted,Rolling Intensity/Depth Moderate Body Position Prone Comments cupping with AROM PF DF with cups on soleus and gastroc X 10 each also prone quad sets feet on mat X 5 PT-OP-T Assessment and Plan Start: 07/10/24 17:38 Freq: Status: Active Protocol: Document 07/29/24 16:10 AB (Rec: 07/29/24 18:01 AB Laptop) Physical Therapy Assessment Goals Three Impairment Pt experiences severe pain in L foot by the end of her work day Group Home Goal (LTG) Pt to report left foot pain is a maximum of 4/10 following her work day for one full week, in order to better tolerate working conditions LTG Duration 09/10/24 Two Impairment Pt displays decreased ankle dorsiflexion bilaterally Embroidery Worker Goal (LTG) Pt to demonstrate increased AROM of bilateral dorsiflexion to >5? in order to improve gait pattern and decrease functional limitations at her ankles LTG Duration 09/10/24 One Impairment Pt does not have an appropriate home exercise program Short Term Goal (STG Pt to be independent and compliant with an appropriate ) HEP STG Duration 08/10/24 Assessment Summary Assessment Good return demonstration for mini squat. Patient into session with reports of less pain after 10 hour day on her feet today, rating pain 3/10 start of session. Calf muscle stiffness continues to be a problem limiting functional mobility and ability to squat to increased depth with good alignment at ankles. Physical Therapy Plan Frequency and Duration Frequency of 2x/Week Treatment Plan of Care Start 07/10/24 Date Plan of Care End 09/09/24 Date Next Visit Focus/Plan Next Note Type Treatment Note Next Visit Plan [place] pick-up, joint mobs, calf STM Possibly Assess balance and sara to squats
--- NOTE | 2024-07-31 17:50 | PT.OTN ---
Current Diagnoses Pain in left foot (07/31/24) Physical Therapy Treatment Note PT-OP-A Visit Information Start: 07/10/24 17:38 Freq: Status: Active Protocol: Document 07/31/24 17:05 DCW (Rec: 07/31/24 17:49 DCW [id number]) Out-Patient Physical Therapy Visit Information Visit Information Visit Type Treatment Note Visit Note Access Code: [email or web address] Visit Start Time 17:05 Visit Stop Time 17:45 Visit Number 4 Number of BAKERY TEAM LEADER Visits 0 Evaluation Information Evaluation Date 07/10/24 PT-OP-B Current Condition Start: 07/10/24 17:38 Freq: Status: Active Protocol: Document 07/10/24 16:30 DCW (Rec: 07/10/24 17:49 DCW [id number]) Current Condition History of Current Condition Current Complaints Left foot pain, arthritis History of Current Pt is a 54 year old female presenting with a multi-year Condition history of worsening foot pain. 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 Notes that by the end of the day, my foot is killing me. Was seen by her electrical calibrator, reports x-rays of her left foot showed arthritis. Admits she goes through a lot of shoes, wears out about one pair a month. Currently wearing croc-like footwear. Reports she has vague memories of wearing braces on her legs as a child, but has no memory of why she worse them or how long. Pt's goal is to be able to tolerate a full work day without severe foot pain by the end of the day. PT-OP-C Subjective Start: 07/10/24 17:38 Freq: Status: Active Protocol: Document 07/31/24 17:05 DCW (Rec: 07/31/24 17:49 DCW [id number]) OP-PT Subjective Patient Comments Patient Comments Pt has been feeling fairly good, but while sitting in the waiting room, she began to have spasming in the top of her foot. PT-OP-F Manual Assessment Start: 07/10/24 17:38 Freq: Status: Active Protocol: Document 07/10/24 16:30 DCW (Rec: 07/11/24 08:38 DCW [id number]) Manual Assessments Joint Mobility Assessment Joint Mobility Mild tenderness at proximal end with mobilization of Assessment left third metatarsal PT-OP-G Mobility & Gait Start: 07/10/24 17:38 Freq: Status: Active Protocol: Document 07/10/24 16:30 DCW (Rec: 07/11/24 08:38 DCW [id number]) OP Gait Assessment Comments Gait Comments Pt exhibits early push off during gait bilaterally with decreased stride length, limitations in bilateral dorsiflexion ROM PT-OP-K Range of Motion Start: 07/10/24 17:38 Freq: Status: Active Protocol: Document 07/10/24 16:30 DCW (Rec: 07/11/24 08:38 DCW [id number]) Ankle and Foot Goniometric Range of Motion Ankle and Foot Right Active Ankle/Foot ROM WFL No Testing Position Sitting Dorsiflexion with 2 Knee Flexed Plantarflexion 45 Inversion 35 Eversion 15 Comments DF with knee extended measured at -3? Left Active Ankle/Foot ROM WFL No Testing Position Sitting Dorsiflexion with 1 Knee Flexed Plantarflexion 40 Inversion 20 Eversion 10 Comments DF with knee extended measured at -5? PT-OP-Q Treatments Start: 07/10/24 17:38 Freq: Status: Active Protocol: Document 07/31/24 17:05 DCW (Rec: 07/31/24 17:49 CAW [id number]) Therapeutic Exercises Sitting Exercises [place] Pick-up Sitting Exercise [place] Pick-up Name Side left Standing Exercises Calf Stretch Standing Exercise calf-stretch to heel raise Name Reps/Minutes 6 step Other Exercises Foam Stance Other Exercise Name Tandem on Foam, SLS on foam Resisted Ambulation Other Exercise Name Resisted ambulation with band around feet Resistance Green loop Manual Therapy Treatment Consent Patient gave verbal Yes consent for manual treatment Soft Tissue Mobilization L calf Mobilization Type Cross-Friction,Rolling Intensity/Depth Moderate Body Position Sitting PT-OP-T Assessment and Plan Start: 07/10/24 17:38 Freq: Status: Active Protocol: Document 07/31/24 17:05 DCW (Rec: 07/31/24 17:49 CAW [id number]) Physical Therapy Assessment Goals Three Impairment Pt experiences severe pain in L foot by the end of her work day Small Business Representative Goal (LTG) Pt to report left foot pain is a maximum of 4/10 following her work day for one full week, in order to better tolerate working conditions LTG Duration 09/10/24 Two Impairment Pt displays decreased ankle dorsiflexion bilaterally [facility] Goal (LTG) Pt to demonstrate increased AROM of bilateral dorsiflexion to >5? in order to improve gait pattern and decrease functional limitations at her ankles LTG Duration 09/10/24 One Impairment Pt does not have an appropriate home exercise program Short Term Goal (STG Pt to be independent and compliant with an appropriate ) HEP STG Duration 08/10/24 Assessment Summary Assessment Pt ambulating with a better motion through her left ankle, showing good overall progress. Continue to work on improving tone and increasing left ankle ROM. Physical Therapy Plan Frequency and Duration Frequency of 2x/Week Treatment Plan of Care Start 07/10/24 Date Plan of Care End 09/09/24 Date Next Visit Focus/Plan Next Note Type Treatment Note Next Visit Plan joint mobs, calf STM Assess sara to squats
--- NOTE | 2024-08-06 17:42 | PT.OTN ---
Current Diagnoses Pain in left foot (08/06/24) Physical Therapy Treatment Note PT-OP-A Visit Information Start: 07/10/24 17:38 Freq: Status: Active Protocol: Document 08/06/24 17:00 DCW (Rec: 08/06/24 17:42 DCW [id number]) Out-Patient Physical Therapy Visit Information Visit Information Visit Type Treatment Note Visit Start Time 17:00 Visit Stop Time 17:45 Visit Number 5 Number of SEMI AUTOMATIC SEWING MACHINE OPERATOR Visits 0 Evaluation Information Evaluation Date 07/10/24 PT-OP-B Current Condition Start: 07/10/24 17:38 Freq: Status: Active Protocol: Document 07/10/24 16:30 DCW (Rec: 07/10/24 17:49 DCW [id number]) Current Condition History of Current Condition Current Complaints Left foot pain, arthritis History of Current Pt is a 54 year old female presenting with a multi-year Condition history of worsening foot pain. 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 Notes that by the end of the day, my foot is killing me. Was seen by her translator, reports x-rays of her left foot showed arthritis. Admits she goes through a lot of shoes, wears out about one pair a month. Currently wearing croc-like footwear. Reports she has vague memories of wearing braces on her legs as a child, but has no memory of why she worse them or how long. Pt's goal is to be able to tolerate a full work day without severe foot pain by the end of the day. PT-OP-C Subjective Start: 07/10/24 17:38 Freq: Status: Active Protocol: Document 08/06/24 17:00 DCW (Rec: 08/06/24 17:42 DCW [id number]) OP-PT Subjective Patient Comments Patient Comments I feel pretty good tonight. Reports the medial dorsal surface is the only sore point today. PT-OP-F Manual Assessment Start: 07/10/24 17:38 Freq: Status: Active Protocol: Document 07/10/24 16:30 DCW (Rec: 07/11/24 08:38 DCW [id number]) Manual Assessments Joint Mobility Assessment Joint Mobility Mild tenderness at proximal end with mobilization of Assessment left third metatarsal PT-OP-G Mobility & Gait Start: 07/10/24 17:38 Freq: Status: Active Protocol: Document 07/10/24 16:30 DCW (Rec: 07/11/24 08:38 DCW [id number]) OP Gait Assessment Comments Gait Comments Pt exhibits early push off during gait bilaterally with decreased stride length, limitations in bilateral dorsiflexion ROM PT-OP-K Range of Motion Start: 07/10/24 17:38 Freq: Status: Active Protocol: Document 07/10/24 16:30 DCW (Rec: 07/11/24 08:38 DCW [id number]) Ankle and Foot Goniometric Range of Motion Ankle and Foot Right Active Ankle/Foot ROM WFL No Testing Position Sitting Dorsiflexion with 2 Knee Flexed Plantarflexion 45 Inversion 35 Eversion 15 Comments DF with knee extended measured at -3? Left Active Ankle/Foot ROM WFL No Testing Position Sitting Dorsiflexion with 1 Knee Flexed Plantarflexion 40 Inversion 20 Eversion 10 Comments DF with knee extended measured at -5? PT-OP-Q Treatments Start: 07/10/24 17:38 Freq: Status: Active Protocol: Document 08/06/24 17:00 DCW (Rec: 08/06/24 17:42 DCW [id number]) Therapeutic Exercises Other Exercises Step-downs Other Exercise Name Lateral Step-downs Side bilateral Equipment Used 8 step Tilt Board Other Exercise Name Tilt board Side bilateral Comments DF/PF Foam Stance Other Exercise Name Tandem on Foam, SLS on foam Resisted Ambulation Other Exercise Name Resisted ambulation with band around feet Resistance Green loop Manual Therapy Treatment Soft Tissue Mobilization L foot Body Location Posterior tib Mobilization Type Strumming,Sustained Pressure,Trigger Point Release L calf Mobilization Type Cross-Friction,Strumming,Sustained Pressure Intensity/Depth Moderate Body Position Sitting PT-OP-T Assessment and Plan Start: 07/10/24 17:38 Freq: Status: Active Protocol: Document 08/06/24 17:00 DCW (Rec: 08/06/24 17:42 DCW [id number]) Physical Therapy Assessment Impairments Impairments Functional Activities,Functional Mobility,Gait,Pain,ROM ,Soft Tissue Mobility,Tone Goals Three Impairment Pt experiences severe pain in L foot by the end of her work day Senior Living Goal (LTG) Pt to report left foot pain is a maximum of 4/10 following her work day for one full week, in order to better tolerate working conditions LTG Duration 09/10/24 Two Impairment Pt displays decreased ankle dorsiflexion bilaterally Associate Chemist Goal (LTG) Pt to demonstrate increased AROM of bilateral dorsiflexion to >5? in order to improve gait pattern and decrease functional limitations at her ankles LTG Duration 09/10/24 One Impairment Pt does not have an appropriate home exercise program Short Term Goal (STG Pt to be independent and compliant with an appropriate ) HEP STG Duration 08/10/24 Assessment Summary Assessment Pt doing better with pain control and functional mobility, although continues to experience dorsal- surface foot pain. Continue to focus on foot mobility, strengthening, gait, and tone management Physical Therapy Plan Frequency and Duration Frequency of 2x/Week Treatment Plan of Care Start 07/10/24 Date Plan of Care End 09/09/24 Date Therapeutic Interventions Therapeutic Balance Training,Gait Training,Home Exercise Program, Interventions Joint Mobilizations,Manual Therapy,Neuromuscular Re- education,Patient/Caregiver Education,Self-Care/Home Management,Soft Tissue Mobilization,Therapeutic Activities,Therapeutic Exercises Next Visit Focus/Plan Next Note Type Treatment Note Next Visit Plan joint mobs, calf STM Assess sara to squats
--- NOTE | 2024-08-11 16:59 | PT.OTN ---
Current Diagnoses Pain in left foot (08/11/24) Physical Therapy Treatment Note PT-OP-A Visit Information Start: 07/10/24 17:38 Freq: Status: Active Protocol: Document 08/11/24 16:15 DCW (Rec: 08/11/24 16:59 DCW [id number]) Out-Patient Physical Therapy Visit Information Visit Information Visit Type Treatment Note Visit Start Time 16:15 Visit Stop Time 17:00 Visit Number 6 Number of BARROW WORKER Visits 0 Evaluation Information Evaluation Date 07/10/24 PT-OP-B Current Condition Start: 07/10/24 17:38 Freq: Status: Active Protocol: Document 07/10/24 16:30 DCW (Rec: 07/10/24 17:49 DCW [id number]) Current Condition History of Current Condition Current Complaints Left foot pain, arthritis History of Current Pt is a 54 year old female presenting with a multi-year Condition history of worsening foot pain. 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 Notes that by the end of the day, my foot is killing me. Was seen by her software configuration analyst, reports x-rays of her left foot showed arthritis. Admits she goes through a lot of shoes, wears out about one pair a month. Currently wearing croc-like footwear. Reports she has vague memories of wearing braces on her legs as a child, but has no memory of why she worse them or how long. Pt's goal is to be able to tolerate a full work day without severe foot pain by the end of the day. PT-OP-C Subjective Start: 07/10/24 17:38 Freq: Status: Active Protocol: Document 08/11/24 16:15 DCW (Rec: 08/11/24 16:59 DCW [id number]) OP-PT Subjective Patient Comments Patient Comments Pt reports she can still tell the difference in her foot when she is on her feet working all day vs when she is relaxing at home. PT-OP-F Manual Assessment Start: 07/10/24 17:38 Freq: Status: Active Protocol: Document 07/10/24 16:30 DCW (Rec: 07/11/24 08:38 DCW [id number]) Manual Assessments Joint Mobility Assessment Joint Mobility Mild tenderness at proximal end with mobilization of Assessment left third metatarsal PT-OP-G Mobility & Gait Start: 07/10/24 17:38 Freq: Status: Active Protocol: Document 07/10/24 16:30 DCW (Rec: 07/11/24 08:38 DCW [id number]) OP Gait Assessment Comments Gait Comments Pt exhibits early push off during gait bilaterally with decreased stride length, limitations in bilateral dorsiflexion ROM PT-OP-K Range of Motion Start: 07/10/24 17:38 Freq: Status: Active Protocol: Document 07/10/24 16:30 DCW (Rec: 07/11/24 08:38 DCW [id number]) Ankle and Foot Goniometric Range of Motion Ankle and Foot Right Active Ankle/Foot ROM WFL No Testing Position Sitting Dorsiflexion with 2 Knee Flexed Plantarflexion 45 Inversion 35 Eversion 15 Comments DF with knee extended measured at -3? Left Active Ankle/Foot ROM WFL No Testing Position Sitting Dorsiflexion with 1 Knee Flexed Plantarflexion 40 Inversion 20 Eversion 10 Comments DF with knee extended measured at -5? PT-OP-Q Treatments Start: 07/10/24 17:38 Freq: Status: Active Protocol: Document 08/11/24 16:15 DCW (Rec: 08/11/24 16:59 DCW [id number]) Gym Equipment Shuttle Balance Red Details DF/PF, Lateral weight-shift Therapeutic Exercises Other Exercises SLS Other Exercise Name SLS Side bilateral Resistance BOSU Step-downs Other Exercise Name Lateral Step-downs Side bilateral Equipment Used 8 step Foam Stance Other Exercise Name Tandem on Foam, SLS on foam, cone tap Side bilateral Equipment Used AirEx Resisted Ambulation Other Exercise Name Resisted ambulation with band around feet Resistance Green loop Manual Therapy Treatment Consent Patient gave verbal Yes consent for manual treatment Soft Tissue Mobilization L foot Body Location Posterior tib Mobilization Type Strumming,Sustained Pressure,Trigger Point Release L calf Mobilization Type Cross-Friction,Strumming,Sustained Pressure Intensity/Depth Moderate Body Position Sitting PT-OP-T Assessment and Plan Start: 07/10/24 17:38 Freq: Status: Active Protocol: Document 08/11/24 16:15 DCW (Rec: 08/11/24 16:59 DCW [id number]) Physical Therapy Assessment Impairments Impairments Functional Activities,Functional Mobility,Gait,Pain,ROM ,Soft Tissue Mobility,Tone Goals Three Impairment Pt experiences severe pain in L foot by the end of her work day Long-Term Goal (LTG) Pt to report left foot pain is a maximum of 4/10 following her work day for one full week, in order to better tolerate working conditions LTG Duration 09/10/24 Two Impairment Pt displays decreased ankle dorsiflexion bilaterally Long-Term Goal (LTG) Pt to demonstrate increased AROM of bilateral dorsiflexion to >5? in order to improve gait pattern and decrease functional limitations at her ankles LTG Duration 09/10/24 One Impairment Pt does not have an appropriate home exercise program Short Term Goal (STG Pt to be independent and compliant with an appropriate ) HEP STG Duration 08/10/24 Assessment Summary Assessment Pt showing good improvement overall, improved mobility and decreased pain in foot. Ambulation improving. Pt continues to experience increased discomfort when standing for extended time at work. Continue to focus on pain control, decreased tone, and improved activity tolerance. Physical Therapy Plan Frequency and Duration Frequency of 2x/Week Treatment Plan of Care Start 07/10/24 Date Plan of Care End 09/09/24 Date Therapeutic Interventions Therapeutic Balance Training,Gait Training,Home Exercise Program, Interventions Joint Mobilizations,Manual Therapy,Neuromuscular Re- education,Patient/Caregiver Education,Self-Care/Home Management,Soft Tissue Mobilization,Therapeutic Activities,Therapeutic Exercises Next Visit Focus/Plan Next Note Type Treatment Note Next Visit Plan joint mobs, calf STM Assess sara to squats
--- NOTE | 2024-08-14 17:46 | PT.OTN ---
Current Diagnoses Pain in left foot (08/14/24) Physical Therapy Treatment Note PT-OP-A Visit Information Start: 07/10/24 17:38 Freq: Status: Active Protocol: Document 08/14/24 17:03 DCW (Rec: 08/14/24 17:46 DCW [id number]) Out-Patient Physical Therapy Visit Information Visit Information Visit Type Treatment Note Visit Start Time 17:03 Visit Stop Time 17:45 Visit Number 7 Number of MUSEUM PREPARATOR Visits 0 Evaluation Information Evaluation Date 07/10/24 PT-OP-B Current Condition Start: 07/10/24 17:38 Freq: Status: Active Protocol: Document 07/10/24 16:30 DCW (Rec: 07/10/24 17:49 DCW [id number]) Current Condition History of Current Condition Current Complaints Left foot pain, arthritis History of Current Pt is a 54 year old female presenting with a multi-year Condition history of worsening foot pain. 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 Notes that by the end of the day, my foot is killing me. Was seen by her eligibility consultant, reports x-rays of her left foot showed arthritis. Admits she goes through a lot of shoes, wears out about one pair a month. Currently wearing croc-like footwear. Reports she has vague memories of wearing braces on her legs as a child, but has no memory of why she worse them or how long. Pt's goal is to be able to tolerate a full work day without severe foot pain by the end of the day. PT-OP-C Subjective Start: 07/10/24 17:38 Freq: Status: Active Protocol: Document 08/14/24 17:03 DCW (Rec: 08/14/24 17:45 DCW [id number]) OP-PT Subjective Patient Comments Patient Comments Notes her foot has been feeling quite a bit better. PT-OP-F Manual Assessment Start: 07/10/24 17:38 Freq: Status: Active Protocol: Document 07/10/24 16:30 DCW (Rec: 07/11/24 08:38 DCW [id number]) Manual Assessments Joint Mobility Assessment Joint Mobility Mild tenderness at proximal end with mobilization of Assessment left third metatarsal PT-OP-G Mobility & Gait Start: 07/10/24 17:38 Freq: Status: Active Protocol: Document 07/10/24 16:30 DCW (Rec: 07/11/24 08:38 DCW [id number]) OP Gait Assessment Comments Gait Comments Pt exhibits early push off during gait bilaterally with decreased stride length, limitations in bilateral dorsiflexion ROM PT-OP-K Range of Motion Start: 07/10/24 17:38 Freq: Status: Active Protocol: Document 07/10/24 16:30 DCW (Rec: 07/11/24 08:38 DCW [id number]) Ankle and Foot Goniometric Range of Motion Ankle and Foot Right Active Ankle/Foot ROM WFL No Testing Position Sitting Dorsiflexion with 2 Knee Flexed Plantarflexion 45 Inversion 35 Eversion 15 Comments DF with knee extended measured at -3? Left Active Ankle/Foot ROM WFL No Testing Position Sitting Dorsiflexion with 1 Knee Flexed Plantarflexion 40 Inversion 20 Eversion 10 Comments DF with knee extended measured at -5? PT-OP-Q Treatments Start: 07/10/24 17:38 Freq: Status: Active Protocol: Document 08/14/24 17:03 DCW (Rec: 08/14/24 17:45 DCW [id number]) Gym Equipment Shuttle Balance Red Details DF/PF, Staggered, Lateral weight-shift Therapeutic Exercises Standing Exercises Calf Stretch Standing Exercise calf-stretch to heel raise Name Reps/Minutes 6 step Other Exercises BOSU Lunge Other Exercise Name BOSU Lunge Equipment Used Blue BOSU SLS Other Exercise Name SLS Side bilateral Resistance BOSU Step-downs Other Exercise Name Lateral Step-downs Side bilateral Equipment Used 8 step Manual Therapy Treatment Consent Patient gave verbal Yes consent for manual treatment Soft Tissue Mobilization L foot Body Location Posterior tib Mobilization Type Strumming,Sustained Pressure,Trigger Point Release L calf Mobilization Type Cross-Friction,Strumming,Sustained Pressure Intensity/Depth Moderate Body Position Sitting PT-OP-T Assessment and Plan Start: 07/10/24 17:38 Freq: Status: Active Protocol: Document 08/14/24 17:03 DCW (Rec: 08/14/24 17:45 DCW [id number]) Physical Therapy Assessment Impairments Impairments Functional Activities,Functional Mobility,Gait,Pain,ROM ,Soft Tissue Mobility,Tone Goals Three Impairment Pt experiences severe pain in L foot by the end of her work day Turret Lathe Operator Goal (LTG) Pt to report left foot pain is a maximum of 4/10 following her work day for one full week, in order to better tolerate working conditions LTG Duration 09/10/24 Two Impairment Pt displays decreased ankle dorsiflexion bilaterally [facility] Goal (LTG) Pt to demonstrate increased AROM of bilateral dorsiflexion to >5? in order to improve gait pattern and decrease functional limitations at her ankles LTG Duration 09/10/24 One Impairment Pt does not have an appropriate home exercise program Short Term Goal (STG Pt to be independent and compliant with an appropriate ) HEP STG Duration 08/10/24 Assessment Summary Assessment Tolerating treatment well, showing great progress overall with tone in calf and ankle mobility. Does still report increased soreness with full day of standing during work. Continue to focus on ankle mobility, tone management, and pain control. Physical Therapy Plan Frequency and Duration Frequency of 2x/Week Treatment Plan of Care Start 07/10/24 Date Plan of Care End 09/09/24 Date Therapeutic Interventions Therapeutic Balance Training,Gait Training,Home Exercise Program, Interventions Joint Mobilizations,Manual Therapy,Neuromuscular Re- education,Patient/Caregiver Education,Self-Care/Home Management,Soft Tissue Mobilization,Therapeutic Activities,Therapeutic Exercises Next Visit Focus/Plan Next Note Type Treatment Note Next Visit Plan joint mobs, calf STM Assess sara to squats
--- NOTE | 2024-08-18 16:58 | PT.OTN ---
Current Diagnoses Pain in left foot (08/18/24) Physical Therapy Treatment Note PT-OP-A Visit Information Start: 07/10/24 17:38 Freq: Status: Active Protocol: Document 08/18/24 16:15 DCW (Rec: 08/18/24 16:58 DCW [id number]) Out-Patient Physical Therapy Visit Information Visit Information Visit Type Treatment Note Visit Start Time 16:15 Visit Stop Time 17:00 Visit Number 8 Number of SPANNER OPERATOR Visits 0 Evaluation Information Evaluation Date 07/10/24 PT-OP-B Current Condition Start: 07/10/24 17:38 Freq: Status: Active Protocol: Document 07/10/24 16:30 DCW (Rec: 07/10/24 17:49 DCW [id number]) Current Condition History of Current Condition Current Complaints Left foot pain, arthritis History of Current Pt is a 54 year old female presenting with a multi-year Condition history of worsening foot pain. 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 Notes that by the end of the day, my foot is killing me. Was seen by her station mechanic helper, reports x-rays of her left foot showed arthritis. Admits she goes through a lot of shoes, wears out about one pair a month. Currently wearing croc-like footwear. Reports she has vague memories of wearing braces on her legs as a child, but has no memory of why she worse them or how long. Pt's goal is to be able to tolerate a full work day without severe foot pain by the end of the day. PT-OP-C Subjective Start: 07/10/24 17:38 Freq: Status: Active Protocol: Document 08/18/24 16:15 DCW (Rec: 08/18/24 16:58 DCW [id number]) OP-PT Subjective Patient Comments Patient Comments I feel like it has made a difference, doing all these exercises. PT-OP-F Manual Assessment Start: 07/10/24 17:38 Freq: Status: Active Protocol: Document 07/10/24 16:30 DCW (Rec: 07/11/24 08:38 DCW [id number]) Manual Assessments Joint Mobility Assessment Joint Mobility Mild tenderness at proximal end with mobilization of Assessment left third metatarsal PT-OP-G Mobility & Gait Start: 07/10/24 17:38 Freq: Status: Active Protocol: Document 07/10/24 16:30 DCW (Rec: 07/11/24 08:38 DCW [id number]) OP Gait Assessment Comments Gait Comments Pt exhibits early push off during gait bilaterally with decreased stride length, limitations in bilateral dorsiflexion ROM PT-OP-K Range of Motion Start: 07/10/24 17:38 Freq: Status: Active Protocol: Document 07/10/24 16:30 DCW (Rec: 07/11/24 08:38 DCW [id number]) Ankle and Foot Goniometric Range of Motion Ankle and Foot Right Active Ankle/Foot ROM WFL No Testing Position Sitting Dorsiflexion with 2 Knee Flexed Plantarflexion 45 Inversion 35 Eversion 15 Comments DF with knee extended measured at -3? Left Active Ankle/Foot ROM WFL No Testing Position Sitting Dorsiflexion with 1 Knee Flexed Plantarflexion 40 Inversion 20 Eversion 10 Comments DF with knee extended measured at -5? PT-OP-Q Treatments Start: 07/10/24 17:38 Freq: Status: Active Protocol: Document 08/18/24 16:15 DCW (Rec: 08/18/24 16:58 DCW [id number]) Therapeutic Exercises Standing Exercises Calf Stretch Standing Exercise Calf-stretch Name Side bilateral Equipment Used NOAH Other Exercises BOSU Lunge Other Exercise Name BOSU Lunge Equipment Used Blue BOSU SLS Other Exercise Name SLS Side bilateral Resistance BOSU Step-downs Other Exercise Name Lateral Step-downs Side bilateral Equipment Used 8 step Foam Stance Other Exercise Name Tandem on Foam, SLS on foam, cone tap Side bilateral Equipment Used AirEx Manual Therapy Treatment Consent Patient gave verbal Yes consent for manual treatment Soft Tissue Mobilization L foot Body Location Posterior tib Mobilization Type Strumming,Sustained Pressure,Trigger Point Release L calf Mobilization Type Cross-Friction,Strumming,Sustained Pressure Intensity/Depth Moderate Body Position Sitting PT-OP-T Assessment and Plan Start: 07/10/24 17:38 Freq: Status: Active Protocol: Document 08/18/24 16:15 DCW (Rec: 08/18/24 16:58 DCW [id number]) Physical Therapy Assessment Impairments Impairments Functional Activities,Functional Mobility,Gait,Pain,ROM ,Soft Tissue Mobility,Tone Goals Three Impairment Pt experiences severe pain in L foot by the end of her work day Bus Transportation Manager Goal (LTG) Pt to report left foot pain is a maximum of 4/10 following her work day for one full week, in order to better tolerate working conditions LTG Duration 09/10/24 Two Impairment Pt displays decreased ankle dorsiflexion bilaterally Bus Transportation Manager Goal (LTG) Pt to demonstrate increased AROM of bilateral dorsiflexion to >5? in order to improve gait pattern and decrease functional limitations at her ankles LTG Duration 09/10/24 One Impairment Pt does not have an appropriate home exercise program Short Term Goal (STG Pt to be independent and compliant with an appropriate ) HEP STG Duration 08/10/24 Assessment Summary Assessment Pt continues to exhibit some overall progress, but does note continuing pain with longer stance times. Continue to focus on functional mobility, pain control, and joint mods/STM Physical Therapy Plan Frequency and Duration Frequency of 2x/Week Treatment Plan of Care Start 07/10/24 Date Plan of Care End 09/09/24 Date Therapeutic Interventions Therapeutic Balance Training,Gait Training,Home Exercise Program, Interventions Joint Mobilizations,Manual Therapy,Neuromuscular Re- education,Patient/Caregiver Education,Self-Care/Home Management,Soft Tissue Mobilization,Therapeutic Activities,Therapeutic Exercises Next Visit Focus/Plan Next Note Type Treatment Note Next Visit Plan joint mobs, calf STM Assess sara to squats
--- NOTE | 2024-08-20 17:37 | PT.OTN ---
Current Diagnoses Pain in left foot (08/20/24) Physical Therapy Treatment Note PT-OP-A Visit Information Start: 07/10/24 17:38 Freq: Status: Active Protocol: Document 08/20/24 15:40 AB (Rec: 08/20/24 17:36 AB [id number]) Out-Patient Physical Therapy Visit Information Visit Information Visit Type Treatment Note Visit Note Access Code: [email or web address] Visit Start Time 16:36 Visit Stop Time 17:28 Visit Number 9 Number of RN PSYCH Visits 1 Evaluation Information Evaluation Date 07/10/24 PT-OP-B Current Condition Start: 07/10/24 17:38 Freq: Status: Active Protocol: Document 07/10/24 16:30 DCW (Rec: 07/10/24 17:49 DCW [id number]) Current Condition History of Current Condition Current Complaints Left foot pain, arthritis History of Current Pt is a 54 year old female presenting with a multi-year Condition history of worsening foot pain. 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 Notes that by the end of the day, my foot is killing me. Was seen by her fur cutter, reports x-rays of her left foot showed arthritis. Admits she goes through a lot of shoes, wears out about one pair a month. Currently wearing croc-like footwear. Reports she has vague memories of wearing braces on her legs as a child, but has no memory of why she worse them or how long. Pt's goal is to be able to tolerate a full work day without severe foot pain by the end of the day. PT-OP-C Subjective Start: 07/10/24 17:38 Freq: Status: Active Protocol: Document 08/20/24 15:40 AB (Rec: 08/20/24 17:36 AB [id number]) OP-PT Subjective Patient Comments Patient Comments Patient reports she has a spot that is sore dorsal surface L foot. Patient rates pain 4/10 start of session. PT-OP-F Manual Assessment Start: 07/10/24 17:38 Freq: Status: Active Protocol: Document 07/10/24 16:30 DCW (Rec: 07/11/24 08:38 DCW [id number]) Manual Assessments Joint Mobility Assessment Joint Mobility Mild tenderness at proximal end with mobilization of Assessment left third metatarsal PT-OP-G Mobility & Gait Start: 07/10/24 17:38 Freq: Status: Active Protocol: Document 07/10/24 16:30 DCW (Rec: 07/11/24 08:38 DCW [id number]) OP Gait Assessment Comments Gait Comments Pt exhibits early push off during gait bilaterally with decreased stride length, limitations in bilateral dorsiflexion ROM PT-OP-K Range of Motion Start: 07/10/24 17:38 Freq: Status: Active Protocol: Document 07/10/24 16:30 DCW (Rec: 07/11/24 08:38 DCW [id number]) Ankle and Foot Goniometric Range of Motion Ankle and Foot Right Active Ankle/Foot ROM WFL No Testing Position Sitting Dorsiflexion with 2 Knee Flexed Plantarflexion 45 Inversion 35 Eversion 15 Comments DF with knee extended measured at -3? Left Active Ankle/Foot ROM WFL No Testing Position Sitting Dorsiflexion with 1 Knee Flexed Plantarflexion 40 Inversion 20 Eversion 10 Comments DF with knee extended measured at -5? PT-OP-Q Treatments Start: 07/10/24 17:38 Freq: Status: Active Protocol: Document 08/20/24 15:40 AB (Rec: 08/20/24 17:36 AB [id number]) Therapeutic Exercises Standing Exercises piriformis stretch Side left Reps/Minutes 60 sec X 2 Comments Verbal cues due to toe out on initiation of squats Squats Standing Exercise HEP Name Side bilateral Resistance Level 4 band Reps/Minutes X 10 X 3 Comments Verbal cues for LE alignment and hip hinge Calf Stretch Standing Exercise Calf-stretch Name Side bilateral Equipment Used on stairs Reps/Minutes knees bent and straight X 3 each 60 sec Comments pre and post manual Other Exercises BOSU step ups Reps/Minutes X 10 each LE Comments CGA hands above bars Foam Stance Other Exercise Name Tandem on Foam, SLS on foam, cone tap Side bilateral Equipment Used AirEx Comments Supervision to CGA hands above bars Manual Therapy Treatment Consent Patient gave verbal Yes consent for manual treatment Soft Tissue Mobilization L foot Body Location Posterior tib, anterior tib and peroneals Mobilization Type Cross-Friction,Rolling,Sustained Pressure L calf Mobilization Type Cross-Friction,Instrument Assisted,Strumming,Sustained Pressure Intensity/Depth Moderate Body Position Prone Joint Mobilizations L ankle MWM Joint TC Direction AP Grade IV Body Position Standing Reps/Duration X 10 X 3 L MTs Joint L foot MTs Direction AP and PA Grade IV Body Position Hooklying Reps/Duration X 8 A P and PA PT-OP-T Assessment and Plan Start: 07/10/24 17:38 Freq: Status: Active Protocol: Document 08/20/24 15:40 AB (Rec: 08/20/24 17:36 AB [id number]) Physical Therapy Assessment Goals Three Impairment Pt experiences severe pain in L foot by the end of her work day Prison Goal (LTG) Pt to report left foot pain is a maximum of 4/10 following her work day for one full week, in order to better tolerate working conditions LTG Duration 09/10/24 Two Impairment Pt displays decreased ankle dorsiflexion bilaterally Prison Goal (LTG) Pt to demonstrate increased AROM of bilateral dorsiflexion to >5? in order to improve gait pattern and decrease functional limitations at her ankles LTG Duration 09/10/24 One Impairment Pt does not have an appropriate home exercise program Short Term Goal (STG Pt to be independent and compliant with an appropriate ) HEP STG Duration 08/10/24 Assessment Summary Assessment Patient reports pain L foot resolved post MWM, during standing and ambulation without device but, does report she can feel the area when she moves her foot. Physical Therapy Plan Frequency and Duration Frequency of 2x/Week Treatment Plan of Care Start 07/10/24 Date Plan of Care End 09/09/24 Date Next Visit Focus/Plan Next Note Type Treatment Note Next Visit Plan joint mobs, calf STM
--- NOTE | 2024-08-26 17:51 | PT.OTN ---
Current Diagnoses Pain in left foot (08/26/24) Physical Therapy Treatment Note PT-OP-A Visit Information Start: 07/10/24 17:38 Freq: Status: Active Protocol: Document 08/26/24 17:00 DCW (Rec: 08/26/24 17:51 DCW [id number]) Out-Patient Physical Therapy Visit Information Visit Information Visit Type Treatment Note Visit Start Time 17:00 Visit Stop Time 17:45 Visit Number [address] INTERPRETER Visits 0 Evaluation Information Evaluation Date 07/10/24 PT-OP-B Current Condition Start: 07/10/24 17:38 Freq: Status: Active Protocol: Document 07/10/24 16:30 DCW (Rec: 07/10/24 17:49 DCW [id number]) Current Condition History of Current Condition Current Complaints Left foot pain, arthritis History of Current Pt is a 54 year old female presenting with a multi-year Condition history of worsening foot pain. 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 Notes that by the end of the day, my foot is killing me. Was seen by her barrel lathe operator, reports x-rays of her left foot showed arthritis. Admits she goes through a lot of shoes, wears out about one pair a month. Currently wearing croc-like footwear. Reports she has vague memories of wearing braces on her legs as a child, but has no memory of why she worse them or how long. Pt's goal is to be able to tolerate a full work day without severe foot pain by the end of the day. PT-OP-C Subjective Start: 07/10/24 17:38 Freq: Status: Active Protocol: Document 08/26/24 17:00 DCW (Rec: 08/26/24 17:51 DCW [id number]) OP-PT Subjective Patient Comments Patient Comments It feels pretty good today! PT-OP-F Manual Assessment Start: 07/10/24 17:38 Freq: Status: Active Protocol: Document 07/10/24 16:30 DCW (Rec: 07/11/24 08:38 DCW [id number]) Manual Assessments Joint Mobility Assessment Joint Mobility Mild tenderness at proximal end with mobilization of Assessment left third metatarsal PT-OP-G Mobility & Gait Start: 07/10/24 17:38 Freq: Status: Active Protocol: Document 07/10/24 16:30 DCW (Rec: 07/11/24 08:38 DCW [id number]) OP Gait Assessment Comments Gait Comments Pt exhibits early push off during gait bilaterally with decreased stride length, limitations in bilateral dorsiflexion ROM PT-OP-K Range of Motion Start: 07/10/24 17:38 Freq: Status: Active Protocol: Document 07/10/24 16:30 DCW (Rec: 07/11/24 08:38 DCW [id number]) Ankle and Foot Goniometric Range of Motion Ankle and Foot Right Active Ankle/Foot ROM WFL No Testing Position Sitting Dorsiflexion with 2 Knee Flexed Plantarflexion 45 Inversion 35 Eversion 15 Comments DF with knee extended measured at -3? Left Active Ankle/Foot ROM WFL No Testing Position Sitting Dorsiflexion with 1 Knee Flexed Plantarflexion 40 Inversion 20 Eversion 10 Comments DF with knee extended measured at -5? PT-OP-Q Treatments Start: 07/10/24 17:38 Freq: Status: Active Protocol: Document 08/26/24 17:00 DCW (Rec: 08/26/24 17:51 DCW [id number]) Gym Equipment Shuttle Balance Red Details DF/PF, Staggered, Lateral weight-shift Therapeutic Exercises Standing Exercises Calf Stretch Standing Exercise Calf-stretch Name Side bilateral Equipment Used NOAH Other Exercises BOSU Lunge Other Exercise Name BOSU Lunge Equipment Used Blue BOSU SLS Other Exercise Name SLS Side bilateral Step-downs Other Exercise Name Step-ups Side bilateral Equipment Used 6 step Foam Stance Other Exercise Name Tandem on Foam, SLS on foam Side bilateral Equipment Used AirEx Comments Supervision to CGA hands above bars Manual Therapy Treatment Consent Patient gave verbal Yes consent for manual treatment Soft Tissue Mobilization L foot Body Location Posterior tib, anterior tib and peroneals Mobilization Type Cross-Friction,Rolling,Sustained Pressure L calf Mobilization Type Cross-Friction,Instrument Assisted,Strumming,Sustained Pressure Intensity/Depth Moderate Body Position Prone Joint Mobilizations L MTs Joint L foot MTs Direction AP and PA Grade IV Body Position Sitting PT-OP-T Assessment and Plan Start: 07/10/24 17:38 Freq: Status: Active Protocol: Document 08/26/24 17:00 DCW (Rec: 08/26/24 17:51 DCW [id number]) Physical Therapy Assessment Impairments Impairments Functional Activities,Functional Mobility,Gait,Pain,ROM ,Soft Tissue Mobility,Tone Goals Three Impairment Pt experiences severe pain in L foot by the end of her work day Jail Goal (LTG) Pt to report left foot pain is a maximum of 4/10 following her work day for one full week, in order to better tolerate working conditions LTG Duration 09/10/24 Two Impairment Pt displays decreased ankle dorsiflexion bilaterally Fisher Goal (LTG) Pt to demonstrate increased AROM of bilateral dorsiflexion to >5? in order to improve gait pattern and decrease functional limitations at her ankles LTG Duration 09/10/24 One Impairment Pt does not have an appropriate home exercise program Short Term Goal (STG Pt to be independent and compliant with an appropriate ) HEP STG Duration 08/10/24 Assessment Summary Assessment Pt progressing well, notes she feels her foot is stronger, experiencing much less overall pain when spending time on her feet. Continue to focus on STM/ joint mobs, strengthening, and balance to challenge dynamic foot control. Physical Therapy Plan Frequency and Duration Frequency of 2x/Week Treatment Plan of Care Start 07/10/24 Date Plan of Care End 09/09/24 Date Therapeutic Interventions Therapeutic Balance Training,Gait Training,Home Exercise Program, Interventions Joint Mobilizations,Manual Therapy,Neuromuscular Re- education,Patient/Caregiver Education,Self-Care/Home Management,Soft Tissue Mobilization,Therapeutic Activities,Therapeutic Exercises Next Visit Focus/Plan Next Note Type Treatment Note Next Visit Plan joint mobs, calf STM Assess sara to squats
--- NOTE | 2024-08-28 17:59 | PT.OTN ---
Current Diagnoses Pain in left foot (08/28/24) Physical Therapy Treatment Note PT-OP-A Visit Information Start: 07/10/24 17:38 Freq: Status: Active Protocol: Document 08/28/24 16:16 AB (Rec: 08/28/24 17:51 AB [id number]) Out-Patient Physical Therapy Visit Information Visit Information Visit Type Treatment Note Visit Note Access Code: [email or web address] Visit Start Time 16:18 Visit Stop Time 17:00 Visit Number 11 Number of CLINICAL QUALITY ANALYST Visits 1 Evaluation Information Evaluation Date 07/10/24 PT-OP-B Current Condition Start: 07/10/24 17:38 Freq: Status: Active Protocol: Document 07/10/24 16:30 DCW (Rec: 07/10/24 17:49 DCW [id number]) Current Condition History of Current Condition Current Complaints Left foot pain, arthritis History of Current Pt is a 54 year old female presenting with a multi-year Condition history of worsening foot pain. 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 Notes that by the end of the day, my foot is killing me. Was seen by her hl7 developer, reports x-rays of her left foot showed arthritis. Admits she goes through a lot of shoes, wears out about one pair a month. Currently wearing croc-like footwear. Reports she has vague memories of wearing braces on her legs as a child, but has no memory of why she worse them or how long. Pt's goal is to be able to tolerate a full work day without severe foot pain by the end of the day. PT-OP-C Subjective Start: 07/10/24 17:38 Freq: Status: Active Protocol: Document 08/28/24 16:16 AB (Rec: 08/28/24 17:51 AB [id number]) OP-PT Subjective Patient Comments Patient Comments Patient reports she worked all day, pain is 4/10 'top of foot start of session PT-OP-F Manual Assessment Start: 07/10/24 17:38 Freq: Status: Active Protocol: Document 07/10/24 16:30 DCW (Rec: 07/11/24 08:38 DCW [id number]) Manual Assessments Joint Mobility Assessment Joint Mobility Mild tenderness at proximal end with mobilization of Assessment left third metatarsal PT-OP-G Mobility & Gait Start: 07/10/24 17:38 Freq: Status: Active Protocol: Document 07/10/24 16:30 DCW (Rec: 07/11/24 08:38 DCW [id number]) OP Gait Assessment Comments Gait Comments Pt exhibits early push off during gait bilaterally with decreased stride length, limitations in bilateral dorsiflexion ROM PT-OP-K Range of Motion Start: 07/10/24 17:38 Freq: Status: Active Protocol: Document 07/10/24 16:30 DCW (Rec: 07/11/24 08:38 DCW [id number]) Ankle and Foot Goniometric Range of Motion Ankle and Foot Right Active Ankle/Foot ROM WFL No Testing Position Sitting Dorsiflexion with 2 Knee Flexed Plantarflexion 45 Inversion 35 Eversion 15 Comments DF with knee extended measured at -3? Left Active Ankle/Foot ROM WFL No Testing Position Sitting Dorsiflexion with 1 Knee Flexed Plantarflexion 40 Inversion 20 Eversion 10 Comments DF with knee extended measured at -5? PT-OP-Q Treatments Start: 07/10/24 17:38 Freq: Status: Active Protocol: Document 08/28/24 16:16 AB (Rec: 08/28/24 17:51 AB [id number]) Therapeutic Exercises Sitting Exercises dorsiflexion Side left Resistance level one band Reps/Minutes X 15 without band X 15 with band band to HEP Comments verbal cues Standing Exercises bilateral heel raise Side bilateral Reps/Minutes X15 on NOAH and X 15 on stairs HEP Comments Verbal and visual cues step through calf stretch Standing Exercise On NOAH with UE use Name Reps/Minutes X 15 each LE Comments verbal and visual cues Manual Therapy Treatment Consent Patient gave verbal Yes consent for manual treatment Soft Tissue Mobilization L foot Body Location Posterior tib, anterior tib and peroneals, ant foot and ankle Mobilization Type Cross-Friction,Rolling,Sustained Pressure L calf Mobilization Type Cross-Friction,Instrument Assisted,Strumming,Sustained Pressure Intensity/Depth Moderate Body Position Prone Comments bilateral heel raise with cupping Joint Mobilizations L ankle MWM Joint TC Direction AP Grade IV Body Position Standing Reps/Duration X 10 X 3 L MTs Joint L foot MTs Direction AP and PA Grade IV Body Position Sitting PT-OP-T Assessment and Plan Start: 07/10/24 17:38 Freq: Status: Active Protocol: Document 08/28/24 16:16 AB (Rec: 08/28/24 17:51 AB [id number]) Physical Therapy Assessment Goals Three Impairment Pt experiences severe pain in L foot by the end of her work day Intermediate Goal (LTG) Pt to report left foot pain is a maximum of 4/10 following her work day for one full week, in order to better tolerate working conditions LTG Duration 09/10/24 Two Impairment Pt displays decreased ankle dorsiflexion bilaterally Truck Repair Service Estimator Goal (LTG) Pt to demonstrate increased AROM of bilateral dorsiflexion to >5? in order to improve gait pattern and decrease functional limitations at her ankles LTG Duration 09/10/24 One Impairment Pt does not have an appropriate home exercise program Short Term Goal (STG Pt to be independent and compliant with an appropriate ) HEP STG Duration 08/10/24 Assessment Summary Assessment Patient reports feeling good end of session. Pain L foot 10 hour work day persists at 4/10 level start of this session. Physical Therapy Plan Frequency and Duration Frequency of 2x/Week Treatment Plan of Care Start 07/10/24 Date Plan of Care End 09/09/24 Date Next Visit Focus/Plan Next Note Type Treatment Note Next Visit Plan joint mobs, calf STM, balance
--- NOTE | 2024-09-02 17:46 | PT.OTN ---
Current Diagnoses Pain in left foot (09/02/24) Physical Therapy Treatment Note PT-OP-A Visit Information Start: 07/10/24 17:38 Freq: Status: Active Protocol: Document 09/02/24 17:00 DCW (Rec: 09/02/24 17:46 DCW [id number]) Out-Patient Physical Therapy Visit Information Visit Information Visit Type Treatment Note Visit Start Time 17:00 Visit Stop Time 17:45 Visit Number 12 Number of ROCKET MOTOR TESTER Visits 0 Evaluation Information Evaluation Date 07/10/24 PT-OP-B Current Condition Start: 07/10/24 17:38 Freq: Status: Active Protocol: Document 07/10/24 16:30 DCW (Rec: 07/10/24 17:49 DCW [id number]) Current Condition History of Current Condition Current Complaints Left foot pain, arthritis History of Current Pt is a 54 year old female presenting with a multi-year Condition history of worsening foot pain. 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 Notes that by the end of the day, my foot is killing me. Was seen by her health administration teacher, reports x-rays of her left foot showed arthritis. Admits she goes through a lot of shoes, wears out about one pair a month. Currently wearing croc-like footwear. Reports she has vague memories of wearing braces on her legs as a child, but has no memory of why she worse them or how long. Pt's goal is to be able to tolerate a full work day without severe foot pain by the end of the day. PT-OP-C Subjective Start: 07/10/24 17:38 Freq: Status: Active Protocol: Document 09/02/24 17:00 DCW (Rec: 09/02/24 17:46 DCW [id number]) OP-PT Subjective Patient Comments Patient Comments It's feeling pretty good. PT-OP-F Manual Assessment Start: 07/10/24 17:38 Freq: Status: Active Protocol: Document 07/10/24 16:30 DCW (Rec: 07/11/24 08:38 DCW [id number]) Manual Assessments Joint Mobility Assessment Joint Mobility Mild tenderness at proximal end with mobilization of Assessment left third metatarsal PT-OP-G Mobility & Gait Start: 07/10/24 17:38 Freq: Status: Active Protocol: Document 07/10/24 16:30 DCW (Rec: 07/11/24 08:38 DCW [id number]) OP Gait Assessment Comments Gait Comments Pt exhibits early push off during gait bilaterally with decreased stride length, limitations in bilateral dorsiflexion ROM PT-OP-K Range of Motion Start: 07/10/24 17:38 Freq: Status: Active Protocol: Document 07/10/24 16:30 DCW (Rec: 07/11/24 08:38 DCW [id number]) Ankle and Foot Goniometric Range of Motion Ankle and Foot Right Active Ankle/Foot ROM WFL No Testing Position Sitting Dorsiflexion with 2 Knee Flexed Plantarflexion 45 Inversion 35 Eversion 15 Comments DF with knee extended measured at -3? Left Active Ankle/Foot ROM WFL No Testing Position Sitting Dorsiflexion with 1 Knee Flexed Plantarflexion 40 Inversion 20 Eversion 10 Comments DF with knee extended measured at -5? PT-OP-Q Treatments Start: 07/10/24 17:38 Freq: Status: Active Protocol: Document 09/02/24 17:00 DCW (Rec: 09/02/24 17:46 DCW [id number]) Gym Equipment Shuttle Balance Red Details DF/PF, Staggered, Lateral weight-shift Therapeutic Exercises Other Exercises BOSU Lunge Other Exercise Name BOSU Lunge Equipment Used Blue BOSU SLS Other Exercise Name SLS Side bilateral Step-downs Other Exercise Name Lateral step-ups Side bilateral Equipment Used 6 step Foam Stance Other Exercise Name Tandem on Foam, SLS on foam Side bilateral Equipment Used AirEx Comments Supervision to CGA hands above bars Manual Therapy Treatment Consent Patient gave verbal Yes consent for manual treatment Soft Tissue Mobilization L foot Body Location Posterior tib, anterior tib and peroneals, ant foot and ankle Mobilization Type Cross-Friction,Rolling,Sustained Pressure Body Position Sitting L calf Mobilization Type Cross-Friction,Instrument Assisted,Strumming,Sustained Pressure Intensity/Depth Moderate Body Position Sitting Joint Mobilizations L ankle MWM Joint TC Direction AP Grade IV Body Position Standing Reps/Duration X 10 X 3 L MTs Joint L foot MTs Direction AP and PA Grade IV Body Position Sitting PT-OP-T Assessment and Plan Start: 07/10/24 17:38 Freq: Status: Active Protocol: Document 09/02/24 17:00 DCW (Rec: 09/02/24 17:46 ZEN [id number]) Physical Therapy Assessment Impairments Impairments Functional Activities,Functional Mobility,Gait,Pain,ROM ,Soft Tissue Mobility,Tone Goals Three Impairment Pt experiences severe pain in L foot by the end of her work day Pole Peeling Machine 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 in order to improve gait pattern and decrease functional limitations at her ankles LTG Duration 09/10/24 One Impairment Pt does not have an appropriate home exercise program Short Term Goal (STG Pt to be independent and compliant with an appropriate ) HEP STG Duration 08/10/24 Assessment Summary Assessment Pt continues to progress well, able to tolerated balance challenges with no increased foot pain. Pt noted no foot pain today to start session, overall continue to focus on STM/mobs, balance, and strengthening. Physical Therapy Plan Frequency and Duration Frequency of 2x/Week Treatment Plan of Care Start 07/10/24 Date Plan of Care End 09/09/24 Date Therapeutic Interventions Therapeutic Balance Training,Gait Training,Home Exercise Program, Interventions Joint Mobilizations,Manual Therapy,Neuromuscular Re- education,Patient/Caregiver Education,Self-Care/Home Management,Soft Tissue Mobilization,Therapeutic Activities,Therapeutic Exercises Next Visit Focus/Plan Next Note Type Treatment Note Next Visit Plan joint mobs, calf STM, balance
--- NOTE | 2024-09-04 18:11 | PT.OTN ---
Current Diagnoses Pain in left foot (09/04/24) Physical Therapy Treatment Note PT-OP-A Visit Information Start: 07/10/24 17:38 Freq: Status: Active Protocol: Document 09/04/24 17:01 AB (Rec: 09/04/24 18:10 AB [id number]) Out-Patient Physical Therapy Visit Information Visit Information Visit Type Treatment Note Visit Note Access Code: [email or web address] Visit Start Time 17:08 Visit Stop Time 17:50 Visit Number 13 Number of AREA LOSS PREVENTION MANAGER Visits 1 PT-OP-B Current Condition Start: 07/10/24 17:38 Freq: Status: Active Protocol: Document 07/10/24 16:30 DCW (Rec: 07/10/24 17:49 DCW [id number]) Current Condition History of Current Condition Current Complaints Left foot pain, arthritis History of Current Pt is a 54 year old female presenting with a multi-year Condition history of worsening foot pain. 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 Notes that by the end of the day, my foot is killing me. Was seen by her costume designer, reports x-rays of her left foot showed arthritis. Admits she goes through a lot of shoes, wears out about one pair a month. Currently wearing croc-like footwear. Reports she has vague memories of wearing braces on her legs as a child, but has no memory of why she worse them or how long. Pt's goal is to be able to tolerate a full work day without severe foot pain by the end of the day. PT-OP-C Subjective Start: 07/10/24 17:38 Freq: Status: Active Protocol: Document 09/04/24 17:01 AB (Rec: 09/04/24 18:10 AB [id number]) OP-PT Subjective Patient Comments Patient Comments Patient reports she has a click ant ankle with AROM DF PF. Patient reports this started yesterday, which hurts with repeated reps. PT-OP-F Manual Assessment Start: 07/10/24 17:38 Freq: Status: Active Protocol: Document 07/10/24 16:30 DCW (Rec: 07/11/24 08:38 DCW [id number]) Manual Assessments Joint Mobility Assessment Joint Mobility Mild tenderness at proximal end with mobilization of Assessment left third metatarsal PT-OP-G Mobility & Gait Start: 07/10/24 17:38 Freq: Status: Active Protocol: Document 07/10/24 16:30 DCW (Rec: 07/11/24 08:38 DCW [id number]) OP Gait Assessment Comments Gait Comments Pt exhibits early push off during gait bilaterally with decreased stride length, limitations in bilateral dorsiflexion ROM PT-OP-K Range of Motion Start: 07/10/24 17:38 Freq: Status: Active Protocol: Document 07/10/24 16:30 DCW (Rec: 07/11/24 08:38 DCW [id number]) Ankle and Foot Goniometric Range of Motion Ankle and Foot Right Active Ankle/Foot ROM WFL No Testing Position Sitting Dorsiflexion with 2 Knee Flexed Plantarflexion 45 Inversion 35 Eversion 15 Comments DF with knee extended measured at -3? Left Active Ankle/Foot ROM WFL No Testing Position Sitting Dorsiflexion with 1 Knee Flexed Plantarflexion 40 Inversion 20 Eversion 10 Comments DF with knee extended measured at -5? PT-OP-Q Treatments Start: 07/10/24 17:38 Freq: Status: Active Protocol: Document 09/04/24 17:01 AB (Rec: 09/04/24 18:10 AB [id number]) Gym Equipment Shuttle Balance Red Details DF/PF, Staggered, Lateral weight-shift Comments stagger with head turns and visual scanning Therapeutic Exercises Sitting Exercises dorsiflexion Sitting Exercise DF, eversion, inversion Name Side left Resistance level one band Reps/Minutes X 15 without band X 15 with band band to HEP Comments verbal cues Standing Exercises bilateral heel raise Standing Exercise single leg heel raise Name Side bilateral Reps/Minutes X 15 on step Comments Verbal and visual cues Squats Standing Exercise sit to stand Name Side bilateral Resistance Level 4 band holding 3 lb weights for 2nd and 3rd set Reps/Minutes X 10 X 3 Comments Verbal cues for LE alignment and hip hinge step through calf stretch Standing Exercise On NOAH with UE use Name Reps/Minutes X 15 each LE 60 sec knee straight 60 sec knee bent X 2 Comments verbal and visual cues Other Exercises BOSU step ups Reps/Minutes X 10 each LE Comments CGA hands above bars SLS Other Exercise Name SLS on foam Side bilateral Manual Therapy Treatment Consent Patient gave verbal Yes consent for manual treatment Soft Tissue Mobilization L calf Mobilization Type Cross-Friction,Instrument Assisted,Strumming,Sustained Pressure Intensity/Depth Moderate Body Position Prone PT-OP-T Assessment and Plan Start: 07/10/24 17:38 Freq: Status: Active Protocol: Document 09/04/24 17:01 AB (Rec: 09/04/24 18:10 AB [id number]) Physical Therapy Assessment Goals Three Impairment Pt experiences severe pain in L foot by the end of her work day Half-Way Goal (LTG) Pt to report left foot pain is a maximum of 4/10 following her work day for one full week, in order to better tolerate working conditions LTG Duration 09/10/24 Two Impairment Pt displays decreased ankle dorsiflexion bilaterally Half-Way Goal (LTG) Pt to demonstrate increased AROM of bilateral dorsiflexion to >5? in order to improve gait pattern and decrease functional limitations at her ankles LTG Duration 09/10/24 One Impairment Pt does not have an appropriate home exercise program Short Term Goal (STG Pt to be independent and compliant with an appropriate ) HEP STG Duration 08/10/24 Assessment Summary Assessment Patient reports clicking sensation is less with AROM DF post performing strengthening ex this session. Physical Therapy Plan Frequency and Duration Frequency of 2x/Week Treatment Plan of Care Start 07/10/24 Date Plan of Care End 09/09/24 Date Next Visit Focus/Plan Next Note Type Treatment Note Next Visit Plan joint mobs, calf STM, balance
--- NOTE | 2024-09-09 17:44 | PT.OTN ---
Current Diagnoses Pain in left foot (09/09/24) Physical Therapy Treatment Note PT-OP-A Visit Information Start: 07/10/24 17:38 Freq: Status: Active Protocol: Document 09/09/24 17:00 DCW (Rec: 09/09/24 17:44 DCW [id number]) Out-Patient Physical Therapy Visit Information Visit Information Visit Type Discharge Summary Visit Start Time 17:00 Visit Stop Time 17:45 Visit Number 14 Number of FARM MACHINERY ENGINE MECHANIC Visits 0 Evaluation Information Evaluation Date 07/10/24 PT-OP-B Current Condition Start: 07/10/24 17:38 Freq: Status: Active Protocol: Document 07/10/24 16:30 DCW (Rec: 07/10/24 17:49 DCW [id number]) Current Condition History of Current Condition Current Complaints Left foot pain, arthritis History of Current Pt is a 54 year old female presenting with a multi-year Condition history of worsening foot pain. 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 Notes that by the end of the day, my foot is killing me. Was seen by her spray painting machine operator, reports x-rays of her left foot showed arthritis. Admits she goes through a lot of shoes, wears out about one pair a month. Currently wearing croc-like footwear. Reports she has vague memories of wearing braces on her legs as a child, but has no memory of why she worse them or how long. Pt's goal is to be able to tolerate a full work day without severe foot pain by the end of the day. PT-OP-C Subjective Start: 07/10/24 17:38 Freq: Status: Active Protocol: Document 09/09/24 17:00 DCW (Rec: 09/09/24 17:44 DCW [id number]) OP-PT Subjective Patient Comments Patient Comments Pt reports her foot has felt tight and was cracking or clicking last week. PT-OP-F Manual Assessment Start: 07/10/24 17:38 Freq: Status: Active Protocol: Document 07/10/24 16:30 DCW (Rec: 07/11/24 08:38 DCW [id number]) Manual Assessments Joint Mobility Assessment Joint Mobility Mild tenderness at proximal end with mobilization of Assessment left third metatarsal PT-OP-G Mobility & Gait Start: 07/10/24 17:38 Freq: Status: Active Protocol: Document 07/10/24 16:30 DCW (Rec: 07/11/24 08:38 DCW [id number]) OP Gait Assessment Comments Gait Comments Pt exhibits early push off during gait bilaterally with decreased stride length, limitations in bilateral dorsiflexion ROM PT-OP-K Range of Motion Start: 07/10/24 17:38 Freq: Status: Active Protocol: Document 07/10/24 16:30 DCW (Rec: 07/11/24 08:38 DCW [place] [id number]) Ankle and Foot Goniometric Range of Motion Ankle and Foot Right Active Ankle/Foot ROM WFL No Testing Position Sitting Dorsiflexion with 2 Knee Flexed Plantarflexion 45 Inversion 35 Eversion 15 Comments DF with knee extended measured at -3? Left Active Ankle/Foot ROM WFL No Testing Position Sitting Dorsiflexion with 1 Knee Flexed Plantarflexion 40 Inversion 20 Eversion 10 Comments DF with knee extended measured at -5? PT-OP-Q Treatments Start: 07/10/24 17:38 Freq: Status: Active Protocol: Document 09/09/24 17:00 DCW (Rec: 09/09/24 17:44 DCW [id number]) Gym Equipment Shuttle Balance Red Details DF/PF, Staggered Therapeutic Exercises Other Exercises BOSU step ups Reps/Minutes X 10 each LE Comments CGA hands above bars BOSU Lunge Other Exercise Name BOSU Lunge Equipment Used Blue BOSU SLS Other Exercise Name SLS on foam Side bilateral Foam Stance Other Exercise Name Tandem on Foam Side bilateral Equipment Used AirEx Comments Supervision to CGA hands above bars Manual Therapy Treatment Consent Patient gave verbal Yes consent for manual treatment Soft Tissue Mobilization L foot Body Location Posterior tib, anterior tib and peroneals, ant foot and ankle Mobilization Type Cross-Friction,Rolling,Sustained Pressure Body Position Sitting L calf Mobilization Type Cross-Friction,Instrument Assisted,Strumming,Sustained Pressure Intensity/Depth Moderate Body Position Sitting Joint Mobilizations L MTs Joint L foot MTs Direction AP and PA Grade IV Body Position Sitting PT-OP-T Assessment and Plan Start: 07/10/24 17:38 Freq: Status: Active Protocol: Document 09/09/24 17:00 DCW (Rec: 09/09/24 17:44 DCW [id number]) Physical Therapy Assessment Impairments Impairments Functional Activities,Functional Mobility,Gait,Pain,ROM ,Soft Tissue Mobility,Tone Goals Three Impairment Pt experiences severe pain in L foot by the end of her work day Jail Goal (LTG) Pt to report left foot pain is a maximum of 4/10 following her work day for one full week, in order to better tolerate working conditions LTG Duration Met Two Impairment Pt displays decreased ankle dorsiflexion bilaterally Jail Goal (LTG) Pt to demonstrate increased AROM of bilateral dorsiflexion to >5? in order to improve gait pattern and decrease functional limitations at her ankles LTG Duration Met One Impairment Pt does not have an appropriate home exercise program Short Term Goal (STG Pt to be independent and compliant with an appropriate ) HEP STG Duration Met Progress Towards Goals Progress Towards Goals Met Goals Assessment Summary Assessment Pt much less sore after a day of work, feels she has met all original goals. Feels comfortable with performing independent HEP. Agreeable with discharge at this time. Physical Therapy Plan Frequency and Duration Frequency of 2x/Week Treatment Plan of Care Start 07/10/24 Date Plan of Care End 09/09/24 Date Therapeutic Interventions Therapeutic Balance Training,Gait Training,Home Exercise Program, Interventions Joint Mobilizations,Manual Therapy,Neuromuscular Re- education,Patient/Caregiver Education,Self-Care/Home Management,Soft Tissue Mobilization,Therapeutic Activities,Therapeutic Exercises Discharge Physical Therapy Discharge Reasons Goals Met Next Visit Focus/Plan Next Note Type Discharge Summary
== END 2024-09-10 11:27 | disposition home or self-care (01) ==
LOC: PHYS 17:00
PROVIDERS: Family Provider Student in an Organized Health Care Education/Training Program; PCP Student in an Organized Health Care Education/Training Program; Referring Provider Podiatrist; Visit Provider Podiatrist
DX: M79.672 Pain in left foot (principal)
CPT/HCPCS: 97110; 97112; 97140; 97162